=== PATIENT | female | born 1980 | race Caucasian/White ===

== ENCOUNTER 2024-02-29 17:56 | Emergency (ER) | payer MEDICAID, SELFPAY ==
[2024-02-29] VITALS (16 sets, daily range): BP systolic 92–128; BP diastolic 56–85; PULSE 90–118; RESP 19–29; TEMP 36.7; O2SAT 95
[2024-02-29] MEDS: Haloperidol 5 MG/ML VIAL 2 MG IM (18:00)
[2024-02-29] MEDS: diphenhydrAMINE 50 MG/ML VIAL IM (18:00)
--- NOTE | 2024-02-29 18:15 | ED.GENADUL_ITS ---
Discharge Plan Disposition Patient Disposition: Home Condition: Stable Discharge Details Clinical Impression: Drug use disorder ED Provider: Johnson Shook Home Meds and New Rx's Prescriptions: No Action No Known Home Meds Discharge Instructions Additional Instructions: PLEASE STOP USING DRUGS TO EXCESS HPI General Date/Time Provider Initiated Documentation: 02/29/24 17:58 . Limitations to Documentation: altered mental status . Information obtained by: patient and police . HPI Narrative: 43-year-old female with unknown past medical history is brought in by police with concern for altered mental status. The police state that they received multiple 911 calls regarding this patient wandering in the street and trying to get into cars. They report when they approached the patient, they found her to not be making any sense and they were concerned for her wellbeing. There were no statements of self-harm or concern for self-harm other than being in the street., The patient did report to the police that she has recently done methamphetamine. Patient is not able to provide additional history to me. At this time she states that she just wants ice water and heroin. Related Data Home Medications Medication Instructions Recorded Confirmed Unknown [No Known Home Meds] 02/29/24 02/29/24 Allergies Allergy/AdvReac Type Severity Reaction Status Date / Time Penicillins Allergy Mild Skin Rash Verified 02/29/24 18:30 Exam Narrative Exam Narrative: Review of Systems: All systems reviewed & are unremarkable except as noted in HPI and below Disheveled, agitated, is not wearing shoes NCAT PERRL, normal conjunctiva Tachycardic Unlabored respiratory effort Nondistended abdomen Extremities w/o deformity, no cyanosis, no edema Superficial abrasion noted on the right knee, there are multiple bruises and scratches noted bilateral lower extremities on feet and calves no focal neurologic deficits Appropriate mood and affect Medical Decision Making Emergent evaluation of altered mental status. Initial differential includes polysubstance abuse, less likely decompensated mental illness, no evidence of significant trauma. Patient brought in by police due to their concern for her walking in the street. Patient is fairly agitated slightly paranoid. She states she is concerned that the police shoot her. 1819 After medication, the patient is more calm and able to answer questions. She states that she was fine and then she was not fine. She states that she has been for becoming not finding she smoked crack. 1919 Lab work reviewed. Slightly elevated white blood cell count, no anemia. There is shift noted. Suspect this is stress and not infectious etiology. Potassium slightly low. There is mild elevation in BUN and creatinine. She is being resuscitated with IV fluids. Her CPK is only slightly elevated at 258, I do not suspect rhabdo. Her thyroid study is within normal limits. Her alcohol level is 0. She is currently being monitored and vital signs are stable. Okay to remove the restraints at this time 2049 Patient has been observed in the emergency department, her vitals have been stable. Her mental status has continued to improve and normalized. At this time I do not think that there is any additional emergent condition that needs further evaluation. I suspect her behavior and symptoms are secondary to crack use. She has metabolized. Will contact her boyfriend to see if we can get her a ride home. Medical Records Medical records reviewed: Yes I reviewed the patient's medical records. Lab Data Lab results reviewed: Yes I reviewed the patient's lab results. Quality:SDOH Health Related Social Needs: No Data to Display PFSH All Active Problems (Updated 02/29/24 @ 21:06 by Johnson Shook MD) Drug use disorder (Acute) Social History Smoking/Tobacco Use Status: Never Smoking risk assessment performed?: Yes Alcohol Intake: current Drug use: Daily Substance use type: marijuana, crack/cocaine, amphetamines, opiates, painkillers, IV drugs and methamphetamine In current or past relationships, have you been: made to feel afraid Do you feel safe at home: No Do you feel safe in your relationship?: No Additional Social history: afraid at home
[2024-02-29 18:33] LABS: Abs Immature Grans 0.14 10^3/uL (0.0-0.06); Absolute Basophil Count 0.04 10^3/uL (0.0-0.2); Absolute Eosinophil Count 0.02 10^3/uL (0.0-0.7); Absolute Lymphocyte Count 1.12 10^3/uL (1.2-3.4); Basophils % 0.2 %; Eosinophils % 0.1 %; HCT 39.3 % (36.0-46.0); HGB 12.4 g/dL (11.2-15.7); Immature Grans % 0.8 %; Lymphocytes % 6.1 %; MCH 26.6 pg (27.0-33.0); MCHC 31.6 % (32.0-36.0); MCV 84 fL (80-95); MPV 8.9 fL (8.0-11.0); Neutrophils % 85.8 %; Platelet Count 367 10^3/uL (130-400); RBC 4.67 10^6/uL (3.93-5.22); RDW 16.2 % (11.7-14.6); RDW-SD 49.5 fL
[2024-02-29 18:34] LABS: Absolute Monocyte Count 1.29 10^3/uL (0.1-0.8); Absolute Neutrophil Count 15.79 10^3/uL (1.2-6.7)
[2024-02-29] MEDS: LORazepam 2 MG/ML VIAL IM (18:37)
[2024-02-29] MEDS: Normal Saline 1,000 ML 1000 ML IV ×2 (18:40→20:00)
[2024-02-29 18:49] LABS: ALT 26 U/L (14-59); AST 34 U/L (15-37); Albumin 3.7 g/dL (3.4-5.0); Alkaline Phosphatase 112 U/L (46-116); Anion Gap 11.6 mmol/L (3-11); BUN 19 mg/dL (7-18); Bilirubin, Total 0.31 mg/dL (0.2-1.0); CO2 25.4 mmol/L (21.0-32.0); CREATININE 1.1 mg/dL (0.55-1.02); Calcium 9.1 mg/dL (8.5-10.1); Chloride 108 mmol/L (98-107); Creatine Kinase 258 U/L (26-192); Estimated GFR 63.15 (mL/min/1.73m2); Glucose 145 mg/dL (74-106); Magnesium 2.1 mg/dL (1.8-2.4); Potassium 3.4 mmol/L (3.5-5.1); Sodium 145 mmol/L (136-145); Total Protein 7.8 g/dL (6.4-8.2)
[2024-02-29 18:59] LABS: TSH 1.02 uIU/Ml (0.36-3.74)
[2024-02-29 19:09] LABS: ETHANOL BLOOD < 3.0 mg/dL (<10)
--- NOTE | 2024-02-29 19:09 | PDOC.CMSAFE ---
Date of service: 02/29/24 Time of Service: 19:14 Care Management Safety Plan Status Status: Interim Reason for Wait Reason for Wait: Medical Clearance Safety Plan Safety Plan: Jennyfer was brought in by [facility] after found wondering in public. She has not made any SI/HI statements, but presents as delusional and not making sense, per [facility]. She reported to police that she recently used methamphetamine. She is not yet medically cleared. CM will respond to ED to assess patient after patient has been medically cleared and assessed by screener. If screener deems patient meets criteria for psychiatric stabilization CM will facilitate interdepartmental huddle with [facility] screener for safety planning considerations and meet with patient to review [facility] policy and safety plan, establish individual wishes for treatment and maintain patient rights. In the interim; please note safety plan below to guide patient care while awaiting further assessment in the ED.? SAFETY PLAN: 1. Will remain on suicide precautions and in paper clothes.? 2. Will remain in room under direct supervision of one-on-one staff at all times provided by MARIA C, ELECTRICAL CONTROL ASSEMBLER paint line supervisor. 3. May have paper cups, plates, finger foods as well as a cardboard spoon with which to eat meals. 4. Follow [facility] Management of the Admitted Behavioral Health Patient policy. 5. Comfort bath system vs shower, at RN discretion. 6. No personal belongings 7. No visitors. 8. Phone: limited to [facility] cordless phone, at RN discretion. 9. Due to VOLUNTARY status, if patient wishes to leave [facility], staff will contact [facility] Crisis Screener ([phone]) as soon as possible. In the event of elopement, notify [facility] Police ([phone]). ? If deemed appropriate for inpatient psychiatric care, safety plan will be established with patient, and care team, to adhere to patient goals, identify restrictions based on behavioral status, address nutrition, and determine allowed personal belongings, tools for hygiene and personal care. As well plan will determine level of activity including ambulation, level of supervision, visitors, and determine privileges based on level of acuity, behaviors and level of engagement by patient.
[2024-02-29] MEDS: Normal Saline Flush 10 ML SYR IVP (20:16)
== END 2024-02-29 21:24 | disposition home or self-care (01) ==
LOC: ER 22:51
PROVIDERS: Emergency Provider Emergency Medicine
DX: F19.10 Other psychoactive substance abuse, uncomplicated (principal); R41.82 Altered mental status, unspecified
CPT/HCPCS: 36415; 80053; 82550; 96360; 96361; 96372; 99285; 80320; 83735; 84443; 85025; 99283; J1200; J1630; J2060

== ENCOUNTER 2024-02-29 23:54 | Emergency (ER) | payer MEDICAID, SELFPAY ==
--- NOTE | 2024-02-29 23:56 | ED.GENADUL_ITS ---
Discharge Plan Disposition Condition: Stable Discharge Details Chief Complaint: PsychEval Clinical Impression: Substance abuse, Paranoia Primary Care Provider: Unknown,Unknown ED Provider: Felix Starkey Home Meds and New Rx's Prescriptions: No Action No Known Home Meds HPI General Mode of arrival: ambulatory . Date/Time Provider Initiated Documentation: 02/29/24 23:56 . Limitations to Documentation: no limitations . Information obtained by: patient . HPI Narrative: Patient has checked back into the ED with complaint of not feeling safe to go home. She had arrived earlier this day with [facility] and altered mental status. She was medicated. Ultimately determined that she had been using crack cocaine today. She was discharged but once in the waiting room while waiting for a ride home began making statements that she did not feel safe going home. A friend did arrive and was upset that she was being discharged. He reports having her at [facility] at some point recently. He feels he needs a mental health evaluation. On direct questioning of the patient back in the ED she reports feeling like somebody is going to hurt her at home. She does not actually name an individual or person. She just states that she has this feeling. Denies SI or HI. Denies physical complaints. Admits to drug use. Related Data Home Medications Medication Instructions Recorded Confirmed Unknown [No Known Home Meds] 02/29/24 02/29/24 Allergies Allergy/AdvReac Type Severity Reaction Status Date / Time Penicillins Allergy Mild Skin Rash Verified 02/29/24 18:30 General BLANCHE: 2 Review of Systems Narrative: Per HPI Exam Narrative Exam Narrative: Const: WDWN female in NAD. VS per triage. HEENT: NC/AT. Normal facial exam. Neck: Supple. Trachea midline. Lungs: Normal respiratory effort. Lungs are clear. Cor: RRR without murmur. Good radial pulses. GI: Soft/ND. Neuro: Difficulty staying awake, but oriented. Normal speech, gait. Cranial nerves II - XII grossly intact. No gross motor or sensory deficit. Skin: Abrasions, track wright, bruises noted. Psych: No SI or HI, feels unsafe at home because she feels someone is trying to get her. Medical Decision Making I reviewed the patient's previous ED visit from today. Laboratory studies with elevated white count, slightly low potassium, slightly elevated BUN and creatinine. Agree with assessment that the elevated white count likely related to stress reaction. She received IV fluids here. She is able to eat and drink normally so suspect her mild hypokalemia will correct itself. Her alcohol level was 0. No urine drug screen obtained so this is ordered tonight. Urine test ordered. Cleared for mental health evaluation. Patient spoke with [facility]. They received the same information I did in regards to no SI or HI but paranoia regarding feeling that people are out to get her leading to her feeling unsafe at home. She is voluntary requesting mental health and drug addiction treatment. [facility] recommends holding overnight, reevaluation in the morning, but they are sending out referrals for inpatient admission. Lab Data Lab results reviewed: Yes I reviewed the patient's lab results. PFSH All Active Problems (Updated 03/01/24 @ 00:30 by Felix Starkey MD) Paranoia (Acute) Substance abuse (Acute) Drug use disorder (Acute) Social History Smoking/Tobacco Use Status: Never Smoking risk assessment performed?: Yes Alcohol Intake: current Drug use: Daily Substance use type: marijuana, crack/cocaine, amphetamines, opiates, painkillers, IV drugs and methamphetamine Details: last use this evening 02/29/24 Housing: house In current or past relationships, have you been: made to feel afraid Do you feel safe at home: No Do you feel safe in your relationship?: No Additional Social history: afraid at home
[2024-03-01] VITALS: BP 103/78; PULSE 89; RESP 16; TEMP 36.6; O2SAT 95
[2024-03-01 00:33] LABS: *AMPHETAMINES SCREEN URINE Positive (Negative); *BARBITURATES SCREEN URINE Negative (Negative); *BENZODIAZEPINES SCREEN URINE Negative (Negative); Cannabinoids THC Positive (Negative); Cocaine Screen,Urine Positive (Negative); METHADONE URINE SCREEN Negative (Negative); OPIATES URINE SCREEN Negative (Negative)
[2024-03-01 00:36] LABS: Tricyclic Antidepressants Negative (Negative)
--- NOTE | 2024-03-01 00:40 | PDOC.MHCN_ITS ---
Date of service: 03/01/24 Time of Service: 00:27 Mental Health Emergency Note Release [facility] release signed:: No Reason for Visit Client is seeking inpatient treatment In the last 2 weeks has the pt presented for ES prior to today?: Yes, presented at [facility] ED Client Information Client is: New Well Housed: Yes Non Suicidal Self Injury Current: No History: No Safety Risk/Harm to Self or Others Current Ideation to Harm Self or Others: No Risk: Does risk to harm exist?: No Risk: Low Risk Duty to warn indicated: No Asssessment/Mental Status Appearance: Disheveled Attitude: Passive and Guarded Behavior: Poor impulse control and Gait disturbances Speech: Slow and Slurred Affect: Flat Mood: Stressed and Anxious Thought process: Poverty of content Hallucinations: No evidence Delusions: yes, Persectory/Paranoid Attention: Poor concentration Perception: Not impaired Orientation: Fully orientated Memory: Intact Insight: Poor Judgement: Poor Neurovegetative Symptoms Sleep: Decrease Appetitie: No change Interests: No change Energy: No change Libido: Not applicable Substance Use: Do you use nicotine?: No Have you used substances in the last 7 days?: yes, Client reports using cocaine today and meth yesterday. Additional Issues: Assaultive/Threatening Behavior: No Medical Concerns: No Client engaged in active self harm w/weapon: No Threatening to run away: No Child reported abuse/neglect: No Voluntarily presenting for services: Yes Domestic violence is a concern: No Extreme Psychosis or extreme behavior is present: Yes Impression Jennyfer presents to this story writer laying in the hospital bed, in street clothes, with slurred speech, closed eyes, and minimal responses. Jennyfer reports that she does not feel safe at home because she feels like someone is there to harm her. Jennyfer reports she is unsure who this person is or if there is someone who would harm her. Jennyfer reports she has never felt like this before and is not sure what brought this on. Jennyfer denies SI, HI, NSSI. Jennyfer reports no current mental health diagnosis or medications on board.Jennyfer's current presentation is displaying an altered mental status, poor insight and judgment, and inability to make a sound and safe decision. This story writer cannot identify if this is her true mental status, due to sleep deprevation, or due to her recent substance usage. Jennyfer will remain at [facility] voluntarily and will be reassessed in the morning. Plan/Disposition Recommended Disposition: Hospitalization (referrals will be sent to all hospitals.) facilities contacted. Plan: Jennyfer will remain at [facility] until voluntary placement is found Person reported agreement to plan: Yes Reports/communication Outcome discussed with: ED/Personnel
--- NOTE | 2024-03-01 09:03 | W.EDPROG ---
Date of service: 03/01/24 Time of Service: 09:03 Medical Decision Making I received signout on this 43-year-old patient in the emergency department feeling unsafe at home voluntarily. No active behavioral issues last shift. Will have [facility] reassess the patient. 9:36 AM I spoke with Myranda from [facility] who had assessed this patient. Myranda felt that the patient would require inpatient hospitalization. Patient will remain voluntary in the emergency department. Patient is on no home medications. I ordered the patient a regular diet on a safety tray. 4:45 PM No active behavioral issues on my shift. Patient signed out to the [facility] evening provider pending placement. Quality:SDOH Health Related Social Needs: No Data to Display Discharge Plan Disposition Condition: Stable Discharge Details Chief Complaint: PsychEval Clinical Impression: Substance abuse, Paranoia Primary Care Provider: Unknown,Unknown ED Provider: Tonio Cervantes Home Meds and New Rx's Prescriptions: No Action No Known Home Meds
--- NOTE | 2024-03-01 18:47 | W.EDPROG ---
Date of service: 03/01/24 Time of Service: 18:48 Medical Decision Making There is an from off going provider. Patient was evaluated yesterday with altered mental status after crack cocaine use. She was discharged home but sat in the lobby and stated that she did not feel safe going home. She does not endorse any SI or HI. She has been evaluated by mental health services and is pending voluntary psychiatric placement. Medical Records Medical records reviewed: Yes I reviewed the patient's medical records. Quality:[facility] Health Related Social Needs: No Data to Display Sign Out Sign Out Data: Sign Out Comment: 43-year-old female history of substance abuse seen initially yesterday subsequently discharged return paranoid with reported delusions pending voluntary placement. No active behavioral issues last shift. Last updated by Tonio Cervantes MD at 03/01/24 16:47 Discharge Plan Disposition Condition: Stable Discharge Details Chief Complaint: PsychEval Clinical Impression: Substance abuse, Paranoia Primary Care Provider: Unknown,Unknown ED Provider: Johnson Shook Home Meds and New Rx's Prescriptions: No Action omeprazole 20 mg capsule,delayed release(DR/EC) 20 mg PO HS
--- NOTE | 2024-03-01 18:52 | CMSP_ITS ---
Date of service: 03/01/24 Time of Service: 18:52 Care Management Safety Plan Status Status: Voluntary Reason for Wait Reason for Wait: Inpatient Admission Safety Plan Safety Plan: VOLUNTARY FOR INPATIENT PSYCHIATRIC STABILIZATION.? Patient is appropriate in all interactions since arriving at [facility]; Pt has demonstrated appropriate coping and communication skills, has articulated his or her needs and concerns and is fully engaged during staff interactions. Safety plan has been established with patient, and care team, to adhere to patient goals, identify restrictions based on behavioral status, address nutrition, and determine allowed personal belongings, tools for hygiene and personal care. Determine level of activity including ambulation, level of supervision, visitors, and determine privileges based on behaviors and level of engagement by pt. VOLUNTARY SAFETY PLAN: 1. Will remain on suicide precautions, in paper clothes 2. Will remain in Zone B under direct supervision of one-on-one staff at all times provided by [employer]; MARIA C, BIOMATERIALS ENGINEER line crew supervisor. 3. May have paper cups, plates, finger foods as well as a cardboard spoon with which to eat meals. 4. Follow [facility] Management of the Admitted Behavioral Health Patient policy. 5. Shower available in Zone B without restriction. 6. Personal belongings-soft items permitted at RN discretion. 7. Visitors-none at this time. 8. Activities: soft cart items approved per RN discretion. 9.? Bathroom available in Zone B without restriction. 10. Phone: limited to [facility] cordless phone at RN discretion. Due to VOLUNTARY status, if patient wishes to leave [facility], staff will contact [facility] Crisis Screener ([phone]) and Vp Of Customer Experience Strategy ([phone]) as soon as possible. In the event of elopement, notify [facility] Police ([phone]). Patient is currently voluntarily at [facility] and seeking inpatient admission when a bed becomes available. [facility] Frontline Gre Instructor will continue seeking jose cement. Please contact the Vp Of Customer Experience Strategy ([phone]) and [facility] Gre Instructor ([phone]) for any needed changes in the Safety Plan. Safety plan has been provided to interdepartmental care team.
--- NOTE | 2024-03-01 18:52 | PDOC.CMSAFE ---
Date of service: 03/01/24 Time of Service: 18:52 Care Management Safety Plan Status Status: Voluntary Reason for Wait Reason for Wait: Inpatient Admission Safety Plan Safety Plan: VOLUNTARY FOR INPATIENT PSYCHIATRIC STABILIZATION.? Patient is appropriate in all interactions since arriving at [facility]; Pt has demonstrated appropriate coping and communication skills, has articulated his or her needs and concerns and is fully engaged during staff interactions. Safety plan has been established with patient, and care team, to adhere to patient goals, identify restrictions based on behavioral status, address nutrition, and determine allowed personal belongings, tools for hygiene and personal care. Determine level of activity including ambulation, level of supervision, visitors, and determine privileges based on behaviors and level of engagement by pt. VOLUNTARY SAFETY PLAN: 1. Will remain on suicide precautions, in paper clothes 2. Will remain in Zone B under direct supervision of one-on-one staff at all times provided by [employer]; MARIA C, PATTERN DATA OPERATOR professor of history. 3. May have paper cups, plates, finger foods as well as a cardboard spoon with which to eat meals. 4. Follow [facility] Management of the Admitted Behavioral Health Patient policy. 5. Shower available in Zone B without restriction. 6. Personal belongings-soft items permitted at RN discretion. 7. Visitors-none at this time. 8. Activities: soft cart items approved per RN discretion. 9.? Bathroom available in Zone B without restriction. 10. Phone: limited to [facility] cordless phone at RN discretion. Due to VOLUNTARY status, if patient wishes to leave [facility], staff will contact [facility] Crisis Screener ([phone]) and Editor House Organ ([phone]) as soon as possible. In the event of elopement, notify [facility] Police ([phone]). Patient is currently voluntarily at [facility] and seeking inpatient admission when a bed becomes available. [facility] Frontline Preventive Maintenance Engineer will continue seeking placement. Please contact the Editor House Organ ([phone]) and [facility] Preventive Maintenance Engineer ([phone]) for any needed changes in the Safety Plan. Safety plan has been provided to interdepartmental care team.
--- NOTE | 2024-03-01 18:53 | CMPROGNOTE_ITS ---
Date of service: 03/01/24 Time of Service: 18:53 Care Management Progress Note Progress Note Text Progress Note Text: Jennyfer met with [facility] today and expressed both SI and HI, passive, with no plan or intent. She stated that she feels that people in her house are slipping her things and trying to kill her. Myranda, [facility], plans to gather corroborating information from [facility], if possible. Jennyfer stated that she is willing to go to inpatient psychiatric treatment; she meets criteria for voluntary status. Jennyfer was medically cleared by the provider today, and will move to zone B once a bed is available. [facility] is sending referrals to all accepting facilities. Safety plan in place. CM will continue to follow.
[2024-03-01] MEDS: QUEtiapine 50 MG TAB PO (21:40)
[2024-03-01] MEDS: Omeprazole 20 MG CAPCR (21:41)
--- NOTE | 2024-03-02 00:01 | NUR.NOTE ---
Pt info sent to [facility] [place] deographics, HCG, provider notes, and med list. As requested by [facility].
[2024-03-02] MEDS: Acetaminophen 325 MG TAB 650 MG PO (12:16)
[2024-03-02 13:41] VITALS: BP 122/78; PULSE 97; TEMP 36.7; O2SAT 98
--- NOTE | 2024-03-02 17:54 | ED.PROG_ITS ---
Date of service: 03/02/24 Time of Service: 17:54 Medical Decision Making Care was signed out by Dr. Starkey this morning. Please see his documentation regarding earlier ED presentation and course. Patient was noted to be medically cleared at time of signout. Patient was reassessed today: She continues to feel depressed and anxious. Her paranoia has improved. She notes she received Seroquel yesterday and that this has helped. She is requesting another dose of Seroquel now. Seroquel 50 mg p.o. ordered. Patient does note some swelling of her hands after having been handcuffed. Forearms, wrist and hands examined and no signs of fracture or acute inflammation. Plan for inpatient psychiatric treatment and awaiting placement. Patient is here voluntarily. Quality:[facility] Health Related Social Needs: No Data to Display Sign Out Sign Out Data: Sign Out Comment: 43-year-old female history of substance abuse seen initially yesterday subsequently discharged return paranoid with reported delusions pending voluntary placement. No active behavioral issues last shift. Last updated by Tonio Cervantes MD at 03/01/24 16:47 Sign Out Comment: PENDING VOLUNTARY IP PSYCH PLACEMENT NO SI, HI Last updated by Johnson Shook MD at 03/01/24 22:29 Sign Out Comment: Continues to remain voluntary placement for paranoia and substance abuse. No SI/HI. No issues/changes overnight. Last updated by Felix Starkey MD at 03/02/24 07:03 Discharge Plan Disposition Condition: Stable Discharge Details Chief Complaint: PsychEval Clinical Impression: Substance abuse, Paranoia Primary Care Provider: Unknown,Unknown ED Provider: Felix Hardy Home Meds and New Rx's Prescriptions: No Action omeprazole 20 mg capsule,delayed release(DR/EC) 20 mg PO HS
[2024-03-02] MEDS: QUEtiapine 50 MG TAB PO (18:02)
--- NOTE | 2024-03-02 19:02 | ED.PROG_ITS ---
Date of service: 03/02/24 Time of Service: 19:02 Medical Decision Making Patient seeking voluntary placement for paranoia, no issues reported on prior shift and currently calm and cooperative without acute complaints, will continue to monitor until safe disposition found Quality:SDOH Health Related Social Needs: No Data to Display Sign Out Sign Out Data: Sign Out Comment: 43-year-old female history of substance abuse seen initially yesterday subsequently discharged return paranoid with reported delusions pending voluntary placement. No active behavioral issues last shift. Last updated by Tonio Cervantes MD at 03/01/24 16:47 Sign Out Comment: PENDING VOLUNTARY IP PSYCH PLACEMENT NO SI, HI Last updated by Johnson Shook MD at 03/01/24 22:29 Sign Out Comment: Continues to remain voluntary placement for paranoia and substance abuse. No SI/HI. No issues/changes overnight. Last updated by Felix Starkey MD at 03/02/24 07:03 Sign Out Comment: Plan for inpatient psychiatric treatment and awaiting [facility] t. Patient is here voluntarily. Last updated by Felix Hardy MD at 03/02/24 17:57 Sign Out Comment: voluntary for paranoia, no issues during shift Last updated by Mickey Mackay MD at 03/02/24 19:00 Discharge Plan Disposition Condition: Stable Discharge Details Chief Complaint: PsychEval Clinical Impression: Substance abuse, Paranoia Primary Care Provider: Unknown,Unknown ED Provider: Mickey Mackay Home Meds and New Rx's Prescriptions: No Action omeprazole 20 mg capsule,delayed release(DR/EC) 20 mg PO HS
[2024-03-02] MEDS: Omeprazole 20 MG CAPCR PO (19:53)
--- NOTE | 2024-03-02 19:55 | CMPROGNOTE_ITS ---
Date of service: 03/02/24 Time of Service: 19:55 Care Management Progress Note Progress Note Text Progress Note Text: Jennyfer continues to endorse both SI (12/03) and HI (12/03) today to [facility] clinician. She has been cooperative and is voluntarily seeking inpatient psychiatric hospitalization. Jennyfer stated that she has insurance through [employer] ([place] which is not accepted at . CM and [facility] discussed options today regarding her plan of care due to this potential barrier. [facility] clinician will contact the insurance company and request out of network coverage. CM sent a referral to [facility] to determine if she is eligible for KB due to access to care. CM requested that [facility] contact [facility] medication care manager to inquire about a level one bed, if this continues to be a barrier to care. If Jennyfer improves well enough to be safety planned home into the care of her mother and/or brother, they are discussing bringing her to [place], and will seek outpatient services, if indicated. Jennyfer's s/o, Kaiser has been requesting visitation. Due to his previous presentation to the ED, and potential for Jennyfer to become dysregulated during a visit, visitation continues to be suspended at this time. This will be reviewed daily with staff. Referrals have been sent by [facility] to all accepting facilities. Safety plan in place. CM will continue to follow.
--- NOTE | 2024-03-02 19:55 | CMSP_ITS ---
Date of service: 03/02/24 Time of Service: 19:55 Care Management Safety Plan Status Status: Voluntary Reason for Wait Reason for Wait: Inpatient Admission Safety Plan Safety Plan: VOLUNTARY FOR INPATIENT PSYCHIATRIC STABILIZATION.? Patient is appropriate in all interactions since arriving at [facility]; Pt has demonstrated appropriate coping and communication skills, has articulated his or her needs and concerns and is fully engaged during staff interactions. Safety plan has been established with patient, and care team, to adhere to patient goals, identify restrictions based on behavioral status, address nutrition, and determine allowed personal belongings, tools for hygiene and personal care. Determine level of activity including ambulation, level of supervision, visitors, and determine privileges based on behaviors and level of engagement by pt. VOLUNTARY SAFETY PLAN: 1. Will remain on suicide precautions, in paper clothes 2. Will remain in Zone B under direct supervision of one-on-one staff at all times provided by [employer]; MARIA C, PLAYGROUND DIRECTOR steam fitter supervisor. 3. May have paper cups, plates, finger foods as well as a cardboard spoon with which to eat meals. 4. Follow [facility] Management of the Admitted Behavioral Health Patient policy. 5. Shower available in Zone B without restriction. 6. Personal belongings-soft items permitted at RN discretion. 7. Visitors-none at this time. 8. Activities: soft cart items approved per RN discretion. 9.? Bathroom available in Zone B without restriction. 10. Phone: limited to [facility] cordless phone at RN discretion. Due to VOLUNTARY status, if patient wishes to leave [facility], staff will contact [facility] Crisis Screener ([phone]) and Product Engineer ([phone]) as soon as possible. In the event of elopement, notify [facility] Police ([phone]). Patient is currently voluntarily at [facility] and seeking inpatient admission when a bed becomes available. [facility] Frontline Bulk Loader will continue seeking placement. Please contact the Product Engineer ([phone]) and [facility] Bulk Loader ([phone]) for any needed changes in the Safety Plan. Safety plan has been provided to interdepartmental care team.
--- NOTE | 2024-03-02 19:55 | PDOC.CMSAFE ---
Date of service: 03/02/24 Time of Service: 19:55 Care Management Safety Plan Status Status: Voluntary Reason for Wait Reason for Wait: Inpatient Admission Safety Plan Safety Plan: VOLUNTARY FOR INPATIENT PSYCHIATRIC STABILIZATION.? Patient is appropriate in all interactions since arriving at [facility]; Pt has demonstrated appropriate coping and communication skills, has articulated his or her needs and concerns and is fully engaged during staff interactions. Safety plan has been established with patient, and care team, to adhere to patient goals, identify restrictions based on behavioral status, address nutrition, and determine allowed personal belongings, tools for hygiene and personal care. Determine level of activity including ambulation, level of supervision, visitors, and determine privileges based on behaviors and level of engagement by pt. VOLUNTARY SAFETY PLAN: 1. Will remain on suicide precautions, in paper clothes 2. Will remain in Zone B under direct supervision of one-on-one staff at all times provided by [employer]; MARIA C, ADVERTISING PHOTOGRAPHER social worker school. 3. May have paper cups, plates, finger foods as well as a cardboard spoon with which to eat meals. 4. Follow [facility] Management of the Admitted Behavioral Health Patient policy. 5. Shower available in Zone B without restriction. 6. Personal belongings-soft items permitted at RN discretion. 7. Visitors-none at this time. 8. Activities: soft cart items approved per RN discretion. 9.? Bathroom available in Zone B without restriction. 10. Phone: limited to [facility] cordless phone at RN discretion. Due to VOLUNTARY status, if patient wishes to leave [facility], staff will contact [facility] Crisis Screener ([phone]) and Patent Law Specialist ([phone]) as soon as possible. In the event of elopement, notify [facility] Police ([phone]). Patient is currently voluntarily at [facility] and seeking inpatient admission when a bed becomes available. [facility] Frontline Marketing Database Coordinator will continue seeking placement. Please contact the Patent Law Specialist ([phone]) and [facility] Marketing Database Coordinator ([phone]) for any needed changes in the Safety Plan. Safety plan has been provided to interdepartmental care team.
[2024-03-02] MEDS: diphenhydrAMINE 25 MG CAP PO (23:28)
[2024-03-02] MEDS: LORazepam 1 MG TAB 2 MG PO (23:28)
--- NOTE | 2024-03-03 07:29 | ED.PROG_ITS ---
Date of service: 03/03/24 Time of Service: 07:29 Medical Decision Making Patient remains in the ED awaiting voluntary inpatient bed for paranoia and substance abuse. No issues overnight. Sign Out Sign Out Data: Sign Out Comment: 43-year-old female history of substance abuse seen initially yesterday subsequently discharged return paranoid with reported delusions pending voluntary placement. No active behavioral issues last shift. Last updated by Tonio Cervantes MD at 03/01/24 16:47 Sign Out Comment: PENDING VOLUNTARY IP PSYCH PLACEMENT NO SI, HI Last updated by Johnson Shook MD at 03/01/24 22:29 Sign Out Comment: Continues to remain voluntary placement for paranoia and substance abuse. No SI/HI. No issues/changes overnight. Last updated by Felix Starkey MD at 03/02/24 07:03 Sign Out Comment: Plan for inpatient psychiatric treatment and awaiting placement. Patient is here voluntarily. Last updated by Felix Hardy MD at 03/02/24 17:57 Sign Out Comment: voluntary for paranoia, no issues during shift Last updated by Mickey Mackay MD at 03/02/24 19:00 Discharge Plan Disposition Condition: Stable Discharge Details Chief Complaint: PsychEval Clinical Impression: Substance abuse, Paranoia Primary Care Provider: Unknown,Unknown ED Provider: Felix Starkey [facility] and New Rx's Prescriptions: No Action omeprazole 20 mg capsule,delayed release(DR/EC) 20 mg PO HS
--- NOTE | 2024-03-03 09:50 | NUR.NOTE ---
PT is awake and went to [facility] Nursing Note:
[2024-03-03] MEDS: LORazepam 1 MG TAB PO ×2 (10:48→16:20)
--- NOTE | 2024-03-03 10:51 | CMSP_ITS ---
Date of service: 03/03/24 Time of Service: 10:51 Care Management Safety Plan Status Status: Voluntary Reason for Wait Reason for Wait: Inpatient Admission Safety Plan Safety Plan: VOLUNTARY FOR INPATIENT PSYCHIATRIC STABILIZATION.? Patient is appropriate in all interactions since arriving at [facility]; Pt has demonstrated appropriate coping and communication skills, has articulated his or her needs and concerns and is fully engaged during staff interactions. Safety plan has been established with patient, and care team, to adhere to patient goals, identify restrictions based on behavioral status, address nutrition, and determine allowed personal belongings, tools for hygiene and personal care. Determine level of activity including ambulation, level of supervision, visitors, and determine privileges based on behaviors and level of engagement by pt. Jennyfer continues to endorse SI/HI and requires inpatient psych treatment. Jennyfer recently moved to [place] and currently has State Funded Insurance through [place], which is a barrier to inpatient psych treatment. CHW from [facility] met with Jennyfer and was able to get her switched over to [place] Medicaid, which should be active in 24hours. CM notified Ayleen from [facility] and reviewed with [facility] B RN Igor. CM will continue to follow. VOLUNTARY SAFETY PLAN: 1. Will remain on suicide precautions, in paper clothes 2. Will remain in Zone B under direct supervision of one-on-one staff at all times provided by [employer]; MARIA C, ADVANCED MANUFACTURING CONSULTANT call circuit worker. 3. May have paper cups, plates, finger foods as well as a cardboard spoon with which to eat meals. 4. Follow [facility] Management of the Admitted Behavioral Health Patient policy. 5. Shower available in Zone B without restriction. 6. Personal belongings-soft items permitted at RN discretion. 7. Visitors-none at this time. 8. Activities: soft cart items approved per RN discretion. 9.? Bathroom available in Zone B without restriction. 10. Phone: limited to [facility] cordless phone at RN discretion. Due to VOLUNTARY status, if patient wishes to leave [facility], staff will contact [facility] Crisis Screener ([phone]) and Radiotelegraph Operator ([phone]) as soon as possible. In the event of elopement, notify [facility] Police ([phone]). Patient is currently voluntarily at [facility] and seeking inpatient admission when a bed becomes available. [facility] Frontline Tableau Analyst will continue seeking placement. Please contact the Radiotelegraph Operator ([phone]) and [facility] Tableau Analyst ([phone]) for any needed changes in the Safety Plan. Safety plan has been provided to interdepartmental care team.
--- NOTE | 2024-03-03 10:51 | PDOC.CMSAFE ---
Date of service: 03/03/24 Time of Service: 10:51 Care Management Safety Plan Status Status: Voluntary Reason for Wait Reason for Wait: Inpatient Admission Safety Plan Safety Plan: VOLUNTARY FOR INPATIENT PSYCHIATRIC STABILIZATION.? Patient is appropriate in all interactions since arriving at [facility]; Pt has demonstrated appropriate coping and communication skills, has articulated his or her needs and concerns and is fully engaged during staff interactions. Safety plan has been established with patient, and care team, to adhere to patient goals, identify restrictions based on behavioral status, address nutrition, and determine allowed personal belongings, tools for hygiene and personal care. Determine level of activity including ambulation, level of supervision, visitors, and determine privileges based on behaviors and level of engagement by pt. Jennyfer continues to endorse SI/HI and requires inpatient psych treatment. Jennyfer recently moved to [place] and currently has State Funded Insurance through [place], which is a barrier to inpatient psych treatment. CHW from [facility] met with Jennyfer and was able to get her switched over to [place] Medicaid, which should be active in 24hours. CM notified Ayleen from [facility] and reviewed with [facility] B RN Igor. CM will continue to follow. VOLUNTARY SAFETY PLAN: 1. Will remain on suicide precautions, in paper clothes 2. Will remain in Zone B under direct supervision of one-on-one staff at all times provided by [employer]; MARIA C, DATA GOVERNANCE CONSULTANT grief counselor. 3. May have paper cups, plates, finger foods as well as a cardboard spoon with which to eat meals. 4. Follow [facility] Management of the Admitted Behavioral Health Patient policy. 5. Shower available in Zone B without restriction. 6. Personal belongings-soft items permitted at RN discretion. 7. Visitors-none at this time. 8. Activities: soft cart items approved per RN discretion. 9.? Bathroom available in Zone B without restriction. 10. Phone: limited to [facility] cordless phone at RN discretion. Due to VOLUNTARY status, if patient wishes to leave [facility], staff will contact [facility] Crisis Screener ([phone]) and Clinical Cytogenetics Director ([phone]) as soon as possible. In the event of elopement, notify [facility] Police ([phone]). Patient is currently voluntarily at [facility] and seeking inpatient admission when a bed becomes available. [facility] Frontline Edi Manager will continue seeking placement. Please contact the Clinical Cytogenetics Director ([phone]) and [facility] Edi Manager ([phone]) for any needed changes in the Safety Plan. Safety plan has been provided to interdepartmental care team.
--- NOTE | 2024-03-03 10:52 | PDOC.CMPRO ---
Date of service: 03/03/24 Time of Service: 10:52 Care Management Progress Note Progress Note Text Progress Note Text: Jennyfer is being closely monitored and screened by [facility] anPatient has coverage through [address] [place] [address], which State Funded Medical insurance through [place]. Jennyfer is unable to safety plan home with family due to endorsement of SI/HI. Inpatient psych treatment is needed CM spoke with HIRO
[2024-03-03 12:07] VITALS: BP 115/80; PULSE 83; RESP 20; TEMP 36.8; O2SAT 100
--- NOTE | 2024-03-03 17:30 | ED.PROG_ITS ---
Date of service: 03/03/24 Time of Service: 17:30 Medical Decision Making Patient resting comfortably no acute distress. Has asked for multiple doses of anxiolysis today. Calm cooperative. Expressing some HI as well as SI to [facility] counselors. Awaiting placement Quality:SDOH Health Related Social Needs: No Data to Display Sign Out Sign Out Data: Sign Out Comment: 43-year-old female history of substance abuse seen initially yesterday subsequently discharged return paranoid with reported delusions pending voluntary placement. No active behavioral issues last shift. Last updated by Tonio Cervantes MD at 03/01/24 16:47 Sign Out Comment: PENDING VOLUNTARY IP PSYCH PLACEMENT NO SI, HI Last updated by Johnson Shook MD at 03/01/24 22:29 Sign Out Comment: Continues to remain voluntary placement for paranoia and substance abuse. No SI/HI. No issues/changes overnight. Last updated by Felix Starkey MD at 03/02/24 07:03 Sign Out Comment: Plan for inpatient psychiatric treatment and awaiting [facility]. Patient is here voluntarily. Last updated by Felix Hardy MD at 03/02/24 17:57 Sign Out Comment: voluntary for paranoia, no issues during shift Last updated by Mickey Mackay MD at 03/02/24 19:00 Sign Out Comment: Remains voluntary for inpatient psych admission for substance abuse and paranoia Last updated by Felix Starkey MD at 03/03/24 07:33 Discharge Plan Disposition Condition: Stable Discharge Details Chief Complaint: PsychEval Clinical Impression: Substance abuse, Paranoia Primary Care Provider: Unknown,Unknown ED Provider: Hermilo Harvey Home Meds and New Rx's Prescriptions: No Action omeprazole 20 mg capsule,delayed release(DR/EC) 20 mg PO HS
--- NOTE | 2024-03-03 18:05 | NUR.NOTE ---
Report given to [place] at [facility] Note:
[2024-03-03] MEDS: Omeprazole 20 MG CAPCR PO (19:42)
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
--- NOTE | 2024-03-03 22:54 | W.EDPROG ---
Date of service: 03/03/24 Time of Service: 22:54 Medical Decision Making This patient was signed out to me. Please see previous notes for H&P and initial eval. In brief, 43yo F presenting with paranoia, voluntary, medically cleared pending placement. Overnight no acute events. Will be signed out to oncoming physician, plan remains as above. Quality:[facility] Health Related Social Needs: No Data to Display Sign Out Sign Out Data: Sign Out Comment: 43-year-old female history of substance abuse seen initially yesterday subsequently discharged return paranoid with reported delusions pending voluntary placement. No active behavioral issues last shift. Last updated by Tonio Cervantes MD at 03/01/24 16:47 Sign Out Comment: PENDING VOLUNTARY IP PSYCH PLACEMENT NO SI, HI Last updated by Johnson Shook MD at 03/01/24 22:29 Sign Out Comment: Continues to remain voluntary placement for paranoia and substance abuse. No SI/HI. No issues/changes overnight. Last updated by Felix Starkey MD at 03/02/24 07:03 Sign Out Comment: Plan for inpatient psychiatric treatment and awaiting placement. Patient is here voluntarily. Last updated by Felix Hardy MD at 03/02/24 17:57 Sign Out Comment: voluntary for paranoia, no issues during shift Last updated by Mickey Mackay MD at 03/02/24 19:00 Sign Out Comment: Remains voluntary for inpatient psych admission for substance abuse and paranoia Last updated by Felix Starkey MD at 03/03/24 07:33 Sign Out Comment: SI, HI, voluntary, awaiting placement Last updated by Hermilo Harvey MD at 03/03/24 17:45 Sign Out Comment: SI, HI, voluntary, Ativan as needed added. Awaiting placement. No issues during shift. Last updated by Lizandro Zhu DO at 03/04/24 00:00 Discharge Plan Disposition Condition: Stable Discharge Details Chief Complaint: PsychEval Clinical Impression: Substance abuse, Paranoia Primary Care Provider: Unknown,Unknown ED Provider: Kathleen Sol Home Meds and New Rx's Prescriptions: No Action omeprazole 20 mg capsule,delayed release(DR/EC) 20 mg PO HS
[2024-03-04] MEDS: LORazepam 1 MG TAB PO ×3 (01:03→12:17)
[2024-03-04 08:31] VITALS: BP 126/40; PULSE 115; RESP 18; TEMP 35.6; O2SAT 98
--- NOTE | 2024-03-04 15:12 | ED.PROG_ITS ---
Date of service: 03/04/24 Time of Service: 15:12 Medical Decision Making Patient is resting comfortably no acute distress. Hemodynamically stable. Calm cooperative interactive. Patient tolerating p.o. not requiring any IV fluids or parenteral medication. Patient has received some doses of anxiolytics in the form of low-dose benzodiazepine over the last 48 hours by mouth. Patient has been medically cleared. Awaiting availability for inpatient psychiatric care Quality:[facility] Health Related Social Needs: No Data to Display Sign Out Sign Out Data: Sign Out Comment: 43-year-old female history of substance abuse seen initially yesterday subsequently discharged return paranoid with reported delusions pending voluntary placement. No active behavioral issues last shift. Last updated by Tonio Cervantes MD at 03/01/24 16:47 Sign Out Comment: PENDING VOLUNTARY IP PSYCH PLACEMENT NO SI, HI Last updated by Johnson Shook MD at 03/01/24 22:29 Sign Out Comment: Continues to remain voluntary placement for paranoia and substance abuse. No SI/HI. No issues/changes overnight. Last updated by Felix Starkey MD at 03/02/24 07:03 Sign Out Comment: Plan for inpatient psychiatric treatment and awaiting placement. Patient is here voluntarily. Last updated by Felix Hardy MD at 03/02/24 17:57 Sign Out Comment: voluntary for paranoia, no issues during shift Last updated by Mikcey Mackay MD at 03/02/24 19:00 Sign Out Comment: Remains voluntary for inpatient psych admission for substance abuse and paranoia Last updated by Felix tSarkey MD at 03/03/24 07:33 Sign Out Comment: SI, HI, voluntary, awaiting placement Last updated by Hermilo Harvey MD at 03/03/24 17:45 Sign Out Comment: SI, HI, voluntary, Ativan as needed added. Awaiting placement. No issues during shift. Last updated by Lizandro Zhu DO at 03/04/24 00:00 Sign Out Comment: Voluntary, medically cleared, SI/HI, pending placement. Last updated by Kathleen oSl MD at 03/04/24 07:11 Discharge Plan Disposition Condition: Stable Discharge Details Chief Complaint: PsychEval Clinical Impression: Substance abuse, Paranoia Primary Care Provider: Unknown,Unknown ED Provider: Hermilo Harvey Home Meds and New Rx's Prescriptions: No Action omeprazole 20 mg capsule,delayed release(DR/EC) 20 mg PO HS
[2024-03-04] MEDS: hydrOXYzine HCL 10 MG TAB PO (15:47)
--- NOTE | 2024-03-04 17:13 | CMSP_ITS ---
Date of service: 03/04/24 Time of Service: 17:18 Care Management Safety Plan Status Status: Voluntary Reason for Wait Reason for Wait: Inpatient Admission Safety Plan Safety Plan: VOLUNTARY FOR INPATIENT PSYCHIATRIC STABILIZATION.? Patient is appropriate in all interactions since arriving at [facility]; Pt has demonstrated appropriate coping and communication skills, has articulated his or her needs and concerns and is fully engaged during staff interactions. Safety plan has been established with patient, and care team, to adhere to patient goals, identify restrictions based on behavioral status, address nutrition, and determine allowed personal belongings, tools for hygiene and personal care. Determine level of activity including ambulation, level of supervision, visitors, and determine privileges based on behaviors and level of engagement by pt. VOLUNTARY SAFETY PLAN: 1. Will remain on suicide precautions, in paper clothes 2. Will remain in Zone B under direct supervision of one-on-one staff at all times provided by [employer]; MARIA C, CHART COMPUTER malt house supervisor. 3. May have paper cups, plates, finger foods as well as a cardboard spoon with which to eat meals. 4. Follow [facility] Management of the Admitted Behavioral Health Patient policy. 5. Shower available in Zone B without restriction. 6. Personal belongings-soft items permitted at RN discretion. 7. Visitors-none at this time. 8. Activities: soft cart items approved per RN discretion. 9.? Bathroom available in Zone B without restriction. 10. Phone: limited to [facility] cordless phone at RN discretion. Due to VOLUNTARY status, if patient wishes to leave [facility], staff will contact [facility] Crisis Screener ([phone]) and Collarette Separator ([phone]) as soon as possible. In the event of elopement, notify [facility] Police ([phone]). Patient is currently voluntarily at [facility] and seeking inpatient admission when a bed becomes available. [facility] Frontline Carbon Sequestration Plant Operator will continue seeking placement. Please contact the Collarette Separator ([phone]) and [facility] Carbon Sequestration Plant Operator ([phone]) for any needed changes in the Safety Plan. Safety plan has been provided to interdepartmental care team.
--- NOTE | 2024-03-04 17:19 | PDOC.CMPRO ---
Date of service: 03/04/24 Time of Service: 17:19 Care Management Progress Note Progress Note Text Progress Note Text: Jennyfer remains voluntary, seeking inpatient psychiatric stabilization. Per [facility], Jennyfer does not meet criteria to be held involuntarily at this time. If she requests to leave, [facility] should be contacted to create a safety plan. Jennyfer has requested visitation with her boyfriend, [facility]. Due to concerns shared with staff regarding his previous presentation in the ED, visitation will not be permitted at this time. CM was informed that Jennyfer was able to obtain KB with the support of [employer], but it will not be listed as 'active' until tomorrow. [facility] stated that they will wait for tomorrow for admission; CM contacted Maranda, admissions at , and requested that they reconsider, as she does have KB as of today, and this is a delay of care. requested updated clinicals stating that Jennyfer is not on IV fluids anymore, which were sent. informed CM that the referral continues to be reviewed at 1700 this evening. Safety plan in place; CM will continue to follow.
--- NOTE | 2024-03-04 18:37 | NUR.NOTE ---
gave nurse to nurse to Annia HOLDEN at [facility]. she said that we could set up transport and send pt brynn.Nursing Note:
[2024-03-04 18:39] VITALS: PULSE 108
[2024-03-04] MEDS: LORazepam 1 MG TAB 2 MG PO (21:21)
[2024-03-04] MEDS: Omeprazole 20 MG CAPCR PO (21:21)
--- NOTE | 2024-03-05 00:17 | W.EDPROG ---
Date of service: 03/05/24 Time of Service: 00:17 Medical Decision Making Please see previous notes for H&P and initial eval. In brief, 43yo F presenting with paranoia, voluntary, medically cleared pending placement. Accepted to [facility], plan for transfer in the morning. Overnight no acute events as 0345; [employer] downtime approaching. Will be signed out to oncoming physician, plan remains as above. Any further events will be in paper chart. Quality:SDTX Health Related Social Needs: No Data to Display Sign Out Sign Out Data: Sign Out Comment: 43-year-old female history of substance abuse seen initially yesterday subsequently discharged return paranoid with reported delusions pending voluntary placement. No active behavioral issues last shift. Last updated by Tonio Cervantes MD at 03/01/24 16:47 Sign Out Comment: PENDING VOLUNTARY IP PSYCH PLACEMENT NO SI, HI Last updated by Johnson Shook MD at 03/01/24 22:29 Sign Out Comment: Continues to remain voluntary placement for paranoia and substance abuse. No SI/HI. No issues/changes overnight. Last updated by Felix Starkey MD at 03/02/24 07:03 Sign Out Comment: Plan for inpatient psychiatric treatment and awaiting placement. Patient is here voluntarily. Last updated by Felix Hardy MD at 03/02/24 17:57 Sign Out Comment: voluntary for paranoia, no issues during shift Last updated by Mickey Mackay MD at 03/02/24 19:00 Sign Out Comment: Remains voluntary for inpatient psych admission for substance abuse and paranoia Last updated by Felix Starkey MD at 03/03/24 07:33 Sign Out Comment: SI, HI, voluntary, awaiting placement Last updated by Hermilo Harvey MD at 03/03/24 17:45 Sign Out Comment: SI, HI, voluntary, Ativan as needed added. Awaiting placement. No issues during shift. Last updated by Lizandro Zhu DO at 03/04/24 00:00 Sign Out Comment: Voluntary, medically cleared, SI/HI, pending placement. Last updated by Kathleen Sol MD at 03/04/24 07:11 Discharge Plan Disposition Patient Disposition: Psychiatric Hospital/Unit Specific Psychiatric Facility: [facility] Condition: Stable Discharge Details Clinical Impression: Paranoia Primary Care Provider: Unknown,Unknown ED Provider: Kathleen Sol Home Meds and New Rx's Prescriptions: No Action omeprazole 20 mg capsule,delayed release(DR/EC) 20 mg PO HS
[2024-03-05] MEDS: LORazepam 1 MG TAB PO ×2 (01:32→08:37)
--- NOTE | 2024-03-05 07:28 | ED.PROG_ITS ---
Date of service: 03/05/24 Time of Service: 07:29 Medical Decision Making I received signout on this medically cleared 43-year-old patient pending hospitalization at the [facility] to where she has been accepted. No active behavioral issues last shift. Will update documentation as clinically warranted and signed patient out to the evening provider. 9:20 a.m. I called the [facility] and spoke to Scott Aguilar, clinical operator command support systems. She advised me that the patient had been accepted by provider Harsha Lyons. Will send patient via Garment Manufacturing Supervisor. 12:43 PM Patient was transferred to the [facility]. Quality:SDOH Health Related Social Needs: No Data to Display Sign Out Sign Out Data: Sign Out Comment: 43-year-old female history of substance abuse seen initially yesterday subsequently discharged return paranoid with reported delusions pending voluntary placement. No active behavioral issues last shift. Last updated by Tonio Cervantes MD at 03/01/24 16:47 Sign Out Comment: Voluntary, medically cleared, SI/HI, pending placement. Possibly [facility] today (accepted, ? transport given weather) Last updated by Kathleen Sol MD at 03/05/24 03:39 Sign Out Comment: PENDING VOLUNTARY IP PSYCH PLACEMENT NO SI, HI Last updated by Johnson Shook MD at 03/01/24 22:29 Sign Out Comment: Continues to remain voluntary placement for paranoia and substance abuse. No SI/HI. No issues/changes overnight. Last updated by Felix Starkey MD at 03/02/24 07:03 Sign Out Comment: Plan for inpatient psychiatric treatment and awaiting placement. Patient is here voluntarily. Last updated by Felix Hardy MD at 03/02/24 17:57 Sign Out Comment: voluntary for paranoia, no issues during shift Last updated by Mickey Mackay MD at 03/02/24 19:00 Sign Out Comment: Remains voluntary for inpatient psych admission for substance abuse and paranoia Last updated by Felix Starkey MD at 03/03/24 07:33 Sign Out Comment: SI, HI, voluntary, awaiting placement Last updated by Hermilo Harvey MD at 03/03/24 17:45 Sign Out Comment: SI, HI, voluntary, Ativan as needed added. Awaiting placement. No issues during shift. Last updated by Lizandro Zhu DO at 03/04/24 00:00 Sign Out Comment: Voluntary, medically cleared, SI/HI, pending placement. Last updated by Kathleen Sol MD at 03/04/24 07:11 Discharge Plan Disposition Patient Disposition: Psychiatric Hospital/Unit Specific Psychiatric Facility: [facility] Condition: Stable Discharge Details Clinical Impression: Paranoia Primary Care Provider: Unknown,Unknown ED Provider: Tonio Cervantes [facility] and New Rx's Prescriptions: No Action omeprazole 20 mg capsule,delayed release(DR/EC) 20 mg PO HS Discharge Data Discharge Date/Time-TO BE ENTERED AT DEPARTURE: 03/05/24 10:24
[2024-03-05 08:37] VITALS: BP 100/75; PULSE 110; RESP 18; TEMP 36.1; O2SAT 100
== END 2024-03-05 10:24 ==
PROVIDERS: Emergency Medicine; Emergency Provider Emergency Medicine
DX: F22 Delusional disorders (principal); F14.20 Cocaine dependence, uncomplicated
CPT/HCPCS: 00123; 80307; 99285

== ENCOUNTER 2024-12-28 16:32 | Emergency (ER) | payer MEDICAID, SELFPAY ==
[2024-12-28 16:35] VITALS: BP 101/69; PULSE 111; RESP 14; TEMP 36.5; O2SAT 94
--- NOTE | 2024-12-28 17:00 | DI.RAD_ITS ---
Exam(s) XR HIP RT COMPLETE AP PELVIS EXAM: XR HIP RT COMPLETE AP PELVIS CLINICAL HISTORY: right hip pain. TECHNIQUE: 2D digital imaging was performed. Two views COMPARISON: No exams were available for comparison FINDINGS: BONES: No acute fracture is present. No bony destructive lesion is seen. Enthesophytes at the iliac wings. JOINTS: No dislocation present. The hip joint spaces are maintained. There is superior acetabular spurring, greater on the left. The SI joints and pubic symphysis appear normal. SOFT TISSUE: Normal. IMPRESSION: Mild degenerative changes. No acute abnormality. DATA REPOSITORY: RADIATION DOSE DELIVERED:
[2024-12-28] MEDS: Cyclobenzaprine 10 MG TAB PO (17:31)
[2024-12-28] MEDS: Acetaminophen 325 MG TAB 650 MG PO (17:31)
[2024-12-28] MEDS: Cyclobenzaprine 10 MG TAB, 3 TABS/BTL PO (18:36)
--- NOTE | 2024-12-28 20:20 | ED.GENADUL_ITS ---
Discharge Plan Disposition Patient Disposition: Home Condition: Stable Discharge Details Clinical Impression: Acute hip pain Primary Care Provider: Unknown,Unknown ED Provider: Susana Brown Home Meds and New Rx's Prescriptions: New cyclobenzaprine 10 mg tablet 10 mg PO TID PRNQty: 15 0RF Continued omeprazole 20 mg capsule,delayed release(DR/EC) 20 mg PO HS quetiapine [Seroquel] 100 mg tablet 100 mg PO BID Rx Instructions: 100 mg qam, 400 mg qpm quetiapine 50 mg tablet 50 mg PO DAILY PRN atomoxetine [Strattera] 80 mg capsule 80 mg PO DAILY gabapentin 300 mg capsule 300 mg PO TID trazodone 100 mg tablet 100 mg PO QHS PRN lorazepam 0.5 mg tablet 0.5 mg PO BID PRN Discharge Instructions Instructions: Hip Pain ED Additional Instructions: motrin/tylenol every 8 hours as needed for pain use flexeril as a muscle relaxant, this may make you feel drowsy light stretching and regular movememtn recheck in 3 days with persistent or worsening pain HPI General Date/Time Provider Initiated Documentation: 12/28/24 17:02 . HPI Narrative: The patient is a 44-year-old female with right hip pain. She reports abrupt turning this morning causing immediate pain radiating from her right hip to her back. No trauma or prior surgeries on her hip. She participated in yoga yesterday and questions if it contributed to her symptoms. Pain worsens with movement and position changes. No abdominal pain. Took Motrin today without relief. Related Data Home Medications ?Medication ?Instructions ?Recorded ?Confirmed omeprazole 20 mg capsule,delayed 20 mg PO HS 03/01/24 12/28/24 release atomoxetine 80 mg capsule 80 mg PO DAILY 12/28/24 12/28/24 (Strattera) cyclobenzaprine 10 mg tablet 10 mg PO TID PRN #15 tabs 12/28/24 gabapentin 300 mg capsule 300 mg PO TID 12/28/24 12/28/24 lorazepam 0.5 mg tablet 0.5 mg PO BID PRN 12/28/24 12/28/24 quetiapine 100 mg tablet (Seroquel) 100 mg PO BID 12/28/24 12/28/24 quetiapine 50 mg tablet 50 mg PO DAILY PRN 12/28/24 12/28/24 trazodone 100 mg tablet 100 mg PO QHS PRN 12/28/24 12/28/24 Previous Rx's ?Medication ?Instructions ?Recorded cyclobenzaprine 10 mg tablet 10 mg PO TID PRN #15 tabs 12/28/24 Allergies Allergy/AdvReac Type Severity Reaction Status Date / Time Penicillins Allergy Mild Skin Rash Verified 12/28/24 16:38 General Stated Complaint: Orthopedic BLANCHE: 4 Exam Narrative Exam Narrative: General Appearance: Alert and oriented. Vital signs: Within normal limits. HEENT: Within normal limits. Respiratory: Within normal limits. Cardiovascular: No abdominal tenderness, bruit, or pulsatile mass. Gastrointestinal: No abdominal tenderness, bruit, or pulsatile mass. Back, Musculoskeletal: Tenderness over right pelvic and hip region, especially with adduction and external rotation. No lumbar spine tenderness or leg radiation. Extremities: Tenderness over right pelvic and hip region, especially with adduction and external rotation. Skin: Warm and dry, no rash. Neurological: Neurovascularly intact. Other observations: No CVA tenderness. Course Vital Signs Vital signs: Vital Signs Temperature 36.5 C 12/28/24 16:35 Pulse 111 H 12/28/24 16:35 Respiratory Rate 14 12/28/24 16:35 Blood Pressure 101/69 12/28/24 16:35 Pulse Oximetry 94 12/28/24 16:35 Temperature 36.5 C 12/28/24 16:35 Temperature Source Oral 12/28/24 16:35 Pulse 111 H 12/28/24 16:35 Respiratory Rate 14 12/28/24 16:35 Blood Pressure 101/69 12/28/24 16:35 Blood Pressure Position Sitting 12/28/24 16:35 Pulse Oximetry 94 12/28/24 16:35 Oxygen Delivery Method Room Air 12/28/24 16:35 Oxygen Flow Rate 0 12/28/24 16:35 Pain Level 5 12/28/24 17:31 Medical Decision Making X-ray of right hip and pelvis shows no acute abnormality. Initial Assessment: 44-year-old female with right hip pain after abrupt turn, possibly exacerbated by yoga. Pain exacerbated with movement, position change, and tenderness to palpation over right pelvic and hip region. Neurovascularly intact, no lumbar spine tenderness or radiation down leg, no abdominal tenderness, no CVA tenderness. ED Course: - X-ray of right hip and pelvis ordered, no acute abnormality. - Flexeril helping with pain. - Reviewed return precautions. Final Assessment: Musculoskeletal pain likely due to abrupt turn and possible yoga exacerbation. X-ray shows no acute abnormality. Flexeril helping with pain. Recommended Motrin for several days and Flexeril as needed. Clinical Impression: - Musculoskeletal pain Disposition: - Discharge - Follow-Up: Recheck in 3-4 days recommended. MDM Components Evaluation: - Number of Differential Diagnoses or Management Options: Musculoskeletal pain - Amount and Complexity of Data Reviewed: X-ray of right hip and pelvis - Risk of Complication and Morbidity or Mortality: Low risk based on current assessment and treatment plan. Quality:SDOH Health Related Social Needs: Health related social needs material hardship(utilitie s) (Z59.12) Health related social needs details Declines to answer [facility] All Active Problems (Updated 12/28/24 @ 18:20 by ANGÉLICA Dumont) Acute hip pain (Acute) Social History Smoking/Tobacco Use Status: Never Smoking risk assessment performed?: Yes Alcohol Intake: current Drug use: Daily Substance use type: marijuana, crack/cocaine, amphetamines, opiates, painkillers, IV drugs and methamphetamine Details: last use this evening 02/29/24 Housing: house In current or past relationships, have you been: made to feel afraid Do you feel safe at home: No Do you feel safe in your relationship?: No Additional Social history: afraid at home
== END 2024-12-28 18:41 | disposition home or self-care (01) ==
PROVIDERS: Emergency Provider Physician Assistant
DX: M25.551 Pain in right hip (principal)
CPT/HCPCS: 99283; 73502

== ENCOUNTER 2025-01-02 07:10 | Emergency (ER) | payer MEDICAID, SELFPAY ==
[2025-01-02 07:15] VITALS: BP 117/81; PULSE 86; RESP 18; TEMP 36; O2SAT 96
--- NOTE | 2025-01-02 07:21 | ED.GENADUL_ITS ---
Discharge Plan Disposition Patient Disposition: Home Discharge Details Clinical Impression: Acute pain of right thigh Primary Care Provider: Unknown,Unknown ED Provider: Tonio Cervantes [place] Meds and New Rx's Prescriptions: Continued omeprazole 20 mg capsule,delayed release(DR/EC) 20 mg PO HS quetiapine [Seroquel] 100 mg tablet 100 mg PO BID Rx Instructions: 100 mg qam, 400 mg qpm quetiapine 50 mg tablet 50 mg PO DAILY PRN atomoxetine [Strattera] 80 mg capsule 80 mg PO DAILY gabapentin 300 mg capsule 300 mg PO TID trazodone 100 mg tablet 100 mg PO QHS PRN lorazepam 0.5 mg tablet 0.5 mg PO BID PRN cyclobenzaprine 10 mg tablet 10 mg PO TID PRNQty: 15 0RF Discharge Instructions Instructions: Leg Pain (ED) Additional Instructions: You are seen in the emergency department for your thigh pain. Your x-ray showed no sign of any fractures and ultrasound showed no sign of any blood clots in your lungs. As we discussed if you develop redness fevers or cannot move your right lower extremity please return to the emergency department. Otherwise p lease follow-up with primary care provider as needed. For your pain please take medications as follows: 1. Take acetaminophen (Tylenol), 1,000 mg (two 500 mg tabs) every 6 hours [2. Take ibuprofen (Advil), 400 mg every 6 hours.] Discharge Data Discharge Date/Time-TO BE ENTERED AT DEPARTURE: 01/02/25 10:19 HPI General Date/Time Provider Initiated Documentation: 01/02/25 07:11 . HPI Narrative: MDM This is a very well-appearing normothermic and not tachycardic 44-year-old female with right leg pain concerning for multiple etiologies. Patient no history of malignancy however will obtain radiograph to assess for pathological fracture. No rash to suggest zoster. No erythema to suggest cellulitis. No fluctuance to suggest abscess. No pain out of proportion to suggest necrotizing soft tissue infection. Right leg warm and well-perfused exam not suspicious for critical limb ischemia so I do not feel the patient requires a CT angiogram with runoff. Patient is neurologically intact so my suspicion is low for CVA so I do not feel the patient would be a candidate for lytics. No abdominal tenderness nor abdominal pain or nausea nor vomiting so my suspicion for referred pain from appendicitis is exceedingly low so I do not feel the patient requires a CT scan of her abdomen. No back pain or loss of bowel or bladder control to suggest cauda equina syndrome. No fevers nor history of IV drug use to suggest increased risk for spinal epidural abscess. No recent spinal instrumentation nor anticoagulation use to suggest increased risk for spinal epidural hematoma. Bedside ultrasound negative for DVT. Will order D-dimer in the event that radio logy formal ultrasound is not available to risk stratify for DVT. 10:15 AM Duplex study negative for DVT. X-ray negative for any fractures. The cause of the pain remains uncertain, but it may be due to a strain. She is advised to return if the pain worsens, or if she experiences redness, streaking signs of infection, or fevers. She understood her return indications and was discharged with an empiric trial of expectant outpatient management. HPI The patient presents for evaluation of right thigh pain. She reports experiencing severe pain in her right thigh, which has progressively worsened over the past few days. The pain is described as a pressure sensation that radiates upwards. It intensifies at night, to the point where she is unable to turn or walk without experiencing a burning sensation. She reports no recent falls, rashes, abdominal pain, nausea, vomiting, or fevers. She also reports no history of blood clots in her legs or lungs. Her mobility is not compromised as she can move her right foot without difficulty. She reports no unusual activities prior to the onset of the pain and no recent surgeries on her back. She also reports no loss of bowel or bladder control and no intravenous drug use. She recalls a similar episode of chest pain in the past, which was initially suspected to be a blood clot but was later diagnosed as pneumonia. She has a family history of blood clots on her father's side. She has previously sought medical attention for back pain, during which an x-ray was performed, and a muscle tear was suspected. Exam General: Well-appearing in no acute distress speaking in complete sentences. Head: Normocephalic, atraumatic. Eye: Extraocular eye movements intact. No conjunctival injection. No scleral icterus. Ear, nose, mouth, throat: Grossly normal inspection. Normal voice, handling secretions normally. Neck: Trachea midline. Cardiovascular: Well-perfused distal extremities. Respiratory: Nonlabored respiration. Clear lungs bilaterally. Gastrointestinal: Nondistended abdomen. Musculoskeletal: No edema. Moving all 4 extremities spontaneously. Right lower extremity: Right foot warm well-perfused 2+ PT and DP pulses with 5 out of 5 strength in dorsi and plantarflexion. Pelvis stable. Patient does have tenderness on the lateral side of her right thigh. Minimal erythema. No fluctuance. No knee tenderness or laxity. No hip tenderness. Skin: Normal for age and race, grossly normal temperature and turgor. No acute rash. Neurologic: Alert and appropriate, no apparent acute deficits. Psychiatric: Mood and manner are appropriate. Grooming and personal hygiene are appropriate. Related Data Home Medications ?Medication ?Instructions ?Recorded ?Confirmed omeprazole 20 mg capsule,delayed 20 mg PO HS 03/01/24 01/02/25 release atomoxetine 80 mg capsule 80 mg PO DAILY 12/28/24 01/02/25 (Strattera) cyclobenzaprine 10 mg tablet 10 mg PO TID PRN #15 tabs 12/28/24 01/02/25 gabapentin 300 mg capsule 300 mg PO TID 12/28/24 01/02/25 lorazepam 0.5 mg tablet 0.5 mg PO BID PRN 12/28/24 01/02/25 quetiapine 100 mg tablet (Seroquel) 100 mg PO BID 12/28/24 01/02/25 quetiapine 50 mg tablet 50 mg PO DAILY PRN 12/28/24 01/02/25 trazodone 100 mg tablet 100 mg PO QHS PRN 12/28/24 01/02/25 Previous Rx's ?Medication ?Instructions ?Recorded cyclobenzaprine 10 mg tablet 10 mg PO TID PRN #15 tabs 12/28/24 Allergies Allergy/AdvReac Type Severity Reaction Status Date / Time Penicillins Allergy Mild Skin Rash Verified 01/02/25 07:20 General Stated Complaint: Orthopedic BLANCHE: 3 Course Vital Signs Vital signs: Vital Signs Temperature 36.0 C L 01/02/25 07:15 Pulse 86 01/02/25 07:15 Respiratory Rate 18 01/02/25 07:15 Blood Pressure 117/81 01/02/25 07:15 Pulse Oximetry 96 01/02/25 07:15 Temperature 36.0 C L 01/02/25 07:15 Temperature Source Tympanic 01/02/25 07:15 Pulse 86 01/02/25 07:15 Respiratory Rate 18 01/02/25 07:15 Blood Pressure 117/81 01/02/25 07:15 Blood Pressure Position Sitting 01/02/25 07:15 Pulse Oximetry 96 01/02/25 07:15 Oxygen Delivery Method Room Air 01/02/25 07:15 Oxygen Flow Rate 0 01/02/25 07:15 Medical Decision Making Quality:SDOH Health Related Social Needs: Health related social needs material hardship(utilitie s) (Z59.12) Health related social needs details Declines to answer PFSH All Active Problems (Updated 01/02/25 @ 07:51 by Tonio Cervantes MD) Acute pain of right thigh (Acute) Acute hip pain (Acute) Social History Smoking/Tobacco Use Status: Never Smoking risk assessment performed?: Yes Alcohol Intake: current Drug use: Daily Substance use type: marijuana, crack/cocaine, amphetamines, opiates, painkillers, IV drugs and methamphetamine Details: last use this evening 02/29/24 Housing: house In current or past relationships, have you been: made to feel afraid Do you feel safe at home: No Do you feel safe in your relationship?: No Additional Social history: afraid at home POCUS Exam (ED) Limited Vascular Exam DATE OF EXAM: 01/02/25 TIME OF EXAM: 07:46 PROVIDER THAT PERFORMED THE STUDY: Tonio Cervantes IS THIS A REPEAT EXAM DURING THIS ENCOUNTER: No Vascular Exam: Right lower extremity REASON FOR EXAM: Concern for DVT right lower extremity Exam Complete DIFFERENTIAL DIAGNOSES: Negative right lower extremity [id number] DVT study
--- NOTE | 2025-01-02 07:30 | DI.US_ITS ---
Exam(s) US LOWER EXTREMITY VENOUS RT EXAM: US LOWER EXTREMITY VENOUS RT CLINICAL HISTORY: Right leg pain TECHNIQUE: Grayscale, color, and doppler imaging of the deep venous system of the right lower extrem ity was performed. COMPARISON: US POCUS EXAM from 01/02/2025 FINDINGS: There is no evidence of intraluminal thrombus and there is normal compression and augmentation demons trated within the common femoral vein, femoral vein, and popliteal vein. In the ipsilateral calf the interrogated veins also exhibit normal compression/ augmentation properti es. The ipsilateral saphenofemoral junction is patent. IMPRESSION: 1. No evidence of DVT in the right lower extremity. DATA REPOSITORY:
[2025-01-02] MEDS: Acetaminophen 500 MG TAB 1000 MG PO (07:43)
[2025-01-02] MEDS: Cyclobenzaprine 10 MG TAB PO (07:48)
[2025-01-02 08:04] LABS: Abs Immature Grans 0.05 10^3/uL (0.0-0.06); Absolute Basophil Count 0.03 10^3/uL (0.0-0.2); Absolute Eosinophil Count 0.15 10^3/uL (0.0-0.7); Absolute Lymphocyte Count 1.83 10^3/uL (1.2-3.4); Absolute Monocyte Count 0.54 10^3/uL (0.1-0.8); Absolute Neutrophil Count 5.67 10^3/uL (1.2-6.7); Basophils % 0.4 %; Eosinophils % 1.8 %; HGB 13.4 g/dL (11.2-15.7); Immature Grans % 0.6 %; Lymphocytes % 22.1 %; MCHC 31.9 % (32.0-36.0); MCV 88 fL (80-95); MPV 8.4 fL (8.0-11.0); Monocytes % 6.5 %; Neutrophils % 68.6 %; Platelet Count 260 10^3/uL (130-400); RBC 4.78 10^6/uL (3.93-5.22); RDW 15.4 % (11.7-14.6); WBC 8.27 10^3/uL (4.4-10.8)
[2025-01-02 08:13] LABS: Anion Gap 6.8 mmol/L (3-11); BUN 16 mg/dL (7-18); CO2 28.2 mmol/L (21.0-32.0); CREATININE 0.7 mg/dL (0.55-1.02); Calcium 8.8 mg/dL (8.5-10.1); Chloride 101 mmol/L (98-107); Estimated GFR 107.95 (mL/min/1.73m2); Glucose 89 mg/dL (74-106); Potassium 3.8 mmol/L (3.5-5.1); Sodium 136 mmol/L (136-145)
[2025-01-02 08:21] LABS: HCG Qual (Serum) Negative
[2025-01-02 08:29] LABS: D-Dimer 640 ng/mlFEU (<500)
--- NOTE | 2025-01-02 09:40 | DI.RAD_ITS ---
Exam(s) XR FEMUR RT EXAM: XR FEMUR RT CLINICAL HISTORY: Right thigh pain. TECHNIQUE: 2D digital imaging was performed. COMPARISON: No exams were available for comparison FINDINGS: Two views. There is no evidence of hip nor femur fracture. No hip joint space narrowing. No obvious degenerati ve changes nor effusion at the knee level. Bone density normal. No osseous lesions evident. IMPRESSION: No significant osseous findings in the right femur. DATA REPOSITORY: RADIATION DOSE DELIVERED:
[2025-01-02] MEDS: Ketorolac 15 MG/ML VIAL IM (09:50)
[2025-01-02 09:56] VITALS: BP 106/66; PULSE 88; O2SAT 98
--- NOTE | 2025-01-02 10:02 | DI.VRAD_ITS ---
PROCEDURE INFORMATION: Exam: XR Right Femur Exam date and time: 01/02/2025 9:34 AM Age: 44 years old Clinical indication: Pain; Thigh; Right TECHNIQUE: Imaging protocol: Radiologic exam of the right femur. Views: 2 views. COMPARISON: US LOWER EXTREMITY VENOUS RT 01/02/2025 9:20 AM FINDINGS: Bones/joints: There are mild degenerative changes in the right hip joint. No knee joint effusion. Soft tissues: Quadriceps enthesophytes. IMPRESSION: No acute fracture or dislocation. Dictated and Authenticated by: Matthew Kerr MD. Orderin Helen Elizalde MD
--- NOTE | 2025-01-02 10:03 | DI.VRAD_ITS ---
PROCEDURE INFORMATION: Exam: US Duplex Right Lower Extremity Veins, Limited Exam date and time: 01/02/2025 9:20 AM Age: 44 years old Clinical indication: Other: Pain TECHNIQUE: Imaging protocol: Real-time duplex ultrasound of the right extremity with 2-D euceda scale, color Doppler flow and spectral waveform analysis including responses to compression and other maneuvers (when performed) with image documentation. Limited exam was focused on the right lower extremity veins. COMPARISON: No relevant prior studies available. FINDINGS: Right deep veins: Unremarkable. The common femoral, femoral, proximal profunda femoral and popliteal veins are patent without thrombus. Normal Doppler waveforms. Normal compressibility and/or augmentation response. Superficial veins: Greater saphenous vein at the saphenofemoral junction is patent without thrombus. Soft tissues: Unremarkable. IMPRESSION: No evidence of DVT. Dictated and Authenticated by: Matthew Kerr MD. Orderin Helen Elizalde MD
== END 2025-01-02 10:19 | disposition home or self-care (01) ==
PROVIDERS: Emergency Provider Emergency Medicine
DX: M79.651 Pain in right thigh (principal)
CPT/HCPCS: 99283; 99284; 96372; 36415; 73552; 80048; 93971; 84703; 85025; 85379; J1885

== ENCOUNTER 2025-01-07 14:38 | Outpatient (CLI) | payer MEDICAID, SELFPAY ==
--- NOTE | 2025-01-07 12:25 | DI.RAD_ITS ---
Exam(s) XR KNEE RT 3V AP,LAT,DEYA EXAM: XR KNEE RT 3V AP,LAT,DEYA CLINICAL HISTORY: PAIN RT KNEE M25.561. TECHNIQUE: 2D digital imaging was performed of the right knee. Three views obtained. AP, lateral an d PA tunnel views were obtained. COMPARISON: CR,XR XR FEMUR RT from 01/02/2025 FINDINGS: BONES: No acute fracture is present. No bony destructive lesion is seen. JOINTS: The knee is normally aligned. No joint effusion is seen. SOFT TISSUE: Normal. IMPRESSION: Unremarkable radiographs of the right knee. DATA REPOSITORY: RADIATION DOSE DELIVERED:
== END 2025-01-07 14:58 ==
LOC: DI 14:38
PROVIDERS: Visit Provider Physician Assistant Medical
DX: M25.561 Pain in right knee (principal)
CPT/HCPCS: 73562

== ENCOUNTER 2025-01-12 10:35 | Emergency (ER) | payer MEDICAID, SELFPAY ==
[2025-01-12 10:38] VITALS: BP 127/84; PULSE 107; RESP 16; TEMP 36.9; O2SAT 98
--- NOTE | 2025-01-12 11:00 | DI.CT_ITS ---
Exam(s) CT LOWER EXTREMITY RT W EXAM: CT LOWER EXTREMITY RT W CLINICAL HISTORY: Pain from R. groin to inner knee after fall. TECHNIQUE: Imaging Protocol: Axial computed tomography images with coronal and sagittal reformatted images were created and reviewed. CONTRAST MATERIAL: Intravenous: Omnipaque 350 Contrast volume:100 ml Contrast route:IV - COMPARISON: CR XR KNEE RT 3V AP,LAT,DEYA from 01/07/2025 FINDINGS: Bones: There is no evidence of fracture or dislocation. No cellulitic or osteomyelitic changes are identified. No lytic or sclerotic lesions are identified. Joints: There is no significant joint space narrowing. No significant periarticular spurring. No k nee joint effusion. Soft Tissues: Small amount of fluid in the prepatellar bursa. Mild edema in the anterior soft tissu es of the knee. No intramuscular hematoma, abscess or other fluid collection is seen. The vessels a ppear normal. IMPRESSION: Mild prepatellar bursitis. No visible muscle hematoma. RADIATION DOSE DELIVERED: Total DLP DATA REPOSITORY: All CT scans at this facility are submitted to the National Radiology Data Registry (NRDR) Dose Index Registry (DIR) with the [employer] (ACR). RADIATION OPTIMIZATION: All CT scans at this facility use at least one of these dose optimization te chniques: automated exposure control; mA and/or kV adjustment per patient size (includes targeted exa ms where dose is matched to clinical indication); or iterative reconstruction.
--- NOTE | 2025-01-12 11:14 | ED.GENADUL_ITS ---
Discharge Plan Disposition Patient Disposition: Home Condition: Stable Discharge Details Clinical Impression: Bursitis, prepatellar, right Primary Care Provider: Unknown,Unknown ED Provider: Guadalupe Ramírez Home Meds and New Rx's Prescriptions: New ketorolac 10 mg tablet 10 mg PO Q6H PRN4 Days Qty: 16 0RF Rx Instructions: maximum total duration of 5 days from all oral, intranasal, or parenteral formulations No Action omeprazole 20 mg capsule,delayed release(DR/EC) 20 mg PO HS quetiapine [Seroquel] 100 mg tablet 100 mg PO BID Rx Instructions: 100 mg qam, 400 mg qpm quetiapine 50 mg tablet 50 mg PO DAILY PRN atomoxetine [Strattera] 80 mg capsule 80 mg PO DAILY gabapentin 300 mg capsule 300 mg PO TID trazodone 100 mg tablet 100 mg PO QHS PRN cyclobenzaprine 10 mg tablet 10 mg PO TID PRNQty: 15 0RF Discharge Instructions Instructions: Bursitis (DC) Additional Instructions: You were seen in the emergency department today for evaluation of ongoing knee and leg pain. In our department you do full physical examination performed and you did have a CT scan of your leg that did show some inflammation in front of your knee, which may be contributing to your symptoms. You had no other evidenc e of injury on your CT scan, and received medications to reduce inflammation and pain. I provided you with a prescription for Toradol, which can be taken as often as every 6 hours as needed for pain. Do not combine this medication with any other NSAIDs such as ibuprofen, Aleve, or aspirin. It is safe to take this medication with Tylenol. Please use ice and elevation, and attempt to rest as much as possible. Thank you for allowing us to be part of your care. Discharge Data Discharge Date/Time-TO BE ENTERED AT DEPARTURE: 01/12/25 13:21 HPI General Mode of arrival: ambulatory . Date/Time Provider Initiated Documentation: 01/12/25 10:40 . Limitations to Documentation: no limitations . Information obtained by: patient and old records reviewed . HPI Narrative: This is a 44-year-old female patient with a past medical history significant for substance use disorder in remission, and a recent history of right thigh and knee pain after a fall, has been evaluated at this emergency department and at the urgent care with negative x-rays and a negative duplex ultrasound. She is representing to care with ongoing pain that brings her to tears. She states that she has been trying to manage her pain at home with Tylenol and ibuprofen, last dose early this morning, as well as ice and heat. 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 She states that she feels the pain radiating down from the internal right groin area down into the medial right knee. She has not had subsequent injury, has not noted skin changes, and does not have symptoms that extend below the knee. The symptoms feel like burning, she states that she has not had weakness, numbness, or tingling that has changed. No fever or chills, nausea or vomiting, changes in bowel or bladder habits. Related Data Home Medications ?Medication ?Instructions ?Recorded ?Confirmed omeprazole 20 mg capsule,delayed 20 mg PO HS 03/01/24 01/12/25 release atomoxetine 80 mg capsule 80 mg PO DAILY 12/28/24 01/12/25 (Strattera) cyclobenzaprine 10 mg tablet 10 mg PO TID PRN #15 tabs 12/28/24 01/12/25 gabapentin 300 mg capsule 300 mg PO TID 12/28/24 01/12/25 quetiapine 100 mg tablet (Seroquel) 100 mg PO BID 12/28/24 01/12/25 quetiapine 50 mg tablet 50 mg PO DAILY PRN 12/28/24 01/12/25 trazodone 100 mg tablet 100 mg PO QHS PRN 12/28/24 01/12/25 ketorolac 10 mg tablet 10 mg PO Q6H PRN 4 days #16 tabs 01/12/25 Previous Rx's ?Medication ?Instructions ?Recorded cyclobenzaprine 10 mg tablet 10 mg PO TID PRN #15 tabs 12/28/24 ketorolac 10 mg tablet 10 mg PO Q6H PRN 4 days #16 tabs 01/12/25 Allergies Allergy/AdvReac Type Severity Reaction Status Date / Time Penicillins Allergy Mild Skin Rash Verified 01/12/25 10:40 General Stated Complaint: Orthopedic BLANCHE: 4 Exam Narrative Exam Narrative: Gen: Awake and alert, in no apparent distress HEENT: Non-icteric sclera Neck: Supple Lungs: No apparent respiratory distress, normal respiratory effort. CV: Appears well perfused, strong distal pulses Abdomen: Non-distended MSK: Moves 4 extremities without apparent limitation in ROM. Pelvis stable to AP compression, tenderness to palpation of the right groin without palpable lymphadenopathy or overlying skin changes. Patient also has tenderness to palpation along the inner thigh down to the level of the knee. Full range of motion of the knee without effusion, no fluctuance, induration, redness, warmth, or overlying skin injury appreciated. She has strong distal pulses without color or temperature change of the associated foot. No calf swelling or tenderness, no peripheral edema Skin: Visualized skin without rashes, cyanosis. Neuro: Normal Gait, no obvious focal deficits or facial asymmetry. Speaks in full, clear sentences. Psych: Appropriate for situation. Course Vital Signs Vital signs: Vital Signs Temperature 36.9 C 01/12/25 10:38 Pulse 107 H 01/12/25 10:38 Respiratory Rate 16 01/12/25 10:38 Blood Pressure 127/84 01/12/25 10:38 Pulse Oximetry 98 01/12/25 10:38 Temperature 36.9 C 01/12/25 10:38 Pulse 107 H 01/12/25 10:38 Respiratory Rate 16 01/12/25 10:38 Blood Pressure 127/84 01/12/25 10:38 Pulse Oximetry 98 01/12/25 10:38 Pain Level 10 01/12/25 10:38 Medical Decision Making This is a 44-year-old female patient presenting for evaluation of ongoing right leg pain. The patient has had an appropriate workup and had no evidence for fracture, dislocation, or DVT. My differential includes but is not limited to muscular strain, ligamentous sprain, I certainly considered hematoma and Meza Van lesion, though the patient is without associated bruising or ecchymosis. She is ambulatory, and I have a low concern for missed or occult fracture. I do not see any overlying skin changes to suggest cellulitis, herpes zoster, though certainly she could have a deep space infection that is not visible to this provider's eye. She is reassuringly hemodynamically appropriate and without fever. I see no evidence for arterial occlusion or neurovascular derangement. She does not have concerning neurodeficits to suggest spinal cord or spinal nerve root compression, cauda equina, etc. I will provide the patient with a dose of Toradol as this was highly effective in controlling her pain at her last visit. Given that this is her third presentation to care, it is reasonable to pursue advanced imaging and so a contrasted CT of the right lower extremity will be obtained. She had laboratory studies performed at one of her initial visits that were reassuring and I do no t see indication to repeat those at this time. - CT of her leg reveals evidence of prepatellar bursitis, no other abnormalities identified. Pain significantly improved with Toradol the patient was a mbulatory and able to tolerate range of motion activities. I counseled her on ongoing conservative management and did provide her with a short course of Toradol for pain management given its success in the ED environment. At this time, the patient has had a full medical evaluation and is safe for discharge to home. They are hemodynamically stable, ambulatory, and tolerating PO. They are understanding of the follow-up plan and return precautions. They left our facility without incident. Guadalupe Ramírez MD Quality:[facility] Health Related Social Needs: Health related social needs inadequate housing (Z59.1) Health related social needs details Pt homeless, at [place] but housing is stable [facility]. PFS All Active Problems (Updated 01/12/25 @ 13:15 by Guadalupe Ramírez MD) Bursitis, prepatellar, right (Acute) Acute pain of right thigh (Acute) Acute hip pain (Acute) Social History Smoking/Tobacco Use Status: Never Smoking risk assessment performed?: Yes Alcohol Intake: current Drug use: Daily Substance use type: marijuana, crack/cocaine, amphetamines, opiates, painkillers, IV drugs and methamphetamine Details: last use this evening 12/05/24 Housing: house In current or past relationships, have you been: made to feel afraid Do you feel safe at home: No Do you feel safe in your relationship?: No Additional Social history: afraid at home
[2025-01-12] MEDS: Ketorolac 15 MG/ML VIAL IVP (11:35)
[2025-01-12] MEDS: Omnipaque 350 MG/ML 100 ML BTL IJ (12:39)
[2025-01-12] MEDS: Normal Saline - Diluent 50 ML VIAL IJ (12:40)
[2025-01-12 13:16] VITALS: BP 127/82; PULSE 93; RESP 18; O2SAT 99
== END 2025-01-12 13:21 | disposition home or self-care (01) ==
PROVIDERS: Emergency Provider Emergency Medicine
DX: M70.41 Prepatellar bursitis, right knee (principal)
CPT/HCPCS: 99285; 73701; 99284; J1885; J3490

== ENCOUNTER 2025-01-19 09:14 | Emergency (ER) | payer MEDICAID, SELFPAY ==
[2025-01-19 09:21] VITALS: BP 133/84; PULSE 101; RESP 20; TEMP 36.7; O2SAT 96
[2025-01-19] MEDS: Ondansetron O.D.T. 4 MG TABEF PO (10:19)
[2025-01-19] MEDS: QUEtiapine 100 MG TAB PO ×2 (10:45→20:04)
[2025-01-19] MEDS: diazePAM 5 MG TAB PO (11:06)
[2025-01-19 11:07] LABS: Absolute Basophil Count 0.05 10^3/uL (0.0-0.2); Absolute Lymphocyte Count 2.02 10^3/uL (1.2-3.4); Absolute Monocyte Count 0.59 10^3/uL (0.1-0.8); Absolute Neutrophil Count 5.67 10^3/uL (1.2-6.7); Basophils % 0.6 %; Eosinophils % 1.2 %; HCT 43.1 % (36.0-46.0); HGB 14.1 g/dL (11.2-15.7); Immature Grans % 1.2 %; Lymphocytes % 23.7 %; MCH 28.8 pg (27.0-33.0); MCHC 32.7 % (32.0-36.0); MCV 88 fL (80-95); MPV 8.5 fL (8.0-11.0); Monocytes % 6.9 %; Neutrophils % 66.4 %; Platelet Count 325 10^3/uL (130-400); RDW 15.3 % (11.7-14.6); RDW-SD 48.7 fL; WBC 8.53 10^3/uL (4.4-10.8)
--- NOTE | 2025-01-19 11:12 | NUR.NOTE ---
Nursing Note: Pt took her Strattera today before coming in. This medication is non formulary and orders received to medicate with patients own medications. She did not bring this medication with her, states it's at her hotel and has no one that can bring it. She also states that she takes it for her ADHD and she does not notice any difference with this medication and does not need it while she's here. ANGÉLICA Meza updated and order will be DC'd
[2025-01-19 11:36] LABS: *AMPHETAMINES SCREEN URINE Negative (Negative); *BARBITURATES SCREEN URINE Negative (Negative); *BENZODIAZEPINES SCREEN URINE Negative (Negative); Cannabinoids THC Negative (Negative); Cocaine Screen,Urine Negative (Negative); METHADONE URINE SCREEN Negative (Negative); OPIATES URINE SCREEN Negative (Negative)
[2025-01-19 11:40] LABS: ALT 31 U/L (14-59); AST 23 U/L (15-37); Albumin 4.5 g/dL (3.4-5.0); Alkaline Phosphatase 100 U/L (46-116); Anion Gap 10.2 mmol/L (3-11); BUN 12 mg/dL (7-18); Bilirubin, Total 0.3 mg/dL (0.2-1.0); CO2 25.8 mmol/L (21.0-32.0); CREATININE 0.7 mg/dL (0.55-1.02); Calcium 9.9 mg/dL (8.5-10.1); Chloride 102 mmol/L (98-107); Estimated GFR 107.95 (mL/min/1.73m2); Glucose 98 mg/dL (74-106); Potassium 3.9 mmol/L (3.5-5.1); Sodium 138 mmol/L (136-145); Total Protein 8.6 g/dL (6.4-8.2)
[2025-01-19 11:41] LABS: Tricyclic Antidepressants Negative (Negative)
--- NOTE | 2025-01-19 13:15 | CMSP_ITS ---
Date of service: 01/19/25 Time of Service: 13:15 Care Management Safety Plan Status Status: Voluntary Reason for Wait Reason for Wait: Assessment/Screening (telepsych being ordered for med adjustments. Please see Care management progress note) Safety Plan Safety Plan: VOLUNTARY FOR INPATIENT PSYCHIATRIC STABILIZATION.? Patient is appropriate in all interactions since arriving at [facility]; Pt has demonstrated appropriate coping and communication skills, has articulated his or her needs and concerns and is fully engaged during staff interactions. Safety plan has been established with patient, and care team, to adhere to patient goals, identify restrictions based on behavioral status, address nutrition, and determine allowed personal belongings, tools for hygiene and personal care. Determine level of activity including ambulation, level of supervision, visitors, and determine privileges based on behaviors and level of engagement by pt. VOLUNTARY SAFETY PLAN: 1. Will remain on suicide precautions, in paper clothes 2. Will remain in Zone B under direct supervision of one-on-one staff at all times provided by [employer]; MARIA C, [employer] breakdown worker. 3. May have paper cups, plates, finger foods as well as a cardboard spoon with which to eat meals. 4. Follow [facility] Management of the Admitted Behavioral Health Patient policy. 5. Shower available in Zone B without restriction. 6. Personal belongings-soft items permitted at RN discretion. 7. Visitors-none at this time. 8. Activities: soft cart items, hospital tablets (Netflix/Carol+/music) approved per RN discretion. 9.? Bathroom available in Zone B without restriction. 10. Phone: limited to [facility] cordless phone at RN discretion. Due to VOLUNTARY status, if patient wishes to leave [facility], staff will contact [facility] Crisis Screener ([phone]) and [employer] ([phone]) as soon as possible. In the event of elopement, notify [place] [employer] ([phone]). Patient is currently voluntarily at [facility] and seeking inpatient admission when a bed becomes available. [facility] Frontline Holistic Pulser will continue seeking placement. Please contact the [employer] Spike Assembler ([phone]) and [facility] Holistic Pulser ([phone]) for any needed changes in the Safety Plan. Safety plan has been provided to interdepartmental care team.
--- NOTE | 2025-01-19 13:31 | CMPROGNOTE_ITS ---
Date of service: 01/19/25 Time of Service: 13:31 Care Management Progress Note Progress Note Text Progress Note Text: Jennyfer brought herself to the ED today because she ran out of meds and was having some vague HI and SI with no plan. She has been out of her meds for 5days. She stated that she doesn't feel her meds were working very well, anyway. Jennyfer was recently discharged from [facility] to the Care Bed. She is now homeless, living in the [facility]. CM huddled this morning with [facility] worker, [facility] B RN, and with the provider. A telepsych referral will be ordered and referrals will be sent to inpatient facilities. The tentative plan is that Jennyfer will stay in [facility], and see if being back on her meds and/or any adjustments were made, make a difference in how she is feeling. She may discharge on a safety plan if it is deemed appropriate. Otherwise, she will await an inpatient bed on a voluntary basis. [facility] asked CM to make a PCP referral for Jennyfer. Jennyfer was referred to [facility] on 12/28. They have not been able to reach her, but she will still be accepted as a patient if she reaches out. CM discussed this with Jennyfer, gave her the number, and encouraged her to call. MH Services (Omit if N/A) Current MH Services: [facility] Reason for Wait: Assessment/Screening (telepsych. see body of note) Social Determinants of Health Screening Will the Patient Participate in the Screening?: Unable to obtain
--- NOTE | 2025-01-19 13:41 | PDOC.MHCN_ITS ---
Date of service: 01/19/25 Time of Service: 13:42 PHQ-9 Over the last 2 weeks, how often have you been bothered by any of the following problems? 1. Little interest or pleasure in doing things: more than half the days 2. Feeling down, depressed, or hopeless: nearly every day 3. Trouble falling or staying asleep, or sleeping too much: nearly every day 4. Feeling tired or having little energy: not at all 5. Poor appetite or overeating: nearly every day 6. Feeling bad about yourself - or that you are a failure or have let yourself and your family down: nearly every day 7. Trouble concentrating on things, such as reading the newspaper or watching television: more than half the days 8. Moving or speaking so slowly that other people could have noticed? - Or the opposite - being so fidgety or restless that you have been moving around a lot more than usual: more than half the days 9. Thoughts that you would be better off or of hurting yourself in some way: more than half the days Total score: 20 If you checked off any problems, how difficult have these problems made it for you to do your work, take care of things at home, or get along with other people?: extremely difficult Source: Developed by Drs. Felix Phelps, Graciela Shane, Anson Green and colleagues, with an educational dajuan from [employer]. Suicide Severity Rate CSSRS Have you wished you were or wished you could go to sleep and not wake up?: Yes Have you actually had any thoughts of killing yourself?: No CSSRS3 Have you ever done anything, started to do anything or prepared to do anything to end your life?: No Screening Score Total Score: 2 Screening: Positive Mental Health Emergency Note Release [facility] release signed:: Yes Reason for Visit The client is known to [facility] and receives supports through the [facility] program. She was supposed to have therapy today however, no showed. She was last seen on 01.13 by their caser. The client has been hospitalized before and was released by about 3 weeks ago. [facility] requested an evaluation of the client following some vague SI and HI. They also reported that she has not been on any medications for a week per her report and even prior when she was taking it she did not feel it was helping. In the last 2 weeks has the pt presented for ES prior to today?: Unknown Client Information Client is: Adult Outpatient Well Housed: No,status: Not homeless, Unstable housing Non Suicidal Self Injury Current: No History: No Safety Risk/Harm to Self or Others Current Ideation to Harm Self or Others: Yes to self. Intent: no, has no intent. Plan: no.does not have a plan. History of suicide attempt: No history of suicide attempt reported and to others. Intent: No Plan: no, does not have a plan. History of becoming violent with another person(any age): no history of violence with others. Risk: Does risk to harm exist?: No Risk: Moderate Risk Duty to warn indicated: No Asssessment/Mental Status Appearance: Disheveled Attitude: Cooperative Behavior: Unremarkable Speech: Normal Affect: Cogruent with mood Mood: Stressed, Depressed and Anxious Thought process: Goal directed Hallucinations: No Delusions: No Attention: Unremarkable Perception: Not impaired Orientation: Fully orientated Memory: Intact Insight: Fair Judgement: Fair Neurovegetative Symptoms Sleep: Decrease Appetitie: Decrease Interests: Decrease Energy: Decrease Libido: Not applicable Substance Use: Do you use nicotine?: No Have you used substances in the last 7 days?: No Additional Issues: Assaultive/Threatening Behavior: No Medical Concerns: No Client engaged in active self harm w/weapon: No Threatening to run away: No Child reported abuse/neglect: No Voluntarily presenting for services: Yes Domestic violence is a concern: No Extreme Psychosis or extreme behavior is present: No Impression The client is a 44-year-old, single, female who lives at the [facility] on a housing voucher. She uses She/Her pronouns. All underrepresented categories were honored during this assessment. The client presents lying in bed watching TV. She sits up to engage in the assessment. The client is cooperative and friendly. She makes good eye contact. The client is future oriented. THe client endorsed a shadow like figure that was a hallucination last night in the corner of her room and as a result developed some sleep paralisis. The client reported that she wants to get help so that she can get her life back with housing, employment as well as stability in her mental and physical health. She noted that she called her prescriber and caser who are no in today for her medications however, even when she did take them she did not feel they were working properly. The client is feeling she needs a higher level of care at this time to stabilize. Plan/Disposition Recommended Disposition: Hospitalization facilities contacted. Plan: This clinician requested a telepsych for the client to the provider. This clinician will send out referrals and if the client is feeling safer in the am we could consider a safety plan. Person reported agreement to plan: Yes Reports/communication Outcome discussed with: ED/Personnel
[2025-01-19] MEDS: Gabapentin 300 MG CAP PO (15:04)
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
[2025-01-19] MEDS: traZODone 100 MG TAB PO (20:05)
[2025-01-20] MEDS: Ibuprofen 600 MG TAB PO (06:29)
--- NOTE | 2025-01-20 06:42 | ED.PROG_ITS ---
Date of service: 01/20/25 Time of Service: 06:42 Medical Decision Making Patient had presented with homicidal ideation and agitation. She has been seen by [facility] and had telepsych consult. Medication recommendations per psychiatry. Patient to be reevaluated by [facility] this morning. She remains voluntary with no issues on the overnight shift. Quality:[facility] Health Related Social Needs: Health related social needs inadequate housing (Z59.1) Health related social needs details Pt homeless, at [facility] but housing is stable [facility]. Discharge Plan Discharge Details Chief Complaint: PsychEval Primary Care Provider: Unknown,Unknown ED [facility] Prescriptions: No Action omeprazole 20 mg capsule,delayed release(DR/EC) 20 mg PO HS quetiapine [Seroquel] 100 mg tablet 100 mg PO BID Rx Instructions: 100 mg qam, 400 mg qpm quetiapine 50 mg tablet 50 mg PO DAILY PRN atomoxetine [Strattera] 80 mg capsule 80 mg PO DAILY gabapentin 300 mg capsule 300 mg PO TID trazodone 100 mg tablet 100 mg PO QHS PRN cyclobenzaprine 10 mg tablet 10 mg PO TID PRNQty: 15 0RF clonidine HCl 0.1 mg tablet 0.1 mg PO .q8hr PRN Patient Comments: TAKE ONE (1) TABLET BY MOUTH EVERY 8 HOURS, NEEDED
--- NOTE | 2025-01-20 07:17 | ED.PROG_ITS ---
Date of service: 01/20/25 Time of Service: 07:18 Medical Decision Making Patient seeking voluntary placement currently for decompensated schizoaffective disorder and also HI. No new acute complaints. Will continue to monitor until safe disposition found. Quality:SDOH Health Related Social Needs: Health related social needs inadequate housing (Z59.1) Health related social needs details Pt homeless, at [facility] but housing is stable [facility]. Discharge Plan Discharge Details Chief Complaint: PsychEval Clinical Impression: Schizoaffective disorder Primary Care Provider: Unknown,Unknown ED Provider: Mickey Mackay Cody Meds and New Rx's Prescriptions: No Action omeprazole 20 mg capsule,delayed release(DR/EC) 20 mg PO HS quetiapine [Seroquel] 100 mg tablet 100 mg PO BID Rx Instructions: 100 mg qam, 400 mg qpm quetiapine 50 mg tablet 50 mg PO DAILY PRN atomoxetine [Strattera] 80 mg capsule 80 mg PO DAILY gabapentin 300 mg capsule 300 mg PO TID trazodone 100 mg tablet 100 mg PO QHS PRN cyclobenzaprine 10 mg tablet 10 mg PO TID PRNQty: 15 0RF clonidine HCl 0.1 mg tablet 0.1 mg PO .q8hr PRN Patient Comments: TAKE ONE (1) TABLET BY MOUTH EVERY 8 HOURS, NEEDED
[2025-01-20] MEDS: QUEtiapine 100 MG TAB PO ×2 (08:06→14:05)
[2025-01-20] MEDS: Acetaminophen 500 MG TAB 1000 MG PO ×2 (08:40→16:41)
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
[2025-01-20] MEDS: QUEtiapine 50 MG TAB PO (13:42)
[2025-01-20] MEDS: Omeprazole 20 MG CAPCR PO (14:05)
--- NOTE | 2025-01-20 15:54 | CMSP_ITS ---
Date of service: 01/20/25 Time of Service: 15:54 Care Management Safety Plan Status Status: Voluntary Reason for Wait Reason for Wait: Inpatient Admission Safety Plan Safety Plan: VOLUNTARY FOR INPATIENT PSYCHIATRIC STABILIZATION.? Patient is appropriate in all interactions since arriving at [facility]; Pt has demonstrated appropriate coping and communication skills, has articulated his or her needs and concerns and is fully engaged during staff interactions. Safety plan has been established with patient, and care team, to adhere to patient goals, identify restrictions based on behavioral status, address nutrition, and determine allowed personal belongings, tools for hygiene and personal care. Determine level of activity including ambulation, level of superv ision, visitors, and determine privileges based on behaviors and level of engagement by pt. VOLUNTARY SAFETY PLAN: 1. Will remain on suicide precautions, in paper clothes 2. Will remain in Zone B under direct supervision of one-on-one staff at all times provided by [employer]; MARIA C, FOREIGN EXCHANGE CLERK cardiac monitor technician. 3. May have paper cups, plates, finger foods as well as a cardboard spoon with which to eat meals. 4. Follow [facility] Management of the Admitted Behavioral Health Patient policy. 5. Shower available in Zone B without restriction. 6. Personal belongings-soft items permitted at RN discretion. 7. Visitors- supportive visitors, at RN discretion. 8. Activities: soft cart items, hospital tablets (Netflix/[place]+/music) approved per RN discretion. 9.? Bathroom available in Zone B without restriction. 10. Phone: limited to [facility] cordless phone at RN discretion. Due to VOLUNTARY status, if patient wishes to leave [facility], staff will contact [facility] Crisis Screener ([phone]) and Command And Control ([phone]) as soon as possible. In the event of elopement, notify [facility] Police ([phone]). Patient is currently voluntarily at [facility] and seeking inpatient admission when a bed becomes available. [facility] Frontline Vice President Quality Assurance will continue seeking placement. Please contact the Command And Control ([phone]) and [facility] Vice President Quality Assurance ([phone]) for any needed changes in the Safety Plan. Safety plan has been provided to interdepartmental care team.
--- NOTE | 2025-01-20 15:54 | PDOC.CMSAFE ---
Date of service: 01/20/25 Time of Service: 15:54 Care Management Safety Plan Status Status: Voluntary Reason for Wait Reason for Wait: Inpatient Admission Safety Plan Safety Plan: VOLUNTARY FOR INPATIENT PSYCHIATRIC STABILIZATION.? Patient is appropriate in all interactions since arriving at [facility]; Pt has demonstrated appropriate coping and communication skills, has articulated his or her needs and concerns and is fully engaged during staff interactions. Safety plan has been established with patient, and care team, to adhere to patient goals, identify restrictions based on behavioral status, address nutrition, and determine allowed personal belongings, tools for hygiene and personal care. Determine level of activity including ambulation, level of supervision, visitors, and determine privileges based on behaviors and level of engagement by pt. VOLUNTARY SAFETY PLAN: 1. Will remain on suicide precautions, in paper clothes 2. Will remain in Zone B under direct supervision of one-on-one staff at all times provided by [employer]; MARIA C, STEEL FIXER special services director. 3. May have paper cups, plates, finger foods as well as a cardboard spoon with which to eat meals. 4. Follow [facility] Management of the Admitted Behavioral Health Patient policy. 5. Shower available in Zone B without restriction. 6. Personal belongings-soft items permitted at RN discretion. 7. Visitors- supportive visitors, at RN discretion. 8. Activities: soft cart items, hospital tablets (Netflix/[place]+/music) approved per RN discretion. 9.? Bathroom available in Zone B without restriction. 10. Phone: limited to [facility] cordless phone at RN discretion. Due to VOLUNTARY status, if patient wishes to leave [facility], staff will contact [facility] Crisis Screener ([phone]) and Manager Performance ([phone]) as soon as possible. In the event of elopement, notify [facility] Police ([phone]). Patient is currently voluntarily at [facility] and seeking inpatient admission when a bed becomes available. [facility] Frontline Nailhead Setter will continue seeking placement. Please contact the Manager Performance ([phone]) and [facility] Nailhead Setter ([phone]) for any needed changes in the Safety Plan. Safety plan has been provided to interdepartmental care team.
--- NOTE | 2025-01-20 15:57 | CMPROGNOTE_ITS ---
Date of service: 01/20/25 Time of Service: 15:57 Care Management Progress Note Progress Note Text Progress Note Text: CM huddled with [facility] and [facility] staff regarding Jennyfer's plan of care. Per RN, Jennyfer has been appropriate and cooperative today, although she has been reporting anxiety. RN stated that she was given her scheduled medication, which was helpful. Per [facility], Jennyfer is denying SI/HI currently, but stated that she would feel HI if she was to leave here at this time. Jennyfer is advocating for inpatient psychiatric treatment for medication management, as she recently stopped taking her medications. Per [facility], she has a patient case coordinator and is connected to the recovery center as well. Jennyfer is currently voluntary, seeking inpatient psychiatric treatment. Referrals were sent by [facility]; safety plan in place. CM will continue to follow. Social Determinants of Health Screening Will the Patient Participate in the Screening?: Unable to obtain
--- NOTE | 2025-01-20 15:57 | PDOC.CMPRO ---
Date of service: 01/20/25 Time of Service: 15:57 Care Management Progress Note Progress Note Text Progress Note Text: CM huddled with [facility] and [facility] staff regarding Jennyfer's plan of care. Per RN, Jennyfer has been appropriate and cooperative today, although she has been reporting anxiety. RN stated that she was given her scheduled medication, which was helpful. Per [facility], Jennyfer is denying SI/HI currently, but stated that she would feel HI if she was to leave here at this time. Jennyfer is advocating for inpatient psychiatric treatment for medication management, as she recently stopped taking her medications. Per [facility], she has a supportive employment case manager and is connected to the recovery center as well. Jennyfer is currently voluntary, seeking inpatient psychiatric treatment. Referrals were sent by [facility]; safety plan in place. CM will continue to follow. Social Determinants of Health Screening Will the Patient Participate in the Screening?: Unable to obtain
[2025-01-20] MEDS: Ketorolac 10 MG TAB PO (16:41)
[2025-01-20 17:15] VITALS: BP 117/82; PULSE 91; RESP 19; TEMP 37.3; O2SAT 97
--- NOTE | 2025-01-20 17:17 | NUR.NOTE ---
Nurse to nurse done with Hayde from [facility]. Asked them to inquire if [facility] would be able to transport. Hayde stated she would research that.
--- NOTE | 2025-01-20 18:46 | NUR.NOTE ---
Patient requesting something for anxiety for the ride to [facility]. Inquiring with the MD.
[2025-01-20] MEDS: hydrALAZINE 25 MG TAB PO (19:22)
== END 2025-01-20 19:49 ==
PROVIDERS: Physician Assistant; Emergency Provider Emergency Medicine
DX: R45.850 Homicidal ideations (principal); F25.8 Other schizoaffective disorders; T50.996A Underdosing of other drugs, medicaments and biological substances, initial encounter; M25.561 Pain in right knee; Z91.148 Patient's other noncompliance with medication regimen for other reason; Z59.00 Homelessness unspecified
CPT/HCPCS: 00123; 36415; 80053; 80307; 81025; 96127; 99285; 85025

== ENCOUNTER 2025-02-07 20:07 | Emergency (ER) | payer MEDICAID, SELFPAY ==
[2025-02-07 20:07] VITALS: BP 157/94; PULSE 133; RESP 18; TEMP 37.1; O2SAT 98
--- NOTE | 2025-02-07 20:15 | RT.EKG_ITS ---
APPROVED REPORT Exam: Resting ECG Reason for Exam: tachycardia Patient Location: E HR:118 bpm ECG Measurements Heart Rate 118 AXIS MI 162 P 50 QRSd 78 QRS 3 QT 329 T 43 QTc 460 Conclusion Sinus tachycardia, rate 118 No interval abnormalities No STEMI No priors available for comparison
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
[2025-02-07] MEDS: OLANZapine 10 MG TAB (20:30)
--- NOTE | 2025-02-07 20:50 | NUR.NOTE ---
Addendum entered by America Yeh 02/07/25 21:14: Patient is paranoid about people around and the doors opening and closing. Original Note: Nurse asked me to hold off doing EKG. Patient is very restless and anxious wandering the department. She is not comfortable sitting inside room 5 where she was assigned to me.
[2025-02-07] MEDS: LORazepam 1 MG TAB 2 MG PO (21:00)
[2025-02-07 21:27] LABS: Abs Immature Grans 0.04 10^3/uL (0.0-0.06); Absolute Basophil Count 0.02 10^3/uL (0.0-0.2); Absolute Lymphocyte Count 1.29 10^3/uL (1.2-3.4); Absolute Neutrophil Count 7.52 10^3/uL (1.2-6.7); Basophils % 0.2 %; HCT 36.6 % (36.0-46.0); HGB 11.8 g/dL (11.2-15.7); Immature Grans % 0.4 %; Lymphocytes % 13.3 %; MCH 28.4 pg (27.0-33.0); MCHC 32.2 % (32.0-36.0); MCV 88 fL (80-95); MPV 8.7 fL (8.0-11.0); Monocytes % 7.2 %; Neutrophils % 77.9 %; Platelet Count 293 10^3/uL (130-400); RBC 4.16 10^6/uL (3.93-5.22); RDW 14.7 % (11.7-14.6); RDW-SD 47.5 fL; WBC 9.67 10^3/uL (4.4-10.8)
[2025-02-07 21:42] LABS: ALT 21 U/L (14-59); AST 19 U/L (15-37); Albumin 4.1 g/dL (3.4-5.0); Alkaline Phosphatase 95 U/L (46-116); Anion Gap 10.1 mmol/L (3-11); BUN 14 mg/dL (7-18); Bilirubin, Total 0.3 mg/dL (0.2-1.0); CO2 25.9 mmol/L (21.0-32.0); CREATININE 1.1 mg/dL (0.55-1.02); Calcium 9.1 mg/dL (8.5-10.1); Chloride 103 mmol/L (98-107); Estimated GFR 62.76 (mL/min/1.73m2); Glucose 122 mg/dL (74-106); Magnesium 1.8 mg/dL (1.8-2.4); Potassium 3.7 mmol/L (3.5-5.1); Sodium 139 mmol/L (136-145); Total Protein 7.9 g/dL (6.4-8.2)
[2025-02-07 21:50] LABS: ETHANOL BLOOD < 3.0 mg/dL (<10)
--- NOTE | 2025-02-07 22:57 | PDOC.MHCN_ITS ---
Date of service: 02/07/25 Time of Service: 22:45 Mental Health Emergency Note Release [facility] release signed:: Yes Reason for Visit Jennyfer is a known client to [facility], this publications writer is unsure if she has had prior encounters with Jennyfer. Jennyfer was recently at the [facility] Carebed in [facility]. Jennyfer presented to the hospital today via ambulance after using substances and was presenting with paranoia and hallucinations. In the last 2 weeks has the pt presented for ES prior to today?: Unknown Client Information Client is: Adult Outpatient Well Housed: Yes Non Suicidal Self Injury Current: No History: No Safety Risk/Harm to Self or Others Current Ideation to Harm Self or Others: Yes to self. (Client reports she is endorsing SI several times a day and previously attempted to overdose. Client could not disclose current plan or intent.) Intent: no, has no intent. Plan: no.does not have a plan. History of suicide attempt: yes,history of suicide attempt reported. Details of previous suicide attempt: Client attempted to end her life via overdose. Risk: Does risk to harm exist?: yes. Access to means: No. Risk: Low Risk Duty to warn indicated: No Asssessment/Mental Status Appearance: Disheveled Attitude: Guarded Behavior: Gait disturbances Speech: Slow, Incoherent and Slurred Affect: Cogruent with mood Mood: Stressed and Anxious Thought process: Flight of ideas Hallucinations: yes, Visual and Auditory Delusions: yes, Persectory/Paranoid Attention: Wandering, Inattention and Poor concentration Orientation: Disoriented in (Not able to answer ) Time, Place, Person and Situation Insight: Poor Judgement: Poor Neurovegetative Symptoms Sleep: No change Appetitie: No change Interests: No change Energy: No change Libido: Not applicable Substance Use: Do you use nicotine?: Yes Have you used substances in the last 7 days?: yes, Per report of the doctor, Jennyfer smoked marijuana and crack earlier today Additional Issues: Assaultive/Threatening Behavior: No Medical Concerns: No Client engaged in active self harm w/weapon: No Threatening to run away: No Child reported abuse/neglect: No Voluntarily presenting for services: Yes Domestic violence is a concern: No Extreme Psychosis or extreme behavior is present: Yes Impression Jennyfer is a [age] year old female. Jennyfer's current living arrangement or employment is unknown to this publications writer as Jennyfer was not able to disclose. Jennyfer presents to this publications writer sitting in her hospital bed in blue paper scrubs. Jennyfer reports she came to [facility] via ambulance due to everyone thinking she is crazy. Jennyfer reports she endorses SI multiple times a day and has previously attempted to end her life via overdose. Jennyfer was unable to answer if she endorsed HI or NSSI at this time. Jennyfer was not able to answer any screening tools asked and was not able to hold a conversation. Jennyfer got up in the middle of the assessment to reposition herself and the tablet and stated I want you to see them but she was in the hospital room herself. Jennyfer presented to [facility] and was hallucinating and responding to internal stimuli per doctor and nurse report. Jennyfer reports she thinks inpatient treatment would be helpful. Jennyfer is willing to stay at [facility] overnight and be reassessed until placement is secured. Plan/Disposition Recommended Disposition: Hospitalization (Referrals were sent 02/07 ) facilities contacted. Plan: Jennyfer will remain at [facility] until treatment is secured. Jennyfer will be reassessed daily by [facility] while she waits. Person reported agreement to plan: Yes Reports/communication Outcome discussed with: ED/Personnel
[2025-02-07 23:00] VITALS: BP 117/83; PULSE 116; RESP 16; TEMP 36.8; O2SAT 95
[2025-02-07] MEDS: QUEtiapine 50 MG TAB PO (23:19)
--- NOTE | 2025-02-08 00:36 | W.EDPROG ---
Date of service: 02/07/25 Time of Service: 22:30 Medical Decision Making This patient was signed out to me. Please see previous notes for H&P and initial eval. In brief, 44yo F with hx pyschosis presenting with psychosis in the setting of not taking her medications; medically cleared, home meds ordered. Signed out awaiting [facility] evaluation. [facility] recommends voluntary inpatient placement. No further events overnight. Will be signed out to oncoming physican, plan remains as above. Quality:SDOH Health Related Social Needs: Health related social needs inadequate housing Health related social needs details Pt homeless, at [place] but housing is stable [facility]. Discharge Plan Discharge Details Chief Complaint: PsychEval Clinical Impression: Paranoid delusion, Schizoaffective disorder, Cocaine use disorder Primary Care Provider: Unknown,Unknown ED Provider: Kathleen Sol Home Meds and New Rx's Prescriptions: No Action omeprazole 20 mg capsule,delayed release(DR/EC) 20 mg PO HS quetiapine [Seroquel] 100 mg tablet 200 mg PO .am Rx Instructions: 100 mg qam, 400 mg qpm quetiapine 50 mg tablet 50 mg PO DAILY PRN gabapentin 300 mg capsule 300 mg PO TID trazodone 100 mg tablet 100 mg PO QHS PRN cyclobenzaprine 10 mg tablet 10 mg PO TID PRNQty: 15 0RF clonidine HCl 0.1 mg tablet 0.1 mg PO .q8hr PRN Patient Comments: TAKE ONE (1) TABLET BY MOUTH EVERY 8 HOURS, NEEDED
--- NOTE | 2025-02-08 07:02 | ED.PROG1_ITS ---
Date of service: 02/08/25 Time of Service: 07:02 Psychiatric Border Handoff Update Brief Story: 44yo F with schizoaffective, not taking her medications, presenting with paranoia/hallucinations/SI. [facility] reccs in-patient. Pt voluntary, likely meets EE criteria should she wish to leave. Status: voluntary Able to leave: would need physician/BOLA and crisis evaluation prior to leaving Behavioral Concerns: None Potential Disposition: Pending placement Medical Concerns: None Mediation Reconciliation performed: Yes Code Status ordered: Yes Diet ordered: Yes Future to do Items: Follow-up recommendations from [facility] Discharge Plan Discharge Details Chief Complaint: PsychEval Clinical Impression: Paranoid delusion, Schizoaffective disorder, Cocaine use disorder Primary Care Provider: Unknown,Unknown ED Provider: Tonio Cervantes [facility] and New Rx's Prescriptions: No Action omeprazole 20 mg capsule,delayed release(DR/EC) 20 mg PO HS quetiapine [Seroquel] 100 mg tablet 200 mg PO .am Rx Instructions: 100 mg qam, 400 mg qpm quetiapine 50 mg tablet 50 mg PO DAILY PRN gabapentin 300 mg capsule 300 mg PO TID trazodone 100 mg tablet 100 mg PO QHS PRN cyclobenzaprine 10 mg tablet 10 mg PO TID PRNQty: 15 0RF clonidine HCl 0.1 mg tablet 0.1 mg PO .q8hr PRN Patient Comments: TAKE ONE (1) TABLET BY MOUTH EVERY 8 HOURS, NEEDED
[2025-02-08] MEDS: Omeprazole 20 MG CAPCR PO (07:34)
[2025-02-08 08:10] VITALS: BP 108/76; PULSE 99; RESP 16; TEMP 36.5; O2SAT 98
[2025-02-08] MEDS: QUEtiapine 100 MG TAB PO (08:25)
[2025-02-08 08:47] LABS: Bilirubin Negative (Negative); Blood Trace-lysed (Negative); Clarity Sl Cloudy (Clear); Glucose Negative (Negative); Ketones Negative (Negative); Leukocyte Esterase Negative (Negative); Nitrite Negative (Negative); Specific Gravity 1.025 (1.005-1.025); Urobilinogen 0.2 mg/dL (Up to 0.2); pH 6.5 (5-8)
[2025-02-08 08:56] LABS: *AMPHETAMINES SCREEN URINE Negative (Negative); *BARBITURATES SCREEN URINE Negative (Negative); *BENZODIAZEPINES SCREEN URINE Negative (Negative); Bacteria Rare HPF (Negative); C & S Indicated? No; Cannabinoids THC Negative (Negative); Casts Negative LPF (Negative); Cocaine Screen,Urine Negative (Negative); Crystals Negative HPF (Negative); Epithelial Cells Moderate HPF (Negative); METHADONE URINE SCREEN Negative (Negative); Mucus Negative (Negative); OPIATES URINE SCREEN Negative (Negative); RBC 0-2 HPF (0-2); WBC Negative HPF (0-5)
[2025-02-08 09:03] LABS: Tricyclic Antidepressants Positive (Negative)
--- NOTE | 2025-02-08 11:18 | TELEP.MEDREC ---
Date of service: 02/08/25 Time of Service: 11:18 Telepharmacy Home Med Rec Allergies Allergies: Penicillins Allergy (Mild, Verified 02/07/25 20:19) Skin Rash Interview Person Interviewed: Patient Jack pharmacist Quality Quality of Interview/Accuracy of Medication List: Good Sources Sources used to compile medication list: Retail Pharmacy Changes made to Home Medication List: ADDITIONS: Albuterol MDI Bupropion Lorazepam Tramadol DELETIONS: Cyclobenzaprine Trazodone CHANGES: Gabapentin to 400mg TID PRN Clonidine to 0.1mg HS PRN Quetiapine to IR 400mg BID and ER 400mg HS Additional Notes Additional Notes: Pt states Quetiapine is 100mg in AM and 400mg at HS - Jack has her taking Quetiapine 400mg IR BID and Quetiapine 400mg ER at HS. No recent Rx for Cyclobenzaprine. Gabapentin increased to 400mg up to TID PRN. Pt does not remember last time meds were taken at home. Recommended Changes Recommended Changes(reason for recommendation): None Attestation: The home medication list is now updated to the best of my knowledge and is ready to be reconciled by the provider. Please contact the TelePharmacy Medication Reconciliation Pharmacist at for any questions.
--- NOTE | 2025-02-08 11:28 | TELEP.MEDREC ---
Date of service: 02/08/25 Time of Service: 11:30 Telepharmacy Home Med Rec Allergies Allergies: Penicillins Allergy (Mild, Verified 02/07/25 20:19) Skin Rash Recommended Changes Attestation: The home medication list is now updated to the best of my knowledge and is ready to be reconciled by the provider. Please contact the TelePharmacy Medication Reconciliation Pharmacist at for any questions.
[2025-02-08] MEDS: QUEtiapine 50 MG TAB PO (11:44)
--- NOTE | 2025-02-08 11:53 | ED.PROG_ITS ---
Date of service: 02/08/25 Time of Service: 11:54 Medical Decision Making I participated in the SICU help with this patient. She has been cooperative. She remains voluntary. She was reportedly unhoused. She was recently at the [facility] and subsequently went to the care bed afterward referrals will be placed later this morning for voluntary placement. Will update documentation and signed patient out to the oncoming evening provider. 2:45 PM I was asked to prescribe patient's home lorazepam which I ordered. 3:30 PM No active issues on my shift. I signed patient out to Dr. Severino. Quality:SDOH Health Related Social Needs: Health related social needs inadequate housing Health related social needs details Pt homeless, at [facility] but housing is stable [facility]. Discharge Plan Discharge Details Chief Complaint: PsychEval Clinical Impression: Paranoid delusion, Schizoaffective disorder, Cocaine use disorder Admit Date/Time: 02/08/25 07:17 Admit Provider: Tonio Cervantes Attending Provider: Tonio Cervantes Primary Care Provider: Unknown,Unknown ED Provider: Tonio Cervantes
--- NOTE | 2025-02-08 12:12 | CMSP_ITS ---
Date of service: 02/08/25 Time of Service: 12:12 Care Management Safety Plan Status Status: Voluntary Reason for Wait Reason for Wait: Inpatient Admission Safety Plan Safety Plan: VOLUNTARY FOR INPATIENT PSYCHIATRIC STABILIZATION.? Patient is appropriate in all interactions since arriving at [facility]; Pt has demonstrated appropriate coping and communication skills, has articulated his or her needs and concerns and is fully engaged during staff interactions. Safety plan has been established with patient, and care team, to adhere to patient goals, identify restrictions based on behavioral status, address nutrition, and determine allowed personal belongings, tools for hygiene and personal care. Determine level of activity including ambulation, level of supervision, visitors, and determine privileges based on behaviors and level of engagement by pt. VOLUNTARY SAFETY PLAN: 1. Will remain on suicide precautions, in paper clothes. 2. Will remain in Zone B under direct supervision of one-on-one staff at all times provided by [employer]; MARIA C, MOBILE SECURITY ARCHITECT psych coordinator. 3. May have paper cups, plates, finger foods as well as a cardboard spoon with which to eat meals. 4. Follow [facility] Management of the Admitted Behavioral Health Patient policy. 5. Shower available in Zone B without restriction. 6. Personal belongings-soft items permitted at RN discretion. 7. Visitors- supportive visitors, at RN discretion. 8. Activities: soft cart items, hospital tablets (Netflix/[place]+/music) approved per RN discretion. 9.? Bathroom available in Zone B without restriction. 10. Phone: limited to [facility] cordless phone at RN discretion. Due to VOLUNTARY status, if patient wishes to leave [facility], staff will contact [facility] Crisis Screener ([phone]) and Fiberglass Product Tester ([phone]) as soon as possible. In the event of elopement, notify [facility] Police ([phone]). Patient is currently voluntarily at [facility] and seeking inpatient admission when a bed becomes available. [facility] Frontline Bond Writer will continue seeking placement. Please contact the Fiberglass Product Tester ([phone]) and [facility] Bond Writer ([phone]) for any needed changes in the Safety Plan. Safety plan has been provided to interdepartmental care team.
--- NOTE | 2025-02-08 12:12 | PDOC.CMSAFE ---
Date of service: 02/08/25 Time of Service: 12:12 Care Management Safety Plan Status Status: Voluntary Reason for Wait Reason for Wait: Inpatient Admission Safety Plan Safety Plan: VOLUNTARY FOR INPATIENT PSYCHIATRIC STABILIZATION.? Patient is appropriate in all interactions since arriving at [facility]; Pt has demonstrated appropriate coping and communication skills, has articulated his or her needs and concerns and is fully engaged during staff interactions. Safety plan has been established with patient, and care team, to adhere to patient goals, identify restrictions based on behavioral status, address nutrition, and determine allowed personal belongings, tools for hygiene and personal care. Determine level of activity including ambulation, level of supervision, visitors, and determine privileges based on behaviors and level of engagement by pt. VOLUNTARY SAFETY PLAN: 1. Will remain on suicide precautions, in paper clothes. 2. Will remain in Zone B under direct supervision of one-on-one staff at all times provided by [employer]; MARIA C, MANAGER HIGHWAY sanitor. 3. May have paper cups, plates, finger foods as well as a cardboard spoon with which to eat meals. 4. Follow [facility] Management of the Admitted Behavioral Health Patient policy. 5. Shower available in Zone B without restriction. 6. Personal belongings-soft items permitted at RN discretion. 7. Visitors- supportive visitors, at RN discretion. 8. Activities: soft cart items, hospital tablets (Netflix/[place]+/music) approved per RN discretion. 9.? Bathroom available in Zone B without restriction. 10. Phone: limited to [facility] cordless phone at RN discretion. Due to VOLUNTARY status, if patient wishes to leave [facility], staff will contact [facility] Crisis Screener ([phone]) and Heeler ([phone]) as soon as possible. In the event of elopement, notify [facility] Police ([phone]). Patient is currently voluntarily at [facility] and seeking inpatient admission when a bed becomes available. [facility] Frontline Watch Repair Person will continue seeking placement. Please contact the Heeler ([phone]) and [facility] Watch Repair Person ([phone]) for any needed changes in the Safety Plan. Safety plan has been provided to interdepartmental care team.
--- NOTE | 2025-02-08 12:15 | PDOC.CMPRO ---
Date of service: 02/08/25 Time of Service: 12:15 Care Management Progress Note Progress Note Text Progress Note Text: CM huddled with [facility] and [facility] staff regarding Jennyfer's plan of care. Per RN, Jennyfer has been taking medications as prescribed and has been cooperative today. She has been watching TV; remote is being held by staff. Per [facility], Jennyfer is reporting active HI, with a plan and intent, towards her previous friend whom she was living with. She is upset with this individual because when Jennyfer was no longer able to stay with her, she had to rehome her dogs, who she was very close to. Jennyfer reported that she does not want to feel this way, and she is seeking treatment to help. Jennyfer was recently hospitalized at [facility], and then had a short stay at the care bed; unfortunately she reported that the care bed was not a helpful experience for her. Per report, she has two daughters and a friend, Gaye, who are supportive. She may have supportive phone calls and visitors, at RN discretion. Jennyfer is voluntary, seeking inpatient psychiatric stabilization. Referrals are being sent by [facility] today. Safety plan in place; CM will continue to follow. Social Determinants of Health Screening Will the Patient Participate in the Screening?: Declined to provide
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
[2025-02-08 19:07] VITALS: BP 100/64; PULSE 96; RESP 18; TEMP 36.4; O2SAT 95
[2025-02-08] MEDS: QUEtiapine 100 MG TAB 400 MG PO (19:59)
[2025-02-08] MEDS: Acetaminophen 325 MG TAB 650 MG PO (19:59)
[2025-02-08] MEDS: buPROPion-CR 150 MG TABCR PO (19:59)
[2025-02-08] MEDS: traZODone 100 MG TAB PO (20:00)
--- NOTE | 2025-02-09 02:15 | W.EDPROG ---
Date of service: 02/08/25 Time of Service: 23:30 Medical Decision Making This patient was signed out to me. Please see previous notes for H&P and initial eval. In brief, 44yo F with psychosis pending inpatient placement. No acute events overnight. Will be signed out to oncoming physician; plan remains as above. Quality:SDOH Health Related Social Needs: Health related social needs inadequate housing Health related social needs details Pt homeless, at [facility] but housing is stable [facility]. Discharge Plan Discharge Details Chief Complaint: PsychEval Clinical Impression: Paranoid delusion, Schizoaffective disorder, Cocaine use disorder Admit Date/Time: 02/08/25 07:17 Admit Provider: Tonio Cervantes Attending Provider: Tonio Cervantes Primary Care Provider: Unknown,Unknown ED Provider: Kathleen Sol
[2025-02-09 05:47] VITALS: BP 112/76; PULSE 92; RESP 16; TEMP 36.6; O2SAT 95
[2025-02-09] MEDS: Omeprazole 20 MG CAPCR PO (07:00)
--- NOTE | 2025-02-09 07:14 | ED.PSYCHBOAR ---
Date of service: 02/09/25 Time of Service: 07:14 Psychiatric Border Handoff Update Brief Story: Patient currently voluntary for paranoia and threats of self-harm. No new acute complaints. Will continue to monitor until safe disposition found. Status: voluntary Able to leave: would need physician/BOLA and crisis evaluation prior to leaving Mediation Reconciliation performed: Yes Code Status ordered: Yes Diet ordered: Yes Discharge Plan Discharge Details Chief Complaint: PsychEval Clinical Impression: Paranoid delusion, Schizoaffective disorder, Cocaine use disorder Admit Date/Time: 02/08/25 07:17 Admit Provider: Tonio Cervantes Attending Provider: Tonio Cervantes Primary Care Provider: Unknown,Unknown ED Provider: Mickey Mackay
[2025-02-09] MEDS: QUEtiapine 50 MG TAB PO (07:15)
[2025-02-09 07:25] VITALS: BP 110/74; PULSE 91; RESP 16; TEMP 36.9; O2SAT 96
[2025-02-09] MEDS: buPROPion-CR 150 MG TABCR PO (08:21)
[2025-02-09] MEDS: Acetaminophen 325 MG TAB 650 MG PO (08:21)
[2025-02-09] MEDS: LORazepam 0.5 MG TAB PO (09:37)
--- NOTE | 2025-02-09 16:22 | PDOC.CMPRO ---
Date of service: 02/09/25 Time of Service: 16:22 Care Management Progress Note Progress Note Text Progress Note Text: EFREN spoke with Jennyfer's RN to discuss her plan of care. Per RN, she was on the phone earlier with economic services, as she was concerned about her housing voucher expiring. Jennyfer was accepted at [facility] for inpatient psychiatric treatment. She was transported via [employer]. Social Determinants of Health Screening Will the Patient Participate in the Screening?: Declined to provide
--- NOTE | 2025-02-09 20:50 | NUR.NOTE ---
Nursing Note: accessed pt chart per [facility] phone call requesting information on patients disposition.
== END 2025-02-09 11:46 ==
LOC: ER 02-08 07:07 → EDHOLD 02-08 10:45
PROVIDERS: Emergency Medicine; Emergency Provider Emergency Medicine
DX: F22 Delusional disorders (principal); F25.8 Other schizoaffective disorders; F14.10 Cocaine abuse, uncomplicated
CPT/HCPCS: 00123; 80053; 80307; 81025; 93005; 96127; H0046; 80320; 81003; 81015; 83735; 85025; 93010; 99285

== ENCOUNTER 2025-05-04 08:51 | Emergency (ER) | payer MEDICAID, SELFPAY ==
[2025-05-04 08:57] VITALS: BP 125/80; PULSE 84; RESP 18; O2SAT 96
[2025-05-04 09:04] VITALS: BP 125/80; PULSE 84; RESP 18; O2SAT 96
--- NOTE | 2025-05-04 09:21 | W.ED.GENAD ---
Discharge Plan Disposition Patient Disposition: Home Condition: Good Discharge Details Clinical Impression: Dental caries, Pain, dental, Antibiotic-induced yeast infection, Antibiotic-associated diarrhea, Asthma, Medication refill Primary Care Provider: Mariana Peralta ED Provider: Dena Martinez [place] Meds and New Rx's Prescriptions: Continued omeprazole 20 mg capsule,delayed release(DR/EC) 20 mg PO DAILY Rx Instructions: 1 hour prior to meals quetiapine [Seroquel] 100 mg tablet 200 mg PO .am Rx Instructions: 100 mg qam, 400 mg qpm quetiapine 50 mg tablet 25 mg PO DAILY PRN gabapentin 300 mg capsule 300 mg PO TID trazodone 100 mg tablet 200 mg PO QHS cyclobenzaprine 10 mg tablet 10 mg PO TID PRNQty: 15 0RF clonidine HCl 0.1 mg tablet 0.1 mg PO HS PRN PRN Patient Comments: Per [facility] med list - TAKE ONE (1) TABLET BY MOUTH at Bedtime NEEDED albuterol 90 mcg/actuation aerosol 180 mcg inhalation Q4H PRN PRN Patient Comments: Per [facility] list bupropion HCl [Wellbutrin SR] 150 mg tablet sustained-release 12 hr 150 mg PO BID Patient Comments: Per [facility] list gabapentin 400 mg capsule 400 mg PO TID PRN Patient Comments: Per [facility] list lorazepam [Ativan] 0.5 mg tablet 0.5 mg PO DAILY Patient Comments: Per [facility] list quetiapine 400 mg tablet extended release 24 hr 400 mg PO QPM Patient Comments: Per [facility] list tramadol 25 mg tablet 25 mg PO DAILY Patient Comments: Per [facility] med list ziprasidone HCl [Geodon] 80 mg capsule 80 mg PO DAILY Rx Instructions: give with food (meal/snack) Discharge Instructions Instructions: Asthma in adults, Dental Pain ED Additional Instructions: As we discussed, I am concerned that your diarrhea may be associated with the antibiotic she been taking and would like a sample of your stool to go to the lab for further testing. Depending on what is found there, you may require different antibiotics to treat this. you do not have evidence to suggest dehydration at this point but people can become dehydrated from a large amount of diarrhea so I do encourage you to increase your water intake. Regard to your yeast infection, the dose of fluconazole given here today should cover your infection and symptoms to begin to resolve next 24 to 48 hours. This was likely also associated with the antibiotics. Your continued dental pain appears to be associated with a cavity that is under the crown on your back tooth that has now eroded with nerve involvement. Having these nerves exposed can cause significant dental pain and having these covered can temporarily help with the pain, such as the dental wax provided. Please continue to brush your teeth but after you may reapply the dental wax to help with the discomfort. You will need definitive care with dentist, list of local dentists are attached, please call today to schedule follow-up appointment. You have been given another albuterol inhaler and I have asked our care management team to expedite your follow-up with your primary care. You should hear from them today or tomorrow regarding possible sooner appointment. Please continue to use the albuterol inhaler as you were previously instructed and try to monitor symptoms to identify things that may exacerbate your asthma as you had discussed with the air quality. If you develop any new or worsening symptoms please seek care urgently once again. Discharge Data Discharge Date/Time-TO BE ENTERED AT DEPARTURE: 05/04/25 10:38 [facility] General Date/Time Provider Initiated Documentation: 05/04/25 08:55. Limitations to Documentation: no limitations. Information obtained by: patient, RN notes reviewed and old records reviewed. History of Present Illness 44 year old F presents to the emergency department with the chief complaint of Dental pain, medication refill, diarrhea, yeast infection, described as moderate and similar to prior episodes, Related Data Home Medications ?Medication ?Instructions ?Recorded ?Confirmed omeprazole 20 mg capsule,delayed 20 mg PO DAILY 03/01/24 05/04/25 release cyclobenzaprine 10 mg tablet 10 mg PO TID PRN #15 tabs 12/28/24 05/04/25 gabapentin 300 mg capsule 300 mg PO TID 12/28/24 05/04/25 quetiapine 100 mg tablet (Seroquel) 200 mg PO .am 12/28/24 05/04/25 quetiapine 50 mg tablet 25 mg PO DAILY PRN 12/28/24 05/04/25 trazodone 100 mg tablet 200 mg PO QHS 12/28/24 05/04/25 clonidine HCl 0.1 mg tablet 0.1 mg PO HS PRN PRN 01/19/25 05/04/25 albuterol 90 mcg/actuation aerosol 180 mcg inhalation Q4H PRN PRN 02/08/25 05/04/25 inhaler bupropion HCl 150 mg tablet,12 hr 150 mg PO BID 02/08/25 05/04/25 sustained-release (Wellbutrin SR) gabapentin 400 mg capsule 400 mg PO TID PRN 02/08/25 05/04/25 lorazepam 0.5 mg tablet (Ativan) 0.5 mg PO DAILY 02/08/25 05/04/25 quetiapine 400 mg tablet,extended 400 mg PO QPM 02/08/25 05/04/25 release 24 hr tramadol 25 mg tablet 25 mg PO DAILY 02/08/25 05/04/25 ziprasidone HCl 80 mg capsule 80 mg PO DAILY 05/04/25 05/04/25 (Kimmy) Previous Rx's ?Medication ?Instructions ?Recorded cyclobenzaprine 10 mg tablet 10 mg PO TID PRN #15 tabs 12/28/24 Allergies Allergy/AdvReac Type Severity Reaction Status Date / Time Penicillins Allergy Mild Skin Rash Verified 05/04/25 09:00 General Stated Complaint: GenMedical BLANCHE: 3 Review of Systems Constitutional Constitutional: Reports as per HPI, Denies fever(s) and Denies headache(s) ENT Ears, Nose, Mouth, and Throat: Reports dental pain, Denies dizziness, Denies facial pain, Denies headache(s), Denies hoarseness, Denies sinus pressure and Denies sore throat Cardiovascular Cardiovascular: Reports as per HPI, Denies chest pain and Reports dyspnea Respiratory Respiratory: Reports as per HPI, Denies cough, Reports dyspnea and Reports wheezing Gastrointestinal Gastrointestinal: Reports as per HPI Genitourinary Genitourinary: Denies abnormal vaginal bleeding, Denies difficulty voiding, Reports genital pruritis, Denies genital lesions, Denies pelvic pain, Denies flank pain, Denies urinary urgency, Reports vaginal discharge (Thick white vaginal discharge), Denies vaginal odor and Reports vaginal pruritus Musculoskeletal Musculoskeletal: Reports as per HPI and Denies back pain Integumentary/Breasts Skin/Breast: Reports as per HPI and Denies rash Neurologic Neurologic: Reports as per HPI, Denies dizziness and Denies headache(s) Allergic/Immunologic Allergic/Immunologic: Reports wheezing Exam Const General: cooperative, healthy appearing, comfortable, no acute distress and well developed Nutritional Appearance: average body habitus and well nourished Orientation: alert and awake [facility] Head: normal to inspection Mouth: moist mucous membranes Resp Effort & Inspection: normal respiratory effort, able to speak in complete sentences and no respiratory distress Auscultation: clear to auscultation bilaterally, no rales, no rhonchi and no wheezes Cardio Rate: regular rate Rhythm: regular rhythm Heart Sounds: S1 normal and S2 normal Skin General skin exam: no rashes or lesions noted Trauma: no lacerations or abrasions Neuro General: patient alert and patient awake Cognition: normal cognition Speech: speech normal Gait: normal gait Psych Appearance: grossly normal and well kempt Mental Status: mental status grossly normal Speech and Movement: speech and movement normal Course Vital Signs Vital signs: Vital Signs Pulse 84 05/04/25 08:57 Respiratory Rate 18 05/04/25 08:57 Blood Pressure 125/80 05/04/25 08:57 Pulse Oximetry 96 05/04/25 08:57 Pulse 84 05/04/25 09:04 Respiratory Rate 18 05/04/25 09:04 Blood Pressure 125/80 05/04/25 09:04 Pulse Oximetry 96 05/04/25 09:04 Medical Decision Making Patient is pleasant 44-year-old female with past medical history significant for cocaine use, paranoid delusions, schizoaffective disorder, asthma, presenting today with chief complaint of dental pain, asthma exacerbation, diarrhea. Patient reports that she was seen recently and was diagnosed with a dental infection at urgent care. Was started on clindamycin. She reports that despite the clindamycin she continues to have dental pain and now has had watery diarrhea for the past few days that has been very consistent and severe. She denies any abdominal pain. Continues to have normal appetite to stay hydrated. She denies any blood in the stool. Patient reports that the dental pain has remade consistent she has not had any follow-up with a dentist, does not have a dentist locally. She denies any difficulty swallowing or trouble breathing associated with throat swelling. However, she does report that she has had increased asthma symptoms which she attributes to poor air quality recently. Has been using her albuterol more and is currently run out. She does not have a primary care appointment until June. She also describes vaginal yeast infection which she states began a few days after starting the antibiotics. She reports that she was just tested for STIs, no recent sexual partners. LMP 3 weeks ago. On exam, patient appears nontoxic. Resting notably no acute distress. Lungs are clear, no appreciable wheeze at this point. With her large psychiatric history as well as good pulmonary exam at this point, I do not feel that steroids are warranted but we will refill the albuterol. I would like for her to follow-up with primary care sooner than June and will contact them to see if we can expedite her appointment.Regarding her dental pain, patient does have a fractured #31 tooth inferiorly on the buccal side next to the gumline. This is a capped tooth but the area of erosion is inferior to the cath and based on the depth and location I believe that she likely has nerve exposed causing her dental pain. Do not see any erythema or swelling. No fluctuation to suggest an abscess. I feel that this likely more associated with chronic poor dentition, exposed nerve rather than an acute infection do not feel that continued antibiotics is warranted at this point. Rather, we use dental wax to try and cover the defect and see if this can help with her discomfort. I do not see any swelling under the tongue, no posterior oropharynx involvement. No lymphadenopathy. Abdomen is soft and nontender. We will test her for C. difficile, given her recent clindamycin usage this would be the concerning side effect. This is also what is likely causing symptoms of yeast infection. As the patient did just get tested for STDs, has not had any new sexual partners I do not feel that vaginal exam is warranted at this point particularly with the patient's large amount of anxiety and feel that treatment with fluconazole is appropriate. I did discuss intravaginal treatment versus pills and she reports that when she has had these before she had prefer the pills and I felt that they work well for her. Patient attempted to give a stool sample while here and was unable. She would prefer to be discharged home at this time with supplies to be able to collect stool sample and redness and as soon as possible to the lab. She will continue to encourage hydration. She will return the sample is soon as possible. Patient has dental wax and will continue uses to help with pain, list for local dentist for definitive care was given to the patient she will call today to schedule appointment. I have asked her care management team to assist in moving up her primary care appointment to a more reasonable timeline to be able to assist with her chronic conditions. Patient received her fluconazole here. She has albuterol replacement inhaler. We were able to call and ensure that she has an appointment next week with primary care. Patient reports that she feels improved after dental wax was applied. She will continue to use this but I did encourage that she can take this off to brush her teeth and perform routine dental care. Encouraged hydration. She will return with her stool sample for C. difficile testing. Patient received her one-time dose of fluconazole while here. She went home with her refill of her inhaler and has follow-up next week. Return precautions were discussed. Any signs were related to her care management team who will ensure that she is able to get to her follow-up appointment. All her questions and concerns were addressed and she is in agreement this plan. Quality:SDOH Health Related Social Needs: Health related social needs inadequate housing Health related social needs details Pt homeless, at [place] but housing is stable [facility]. PFSH All Active Problems (Updated 05/04/25 @ 10:24 by ANGÉLICA Blackmon) Medication refill (Acute) Asthma (Chronic) Antibiotic-associated diarrhea (Acute) Antibiotic-induced yeast infection (Acute) Pain, dental (Acute) Dental caries (Acute) Cocaine use disorder (Acute) Paranoid delusion (Acute) Social History Smoking/Tobacco Use Status: Never Smoking risk assessment performed?: Yes Alcohol Intake: never Drug use: Daily Substance use type: marijuana, crack/cocaine, amphetamines, opiates, painkillers, IV drugs and methamphetamine Details: last use this evening Housing: house In current or past relationships, have you been: made to feel afraid Do you feel safe at home: No Do you feel safe in your relationship?: No Additional Social history: afraid at home
[2025-05-04] MEDS: Albuterol HFA 8 GM 60 PUFF INH IH (10:08)
[2025-05-04] MEDS: Fluconazole 150 MG TAB PO (10:08)
[2025-05-04 10:37] VITALS: RESP 18
--- NOTE | 2025-05-04 10:55 | NUR.NOTE ---
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 Rashid Martinez is aware. Nursing Note:
== END 2025-05-04 10:38 | disposition home or self-care (01) ==
PROVIDERS: Emergency Provider Physician Assistant; PCP Nurse Practitioner Family
DX: J45.909 Unspecified asthma, uncomplicated (principal); K04.7 Periapical abscess without sinus; T36.95XA Adverse effect of unspecified systemic antibiotic, initial encounter; Z59.10 Inadequate housing, unspecified
CPT/HCPCS: 99283 ×2

== ENCOUNTER 2025-05-29 19:00 | Emergency (ER) | payer MEDICAID, SELFPAY ==
[2025-05-29 19:07] VITALS: BP 105/57; PULSE 114; RESP 16; O2SAT 96
--- NOTE | 2025-05-29 19:27 | W.ED.GENAD ---
Discharge Plan Discharge Details Chief Complaint: PsychEval Primary Care Provider: Mariana Peralta ED Provider: Kahtleen Sol Home Meds and New Rx's Prescriptions: No [facility] omeprazole 20 mg capsule,delayed release(DR/EC) 20 mg PO DAILY Rx Instructions: 1 hour prior to meals quetiapine [Seroquel] 100 mg tablet 200 mg PO .am Rx Instructions: 100 mg qam, 400 mg qpm quetiapine 50 mg tablet 25 mg PO DAILY PRN gabapentin 300 mg capsule 300 mg PO TID trazodone 100 mg tablet 200 mg PO QHS cyclobenzaprine 10 mg tablet 10 mg PO TID PRNQty: 15 0RF clonidine HCl 0.1 mg tablet 0.1 mg PO HS PRN PRN Patient Comments: Per [place] med list - TAKE ONE (1) TABLET BY MOUTH at Bedtime NEEDED albuterol 90 mcg/actuation aerosol 180 mcg inhalation Q4H PRN PRN Patient Comments: Per [place] med list bupropion HCl [Wellbutrin SR] 150 mg tablet sustained-release 12 hr 150 mg PO BID Patient Comments: Per [place] med list gabapentin 400 mg capsule 400 mg PO TID PRN Patient Comments: Per [place] med list lorazepam [Ativan] 0.5 mg tablet 0.5 mg PO DAILY Patient Comments: Per [place] med list quetiapine 400 mg tablet extended release 24 hr 400 mg PO QPM Patient Comments: Per [place] med list tramadol 25 mg tablet 25 mg PO DAILY Patient Comments: Per [place] med list ziprasidone HCl [Geodon] 80 mg capsule 80 mg PO DAILY Rx Instructions: give with food (meal/snack) HPI General Mode of arrival: ambulatory. Date/Time Provider Initiated Documentation: 05/29/25 19:02. Limitations to Documentation: no limitations. Information obtained by: patient, RN notes reviewed and old records reviewed. HPI Narrative: 44-year-old female presents to the ER with a chief complaint of suicidal ideation and homicidal ideation which she reports began today. She does have a history of schizophrenia she states that she was evaluated by [facility] human services prior to arrival. She also endorses taking extra of her trazodone and drinking 2 beers prior to arrival. She states that she is having auditory hallucinations and hearing voices and hearing music. She denies any other illicit drugs she is a non-smoker. Related Data Home Medications ?Medication ?Instructions ?Recorded ?Confirmed omeprazole 20 mg capsule,delayed 20 mg PO DAILY 03/01/24 05/29/25 release cyclobenzaprine 10 mg tablet 10 mg PO TID PRN #15 tabs 12/28/24 05/29/25 gabapentin 300 mg capsule 300 mg PO TID 12/28/24 05/29/25 quetiapine 100 mg tablet (Seroquel) 200 mg PO .am 12/28/24 05/29/25 quetiapine 50 mg tablet 25 mg PO DAILY PRN 12/28/24 05/29/25 trazodone 100 mg tablet 200 mg PO QHS 12/28/24 05/29/25 clonidine HCl 0.1 mg tablet 0.1 mg PO HS PRN PRN 01/19/25 05/29/25 albuterol 90 mcg/actuation aerosol 180 mcg inhalation Q4H PRN PRN 02/08/25 05/29/25 inhaler bupropion HCl 150 mg tablet,12 hr 150 mg PO BID 02/08/25 05/29/25 sustained-release (Wellbutrin SR) gabapentin 400 mg capsule 400 mg PO TID PRN 02/08/25 05/29/25 lorazepam 0.5 mg tablet (Ativan) 0.5 mg PO DAILY 02/08/25 05/29/25 quetiapine 400 mg tablet,extended 400 mg PO QPM 02/08/25 05/29/25 release 24 hr tramadol 25 mg tablet 25 mg PO DAILY 02/08/25 05/29/25 ziprasidone HCl 80 mg capsule 80 mg PO DAILY 05/04/25 05/29/25 (Kimmy) Previous Rx's ?Medication ?Instructions ?Recorded cyclobenzaprine 10 mg tablet 10 mg PO TID PRN #15 tabs 12/28/24 Allergies Allergy/AdvReac Type Severity Reaction Status Date / Time Penicillins Allergy Mild Skin Rash Verified 05/29/25 19:13 General Stated Complaint: PsychEval BLANCHE: 2 Review of Systems All systems reviewed & are unremarkable except as noted in HPI and below Psychiatric Psychiatric: Reports as per HPI, Reports auditory hallucinations, Reports homicidal ideation (I have a plan for homicidal ideation) and Reports suicidal ideation Exam Narrative Exam Narrative: Constitutional: Alert and oriented x3. Appears stated age. Normal body habitus. Head: Normocephalic, no trauma. Eyes: Pupils PERRL, Red reflex noted, EOM's intact. Eyelids symmetrical without lesions, discharge, or swelling. Chest: RRR, Normal S1, S2, distal pulses intact. Resp: Lungs clear to auscultation bilaterally, no wheezes, rales, or rhonchi. Abdomen: Soft, non-distended, Normoactive bowel sounds all 4 quads. Musculoskeletal: Normal gait, Moves all 4 extremities without difficulty. Skin: No suspicious rashes or lesions. Capillary refill less than 2 sec. Neurologic: Cranial nerves II-XII intact. Alert and oriented x 3. Motor: No deficits noted. Sensory: Intact bilaterally all 4 extremities. Hematologic/Lymphatic: No ecchymosis, no lymphadenopathy. Psychiatric: See below Psych Appearance: well kempt Speech and Movement: pressured speech and restless Mood: congruent mood and irritable mood Affect: animated Attitude: cooperative Thought Process: flight of ideas Thought Content: hallucinations, homicidality and suicidality Insight: insight good and fair Judgment: fair Course Vital Signs Vital signs: Vital Signs Pulse 114 H 05/29/25 19:07 Respiratory Rate 16 05/29/25 19:07 Blood Pressure 105/57 L 05/29/25 19:07 Pulse Oximetry 96 05/29/25 19:07 Pulse 114 H 05/29/25 19:07 Respiratory Rate 16 05/29/25 19:07 Blood Pressure 105/57 L 05/29/25 19:07 Blood Pressure Position Sitting 05/29/25 19:07 Pulse Oximetry 96 05/29/25 19:07 Oxygen Delivery Method Room Air 05/29/25 19:07 Oxygen Flow Rate 0 05/29/25 19:07 Pain Level 0 05/29/25 19:07 Medical Decision Making 44-year-old female presents to the ER with a chief complaint of suicidal ideation and homicidal ideation which she reports began today. She does have a history of schizophrenia she states that she was evaluated by [facility] human services prior to arrival. She also endorses taking extra of her trazodone and drinking 2 beers prior to arrival. She states that she is having auditory hallucinations and hearing voices and hearing music. She denies any other illicit drugs she is a non-smoker. UDS, U-preg, Ethyl alcohol level ordered. Call to MICHAEL placed by unit aide tech to confirm if patient was evaluated prior to arrival. I spoke with Ayleen with an EKG chest they did already do an evaluation and will be seeking referrals for voluntary inpatient placement at this time. Positive for cocaine. Patient placed in paper scrubs by ED staff, and in line of sight of nurses station. There is reentered off to oncoming provider Sharron Cadet pending voluntary admission patient has remained calm and cooperative throughout the remainder of her stay here. Medical Records Medical records reviewed: Yes I reviewed the patient's medical records. Lab Data Lab results reviewed: Yes I reviewed the patient's lab results. Labs: Laboratory Tests Range/Units 05/29/25 05/29/25 19:23 19:55 Urine Opiates Screen (Negative) Negative Urine Methadone Screen (Negative) Negative Ur Barbiturates Screen (Negative) Negative Ur Tricyclics Screen (Negative) Negative Ur Amphetamines Screen (Negative) Negative U Benzodiazepines Scrn (Negative) Negative Urine Cocaine Screen (Negative) Positive A Ur THC Screen (Negative) Negative Ethyl Alcohol (<10) mg/dL 171.4 H Quality:SDOH Health Related Social Needs: Health related social needs inadequate housing Health related social needs details Pt homeless, at [place] but housing is stable [facility]. PFSH All Active Problems Medication refill (Acute) Asthma (Chronic) Antibiotic-associated diarrhea (Acute) Antibiotic-induced yeast infection (Acute) Pain, dental (Acute) Dental caries (Acute) Cocaine use disorder (Acute) Paranoid delusion (Acute) Social History Smoking/Tobacco Use Status: Never Smoking risk assessment performed?: Yes Alcohol Intake: never Drug use: Daily Substance use type: marijuana, crack/cocaine, amphetamines, opiates, painkillers, IV drugs and methamphetamine Details: last use this evening Housing: house In current or past relationships, have you been: made to feel afraid Do you feel safe at home: No Do you feel safe in your relationship?: No Additional Social history: afraid at home
[2025-05-29 19:59] LABS: Cannabinoids THC Negative (Negative); METHADONE URINE SCREEN Negative (Negative)
[2025-05-29] MEDS: buPROPion-CR 150 MG TABCR PO (20:30)
[2025-05-29] MEDS: QUEtiapine 300 MG, QUEtiapine 100 MG 400 MG PO (20:30)
[2025-05-29] MEDS: Gabapentin 300 MG CAP PO (20:30)
[2025-05-29 22:45] VITALS: BP 95/62; PULSE 98; RESP 16; TEMP 37.1; O2SAT 94
--- NOTE | 2025-05-29 22:49 | PDOC.MHCN_ITS ---
Date of service: 05/29/25 Time of Service: 18:52 Mental Health Emergency Note Release [facility] release signed:: Yes Reason for Visit Jennyfer is presenting for inpatient mental health treatment. In the last 2 weeks has the pt presented for ES prior to today?: Unknown Client Information Client is: HERSON Well Housed: No,status: Not homeless, Unstable housing Non Suicidal Self Injury Current: No History: No Safety Risk/Harm to Self or Others Current Ideation to Harm Self or Others: Yes to self. (Jennyfer disclosed she would do anything to end her life. ) Intent: no, has no intent. Plan: no.does not have a plan. History of suicide attempt: No history of suicide attempt reported Risk: Does risk to harm exist?: yes. Access to means: No. Risk: Low Risk Duty to warn indicated: No Asssessment/Mental Status Appearance: Unremarkable Attitude: Cooperative Behavior: Unremarkable Speech: Normal Affect: Normal Mood: Stressed, Depressed and Anxious Thought process: Goal directed Hallucinations: No evidence Delusions: No evidence Attention: Unremarkable Perception: Not impaired Orientation: Fully orientated Memory: Intact Insight: Fair Judgement: Fair Neurovegetative Symptoms Sleep: Decrease Appetitie: No change Interests: No change Energy: No change Libido: Not applicable Substance Use: Do you use nicotine?: No Have you used substances in the last 7 days?: No Additional Issues: Assaultive/Threatening Behavior: No Medical Concerns: No Client engaged in active self harm w/weapon: No Threatening to run away: No Child reported abuse/neglect: No Voluntarily presenting for services: Yes Domestic violence is a concern: No Extreme Psychosis or extreme behavior is present: No Impression Jennyfer is a [age] year old single female who resides at the [facility]. Jennyfer was calling into the [facility] Police Department tonight and leaving different phone numbers reporting she was in crisis but was not answering when mobile crisis was outreaching to her. Jennyfer was seen by this medical underwriter and SAMUEL Montemayor. Sim was in person and this medical underwriter was Telehealth. Jennyfer is previously known to this medical underwriter, SAMUEL Montemayor, and [facility]. Jennyfer presents in street clothes reporting she is endorsing suicidal ideation and feels triggered by her daughter who lives in [place]. Jennyfer reports she would do anything she could including drown herself, overdose, etc in attempt to end her life right now. Jennyfer disclosed she is not safe to be at home/[facility]. Jennyfer disclosed endorsing HI but did not disclose further details. Jennyfer reports she was at [facility] 24 days ago and she found it very helpful. Jennyfer has been sober for about one month but recently drank alcohol. Jennyfer reports she is struggling due to stress, suicidal ideation, and not knowing what to do. Jennyfer shared she has been to treatment many times in the past both voluntary and involuntary and is trying to get how now when she is starting to notice her decline. Jennyfer would like to seek voluntary inpatient mental health treatment so she will be brought to [facility] by a friend and will await treatment from the emergency room. SAMUEL Montemayor called [facility] to update them as well. Plan/Disposition Recommended Disposition: Hospitalization (Referrals will be sent to , [facility], [facility]), and ) facilities contacted. Plan: Jennyfer will remain at [facility] until treatment is secured. Person reported agreement to plan: Yes Reports/communication Outcome discussed with: ED/Personnel
[2025-05-30] MEDS: Omeprazole 20 MG CAPCR PO (07:48)
--- NOTE | 2025-05-30 08:21 | ED.PSYCHBOAR ---
Date of service: 05/30/25 Time of Service: 08:21 Psychiatric Border Handoff Update Brief Story: Patient seeking voluntary placement for SI, no new acute complaints. Will continue to monitor until safe disposition found. Status: voluntary Able to leave: would need physician/BOLA and crisis evaluation prior to leaving Mediation Reconciliation performed: Yes Code Status ordered: Yes Diet ordered: Yes Discharge Plan Discharge Details Chief Complaint: PsychEval Clinical Impression: Depression Primary Care Provider: Mariana Peralta ED Provider: Mickey Mackay [place] Meds and New Rx's Prescriptions: No Action omeprazole 20 mg capsule,delayed release(DR/EC) 20 mg PO DAILY Rx Instructions: 1 hour prior to meals quetiapine [Seroquel] 100 mg tablet 200 mg PO .am Rx Instructions: 100 mg qam, 400 mg qpm quetiapine 50 mg tablet 25 mg PO DAILY PRN gabapentin 300 mg capsule 300 mg PO TID trazodone 100 mg tablet 200 mg PO QHS cyclobenzaprine 10 mg tablet 10 mg PO TID PRNQty: 15 0RF clonidine HCl 0.1 mg tablet 0.1 mg PO HS PRN PRN Patient Comments: Per [place] med list - TAKE ONE (1) TABLET BY MOUTH at Bedtime NEEDED albuterol 90 mcg/actuation aerosol 180 mcg inhalation Q4H PRN PRN Patient Comments: Per [facility] med list bupropion HCl [Wellbutrin SR] 150 mg tablet sustained-release 12 hr 150 mg PO BID Patient Comments: Per [facility] med list gabapentin 400 mg capsule 400 mg PO TID PRN Patient Comments: Per [facility] med list lorazepam [Ativan] 0.5 mg tablet 0.5 mg PO DAILY Patient Comments: Per [facility] med list quetiapine 400 mg tablet extended release 24 hr 400 mg PO QPM Patient Comments: Per [facility] med list tramadol 25 mg tablet 25 mg PO DAILY Patient Comments: Per [facility] med list ziprasidone HCl [Geodon] 80 mg capsule 80 mg PO DAILY Rx Instructions: give with food (meal/snack)
[2025-05-30] MEDS: QUEtiapine 100 MG TAB PO (09:14)
[2025-05-30] MEDS: buPROPion-CR 150 MG TABCR PO ×2 (09:14→19:06)
[2025-05-30] MEDS: Gabapentin 300 MG CAP PO ×3 (09:15→19:06)
[2025-05-30 11:54] VITALS: BP 116/81; PULSE 93; TEMP 36.9; O2SAT 95
--- NOTE | 2025-05-30 15:52 | CMSP_ITS ---
Date of service: 05/30/25 Time of Service: 15:52 Care Management Safety Plan Status Status: Voluntary Reason for Wait Reason for Wait: Inpatient Admission Safety Plan Safety Plan: VOLUNTARY FOR INPATIENT PSYCHIATRIC STABILIZATION.? Patient is appropriate in all interactions since arriving at [facility]; Pt has demonstrated appropriate coping and communication skills, has articulated her needs and concerns and is fully engaged during staff interactions. Safety plan has been established with patient, and care team, to adhere to patient goals, identify restrictions based on behavioral status, address nutrition, and determine allowed personal belongings, tools for hygiene and personal care. Determine level of activity including ambulation, level of supervision, visitors, and determine privileges based on behaviors and level of engagement by pt. VOLUNTARY SAFETY PLAN: 1. Will remain on suicide precautions, in paper clothes 2. Will remain in Zone B under direct supervision of one-on-one staff at all times provided by [employer]; MARIA C, LADLER icer machine operator. 3. May have paper cups, plates, finger foods as well as a cardboard spoon with which to eat meals. 4. Follow [facility] Management of the Admitted Behavioral Health Patient policy. 5. Shower available in Zone B without restriction. 6. Personal belongings-soft items permitted at RN discretion. 7. Visitors-none at this time. 8. Activities: soft cart items, hospital tablets (Netflix/Champlain+/music) approved per RN discretion. 9.? Bathroom available in Zone B without restriction. 10. Phone: limited to [facility] cordless phone at RN discretion. Due to VOLUNTARY status, if patient wishes to leave [facility], staff will contact [facility] Crisis Screener ([phone]) and [employer] ([phone]) as soon as possible. In the event of elopement, notify [facility] Police ([phone]). Patient is currently voluntarily at [facility] and seeking inpatient admission when a bed becomes available. [facility] Frontline Ca[employer]ic [employer] Shift Superintendent will continue seeking placement. Please contact the [employer] ([phone]) and [facility] Caustic [employer] Shift Superintendent ([phone]) for any needed changes in the Safety Plan. Safety plan has been provided to interdepartmental care team.
--- NOTE | 2025-05-30 15:52 | PDOC.CMSAFE ---
Date of service: 05/30/25 Time of Service: 15:52 Care Management Safety Plan Status Status: Voluntary Reason for Wait Reason for Wait: Inpatient Admission Safety Plan Safety Plan: VOLUNTARY FOR INPATIENT PSYCHIATRIC STABILIZATION.? Patient is appropriate in all interactions since arriving at [facility]; Pt has demonstrated appropriate coping and communication skills, has articulated her needs and concerns and is fully engaged during staff interactions. Safety plan has been established with patient, and care team, to adhere to patient goals, identify restrictions based on behavioral status, address nutrition, and determine allowed personal belongings, tools for hygiene and personal care. Determine level of activity including ambulation, level of supervision, visitors, and determine privileges based on behaviors and level of engagement by pt. VOLUNTARY SAFETY PLAN: 1. Will remain on suicide precautions, in paper clothes 2. Will remain in Zone B under direct supervision of one-on-one staff at all times provided by [employer]; MARIA C, RADIOLOGIC TECHNOLOGIST CHIEF sewer pipe sorter. 3. May have paper cups, plates, finger foods as well as a cardboard spoon with which to eat meals. 4. Follow [facility] Management of the Admitted Behavioral Health Patient policy. 5. Shower available in Zone B without restriction. 6. Personal belongings-soft items permitted at RN discretion. 7. Visitors-none at this time. 8. Activities: soft cart items, hospital tablets (Netflix/[place]+/music) approved per RN discretion. 9.? Bathroom available in Zone B without restriction. 10. Phone: limited to [facility] cordless phone at RN discretion. Due to VOLUNTARY status, if patient wishes to leave [facility], staff will contact [facility] Crisis Screener ([phone]) and Battery Charger Tester ([phone]) as soon as possible. In the event of elopement, notify [facility] Police ([phone]). Patient is currently voluntarily at [facility] and seeking inpatient admission when a bed becomes available. [facility] Frontline Order Planner will continue seeking placement. Please contact the Battery Charger Tester ([phone]) and [facility] Order Planner ([phone]) for any needed changes in the Safety Plan. Safety plan has been provided to interdepartmental care team.
--- NOTE | 2025-05-30 15:54 | CMPROGNOTE_ITS ---
Date of service: 05/30/25 Time of Service: 15:54 Care Management Progress Note Progress Note Text Progress Note Text: Jennyfer was admitted with SI and HI. She does have a history of schizophrenia and reported having auditory hallucinations. She also stated she took extra trazadone and drank some beer. Jennyfer was screened in the community buy [facility] and has agreed to seek voluntary placement. Reportedly [facility] is reviewing her for a potential admission. Social Determinants of Health Screening Will the Patient Participate in the Screening?: Unable to obtain
[2025-05-30] MEDS: QUEtiapine 300 MG, QUEtiapine 100 MG 400 MG PO (19:06)
--- NOTE | 2025-05-30 20:12 | ED.PSYCHBOAR ---
Date of service: 05/30/25 Time of Service: 20:12 Psychiatric Border Handoff Update Brief Story: 44-year-old female presents to the ER with a chief complaint of suicidal ideation and homicidal ideation. She does have a history of schizophrenia she states that she was evaluated by [facility] human services prior to arrival. She also endorses taking extra of her trazodone and drinking 2 beers prior to arrival. She states that she is having auditory hallucinations and hearing voices and hearing music. She denies any other illicit drugs she is a non-smoker. We are awaiting placement. The patient has not had any new complaints or concerns during the evening shift. She has eaten and is currently sleeping comfortably. Discharge Plan Discharge Details Chief Complaint: PsychEval Clinical Impression: Depression Primary Care Provider: Mariana Peralta ED Provider: Lizandro Brown Home Meds and New Rx's Prescriptions: No Action omeprazole 20 mg capsule,delayed release(DR/EC) 20 mg PO DAILY Rx Instructions: 1 hour prior to meals quetiapine [Seroquel] 100 mg tablet 200 mg PO .am Rx Instructions: 100 mg qam, 400 mg qpm quetiapine 50 mg tablet 25 mg PO DAILY PRN gabapentin 300 mg capsule 300 mg PO TID trazodone 100 mg tablet 200 mg PO QHS cyclobenzaprine 10 mg tablet 10 mg PO TID PRNQty: 15 0RF clonidine HCl 0.1 mg tablet 0.1 mg PO HS PRN PRN Patient Comments: Per [place] med list - TAKE ONE (1) TABLET BY MOUTH at Bedtime NEEDED albuterol 90 mcg/actuation aerosol 180 mcg inhalation Q4H PRN PRN Patient Comments: Per [place] med list bupropion HCl [Wellbutrin SR] 150 mg tablet sustained-release 12 hr 150 mg PO BID Patient Comments: Per [place] med list gabapentin 400 mg capsule 400 mg PO TID PRN Patient Comments: Per [place] med list lorazepam [Ativan] 0.5 mg tablet 0.5 mg PO DAILY Patient Comments: Per [place] med list quetiapine 400 mg tablet extended release 24 hr 400 mg PO QPM Patient Comments: Per [place] med list tramadol 25 mg tablet 25 mg PO DAILY Patient Comments: Per [place] med list ziprasidone HCl [Geodon] 80 mg capsule 80 mg PO DAILY Rx Instructions: give with food (meal/snack)
--- NOTE | 2025-05-30 22:36 | PDOC.MHPN2 ---
Date of service: 05/30/25 Time of Service: 12:19 Mental Health Emergency Note Release [facility] release signed:: Yes Reason for Visit The client is known to [facility] and currently receives services through the [id number] program. The client has been hospitalized numerous times and reports that they have all been voluntary. Yesterday mobile crisis assessment was completed and the client went to [facility] ED to seek voluntary inpatient treatment. This junior underwriter meets with the client face to face at [facility] ED for re-assessment. In the last 2 weeks has the pt presented for ES prior to today?: No Impression Per [facility] Pineda's note from 05/29: Jennyfer is a [age] year old single female who resides at the [facility]. Jennyfer was calling into the [facility] Police Department tonight and leaving different phone numbers reporting she was in crisis but was not answering when mobile crisis was outreaching to her. Jennyfer was seen by this junior underwriter and SAMUEL Montemayor. Sim was in person and this junior underwriter was Telehealth. Jennyfer is previously known to this junior underwriter, SAMUEL Montemayor, and [facility] Human Services. Jennyfer presents in street clothes reporting she is endorsing suicidal ideation and feels triggered by her daughter who lives in [place]. Jennyfer reports she would do anything she could including drown herself, overdose, etc in attempt to end her life right now. Jennyfer disclosed she is not safe to be at home/[facility]. Jennyfer disclosed endorsing HI but did not disclose further details. Jennyfer reports she was at [facility] 24 days ago and she found it very helpful. Jennyfer has been sober for about one month but recently drank alcohol. Today the client is laying down resting dressed in proper paper hospital attire. The client awakes and is cooperative with this junior underwriter. The client reports that she is doing ok and has been sleeping a lot since being at the ED. The client reports that she is continuing to have SI/ HI as well as intent and plan. The client reports that she still feels like inpatient treatment is necessary for stabilization. Plan/Disposition Recommended Disposition: Hospitalization facilities contacted. Plan: The client will remain at [facility] ED pending placement in an inpatient facility. The client will be re-assessed daily until placement is secured or the client is able to be safety planned back to the community. Person reported agreement to plan: Yes Reports/communication Outcome discussed with: ED/Personnel (Huddle completed with [facility] staff. )
--- NOTE | 2025-05-31 06:59 | ED.PSYCHBOAR ---
Date of service: 05/31/25 Time of Service: 07:00 Psychiatric Border Handoff Update Brief Story: In brief, this is a 44-year-old female patient with a history of schizophrenia presenting for suicidal and homicidal ideation as well as auditory hallucinations. Prior to my taking over their care, the patient was medically cleared, and has been resting comfortably. They have met with the social welfare administrator and we are awaiting final dispo. They have not required any additional medications for restraint or sedation. They have been admitted to ED psych observation. The patient was accepted to the [facility] today, doc to doc report given to Ania Randhawa. The patient was transported from this department without incident, remained hemodynamically appropriate while under my care. Guadalupe Ramírez MD Status: voluntary Able to leave: would need physician/BOLA and crisis evaluation prior to leaving Behavioral Concerns: None Potential Disposition: Inpatient Medical Concerns: None Mediation Reconciliation performed: Yes Code Status ordered: Yes Diet ordered: Yes Discharge Plan Disposition Patient Disposition: Psychiatric Hospital/Unit Specific Psychiatric Facility: [facility] Condition: Stable Discharge Details Clinical Impression: Depression, Suicide ideation Primary Care Provider: Mariana Peralta ED Provider: Guadalupe Ramírez Home Meds and New Rx's Prescriptions: No Action omeprazole 20 mg capsule,delayed release(DR/EC) 20 mg PO DAILY Rx Instructions: 1 hour prior to meals quetiapine [Seroquel] 100 mg tablet 200 mg PO .am Rx Instructions: 100 mg qam, 400 mg qpm quetiapine 50 mg tablet 25 mg PO DAILY PRN gabapentin 300 mg capsule 300 mg PO TID trazodone 100 mg tablet 200 mg PO QHS cyclobenzaprine 10 mg tablet 10 mg PO TID PRNQty: 15 0RF clonidine HCl 0.1 mg tablet 0.1 mg PO HS PRN PRN Patient Comments: Per [place] med list - TAKE ONE (1) TABLET BY MOUTH at Bedtime NEEDED albuterol 90 mcg/actuation aerosol 180 mcg inhalation Q4H PRN PRN Patient Comments: Per [place] med list bupropion HCl [Wellbutrin SR] 150 mg tablet sustained-release 12 hr 150 mg PO BID Patient Comments: Per [place] med list gabapentin 400 mg capsule 400 mg PO TID PRN Patient Comments: Per [place] med list lorazepam [Ativan] 0.5 mg tablet 0.5 mg PO DAILY Patient Comments: Per [place] med list quetiapine 400 mg tablet extended release 24 hr 400 mg PO QPM Patient Comments: Per [place] med list tramadol 25 mg tablet 25 mg PO DAILY Patient Comments: Per [place] med list ziprasidone HCl [Geodon] 80 mg capsule 80 mg PO DAILY Rx Instructions: give with food (meal/snack) Discharge Instructions Instructions: Suicide Prevention Additional Instructions: You were seen in the emergency department today for evaluation of suicidal and homicidal thoughts and auditory hallucinations. In our department you had a full physical examination performed and were medically cleared. You met with a member of our crisis team, and have been accepted for inpatient psychiatric care at [facility]. You should continue to follow all of the recommendations from this center as well as your outpatient providers. Thank you for allowing us to be part of your care.
[2025-05-31] MEDS: Omeprazole 20 MG CAPCR PO (07:32)
[2025-05-31 07:36] VITALS: BP 115/79; PULSE 93; RESP 16; TEMP 36.7; O2SAT 99
[2025-05-31] MEDS: buPROPion-CR 150 MG TABCR PO (08:14)
[2025-05-31] MEDS: Gabapentin 300 MG CAP PO (08:15)
[2025-05-31] MEDS: QUEtiapine 100 MG TAB PO (08:15)
[2025-05-31] MEDS: LORazepam 0.5 MG TAB PO (12:00)
--- NOTE | 2025-05-31 22:44 | NUR.NOTE ---
Nursing Note: accessed chart to get time of when patient left department
== END 2025-05-31 14:21 ==
PROVIDERS: Registered Nurse Emergency; Emergency Provider Emergency Medicine; PCP Nurse Practitioner Family
DX: F32.A Depression, unspecified (principal); R45.851 Suicidal ideations; R45.850 Homicidal ideations; R44.0 Auditory hallucinations
CPT/HCPCS: 00123; 80307; 81025; 99285; H0046; 80320

== ENCOUNTER 2025-07-13 09:20 | Emergency (ER) | payer MEDICAID, SELFPAY ==
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
--- NOTE | 2025-07-13 09:30 | RT.EKG_ITS ---
APPROVED REPORT Exam: Resting ECG Reason for Exam: Cheat Pain Patient Location: E HR:98 bpm ECG Measurements Heart Rate 98 AXIS ND 144 P 59 QRSd 69 QRS 40 QT 452 T 56 QTc 576 Conclusion Sinus rhythm...normal P axis, V-rate 60- 99 Prolonged QT interval...QTc >510mS No Occlusion NH
[2025-07-13 09:34] VITALS: BP 95/65; PULSE 114; RESP 16; O2SAT 94
[2025-07-13 10:11] VITALS: PULSE 98; TEMP 36.8
[2025-07-13] MEDS: LORazepam 0.5 MG TAB PO (10:19)
[2025-07-13] MEDS: Albuterol HFA 8 GM 60 PUFF INH IH (10:19)
[2025-07-13] MEDS: cloNIDine 0.1 MG TAB PO (10:19)
[2025-07-13 10:49] VITALS: BP 106/65; PULSE 97; RESP 17; O2SAT 96
--- NOTE | 2025-07-13 16:45 | W.TELEPSYCH ---
Date of service: 07/13/25 Time of Service: 16:45 Summary Note PSYCHIATRY PHONE NOTE Date/Time: 07/13/25, 3:44 PM REHABILITATION CENTER MANAGER Name: Jennyfer Washington : 1980 Location of the Patient: [facility] Ed Consulting [facility] Clinician: Bruce Valdes MD Discussed plan with onsite steam plant operator: Kitty Islas RN Patient is a 44-year-old female with a history of schizoaffective disorder, ADHD, past history of substance abuse and suicidal ideation. She presented to the emergency department with suicidal ideation, off her current medications and some question of possible hearing music. She was screened by [facility] services who recommended psychiatric admission on voluntary status. Attempted to see patient by video and staff were unable to start the meeting. The individual who created the meeting as host had left and no one could enter the current meeting available. I indicated that the consult will need to be delayed until they resolved their technical issues and requested they contact the access center when they are ready. Bruce Valdes MD Psychiatrist, [facility]
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
--- NOTE | 2025-07-13 17:20 | CMSP_ITS ---
Date of service: 07/13/25 Time of Service: 17:20 Care Management Safety Plan Status Status: Voluntary Reason for Wait Reason for Wait: Inpatient Admission Safety Plan Safety Plan: VOLUNTARY FOR INPATIENT PSYCHIATRIC STABILIZATION. Patient is appropriate in all interactions since arriving at [facility]; Pt has demonstrated appropriate coping and communication skills, has articulated his or her needs and concerns and is fully engaged during staff interactions. Safety plan has been established with patient, and care team, to adhere to patient goals, identify restrictions based on behavioral status, address nutrition, and determine allowed personal belongings, tools for hygiene and personal care. Determine level of activity including ambulation, level of superv ision, visitors, and determine privileges based on behaviors and level of engagement by pt. VOLUNTARY SAFETY PLAN: 1. Will remain on suicide precautions, in paper clothes 2. Will remain in Zone B under direct supervision of one-on-one staff at all times provided by [employer]; MARIA C, FORESTRY CONTRACTOR hat renovator. 3. May have paper cups, plates, finger foods as well as a cardboard spoon with which to eat meals. 4. Follow [facility] Management of the Admitted Behavioral Health Patient policy. 5. Shower available in Zone B without restriction. 6. Personal belongings-soft items permitted at RN discretion. 7. Visitors- supportive visitors, at RN discretion. 8. Activities: soft cart items, hospital tablets (Netflix/Jet+/music) approved per RN discretion. 9. Bathroom available in Zone B without restriction. 10. Phone: limited to [facility] cordless phone at RN discretion. Due to VOLUNTARY status, if patient wishes to leave [facility], staff will contact [facility] Crisis Screener ([phone]) and Forensic Dna Analyst ([phone]) as soon as possible. In the event of elopement, notify [facility] Police ([phone]). Patient is currently voluntarily at [facility] and seeking inpatient admission when a bed becomes available. [facility] Frontline Computational Linguist will continue seeking placement. Please contact the Forensic Dna Analyst ([phone]) and [facility] Computational Linguist ([phone]) for any needed changes in the Safety Plan. Safety plan has been provided to interdepartmental care team.
--- NOTE | 2025-07-13 17:20 | PDOC.CMSAFE ---
Date of service: 07/13/25 Time of Service: 17:20 Care Management Safety Plan Status Status: Voluntary Reason for Wait Reason for Wait: Inpatient Admission Safety Plan Safety Plan: VOLUNTARY FOR INPATIENT PSYCHIATRIC STABILIZATION. Patient is appropriate in all interactions since arriving at [facility]; Pt has demonstrated appropriate coping and communication skills, has articulated his or her needs and concerns and is fully engaged during staff interactions. Safety plan has been established with patient, and care team, to adhere to patient goals, identify restrictions based on behavioral status, address nutrition, and determine allowed personal belongings, tools for hygiene and personal care. Determine level of activity including ambulation, level of supervision, visitors, and determine privileges based on behaviors and level of engagement by pt. VOLUNTARY SAFETY PLAN: 1. Will remain on suicide precautions, in paper clothes 2. Will remain in Zone B under direct supervision of one-on-one staff at all times provided by [employer]; MARIA C, TELEPHONE STERILIZER scrap hoist operator. 3. May have paper cups, plates, finger foods as well as a cardboard spoon with which to eat meals. 4. Follow [facility] Management of the Admitted Behavioral Health Patient policy. 5. Shower available in Zone B without restriction. 6. Personal belongings-soft items permitted at RN discretion. 7. Visitors- supportive visitors, at RN discretion. 8. Activities: soft cart items, hospital tablets (Netflix/[place]+/music) approved per RN discretion. 9. Bathroom available in Zone B without restriction. 10. Phone: limited to [facility] cordless phone at RN discretion. Due to VOLUNTARY status, if patient wishes to leave [facility], staff will contact [facility] Crisis Screener ([phone]) and Vehicle Operator ([phone]) as soon as possible. In the event of elopement, notify [facility] Police ([phone]). Patient is currently voluntarily at [facility] and seeking inpatient admission when a bed becomes available. [facility] Frontline Certified Ophthalmic Technologist will continue seeking placement. Please contact the Vehicle Operator ([phone]) and [facility] Certified Ophthalmic Technologist ([phone]) for any needed changes in the Safety Plan. Safety plan has been provided to interdepartmental care team.
--- NOTE | 2025-07-13 17:30 | CMPROGNOTE_ITS ---
Date of service: 07/13/25 Time of Service: 17:30 Care Management Progress Note Progress Note Text Progress Note Text: CM spoke with ED RN and [facility] clinician regarding Jennyfer's plan of care. Per [facility], Jennyfer is a known client to [facility], in their TLP[facility] program. She is reporting SI 4/10 with intent, but no plan. Per report, Jennyfer recently relapsed on crack. Per RN, she has been sleeping most of the day. Jennyfer is voluntary, seeking inpatient psychiatric care. Referrals were sent by [facility]. Safety plan in place; CM will continue to follow. Social Determinants of Health Screening Will the Patient Participate in the Screening?: Unable to obtain
--- NOTE | 2025-07-13 17:30 | PDOC.CMPRO ---
Date of service: 07/13/25 Time of Service: 17:30 Care Management Progress Note Progress Note Text Progress Note Text: CM spoke with ED RN and [facility] clinician regarding Jennyfer's plan of care. Per [facility], Jennyfer is a known client to [facility], in their TLP63 program. She is reporting SI 4/10 with intent, but no plan. Per report, Jennyfer recently relapsed on crack. Per RN, she has been sleeping most of the day. Jennyfer is voluntary, seeking inpatient psychiatric care. Referrals were sent by [facility]. Safety plan in place; CM will continue to follow. Social Determinants of Health Screening Will the Patient Participate in the Screening?: Unable to obtain
[2025-07-13] MEDS: Acetaminophen 500 MG TAB 1000 MG PO (18:30)
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
[2025-07-14] MEDS: LORazepam 0.5 MG TAB PO (10:17)
[2025-07-14] MEDS: OLANZapine ODT 5 MG TAB PO (10:17)
[2025-07-14 10:50] VITALS: BP 92/61; PULSE 92; RESP 20; TEMP 36.1; O2SAT 97
[2025-07-14 11:09] LABS: Cannabinoids THC Positive (Negative)
--- NOTE | 2025-07-14 17:13 | ED.PSYCHBOAR ---
Date of service: 07/14/25 Time of Service: 17:13 Psychiatric Border Handoff Update Brief Story: Stable throughout the shift. No interventions needed. Pending placement. Avoid QT prolonging medications. Status: voluntary Able to leave: would need physician/BOLA and crisis evaluation prior to leaving Behavioral Concerns: None Potential Disposition: Inpatient placement MDM Shift Events: None Mediation Reconciliation performed: Yes Code Status ordered: Yes Diet ordered: Yes Telepsych recommendations (re: meds for agitation, etc): Avoid QT prolonging medications Discharge Plan Discharge Details Chief Complaint: PsychEval Clinical Impression: Prolonged QT interval, Suicidal ideations Primary Care Provider: Mariana Peralta ED Provider: Lizandro Zhu Home Meds and New Rx's Prescriptions: No Action omeprazole 20 mg capsule,delayed release(DR/EC) 20 mg PO DAILY Rx Instructions: 1 hour prior to meals quetiapine [Seroquel] 100 mg tablet 200 mg PO .am Rx Instructions: 100 mg qam, 400 mg qpm quetiapine 50 mg tablet 25 mg PO DAILY PRN gabapentin 300 mg capsule 300 mg PO TID trazodone 100 mg tablet 200 mg PO QHS cyclobenzaprine 10 mg tablet 10 mg PO TID PRNQty: 15 0RF clonidine HCl 0.1 mg tablet 0.1 mg PO HS PRN PRN Patient Comments: Per [place] med list - TAKE ONE (1) TABLET BY MOUTH at Bedtime NEEDED albuterol 90 mcg/actuation aerosol 180 mcg inhalation Q4H PRN PRN Patient Comments: Per [place] med list bupropion HCl [Wellbutrin SR] 150 mg tablet sustained-release 12 hr 150 mg PO BID Patient Comments: Per [place] med list gabapentin 400 mg capsule 400 mg PO TID PRN Patient Comments: Per [place] med list lorazepam [Ativan] 0.5 mg tablet 0.5 mg PO DAILY PRN Patient Comments: Per [place] med list quetiapine 400 mg tablet extended release 24 hr 400 mg PO QPM Patient Comments: Per [place] med list tramadol 25 mg tablet 25 mg PO DAILY Patient Comments: Per [place] med list ziprasidone HCl [Geodon] 80 mg capsule 80 mg PO DAILY Rx Instructions: give with food (meal/snack)
--- NOTE | 2025-07-14 18:21 | MHPN_ITS ---
Date of service: 07/14/25 Time of Service: 10:03 Mental Health Emergency Note Release [facility] release signed:: Yes Reason for Visit Reassessment In the last 2 weeks has the pt presented for ES prior to today?: Yes, presented at [facility] ED Client Information Well Housed: No,status: Homeless Non Suicidal Self Injury Current: No History: No Safety Risk/Harm to Self or Others Current Ideation to Harm Self or Others: Yes to self. (Reports increase in suicidal ideation and intent) Intent: yes, has intent. Plan: no.does not have a plan. History of suicide attempt: No history of suicide attempt reported CALM/Risk Level Does risk to harm exist?: yes. Access to means: No. Risk: High Risk Duty to warn indicated: No Asssessment/Mental Status Appearance: Unremarkable Attitude: Cooperative Behavior: Unremarkable Speech: Normal Affect: Cogruent with mood Mood: Sad and Depressed Thought process: Unremarkable Hallucinations: yes, Visual and Auditory Delusions: No Attention: Unremarkable Perception: Not impaired Orientation: Fully orientated Memory: Intact Insight: Fair Judgement: Fair Neurovegetative Symptoms Sleep: Decrease Appetitie: Decrease Interests: Decrease Energy: Decrease Libido: Not applicable Substance Use: Do you use nicotine?: No Have you used substances in the last 7 days?: No Additional Issues: Assaultive/Threatening Behavior: No Medical Concerns: No Client engaged in active self harm w/weapon: No Threatening to run away: No Child reported abuse/neglect: No Voluntarily presenting for services: Yes Domestic violence is a concern: No Extreme Psychosis or extreme behavior is present: No Impression Cl is 44 y/o woman who is being reassessed while waiting for inpatient hospital placement. She is cooperative with reassessment. She is clear and linear with her answers. Client reports that their depression, SI, and Intent have increased since getting to the hospital. States that this is because she has had time to think about her most recent relapse and the effect that it's having on her life. She states that she will not have housing because she had a place that she was going to move in, but the woman will no longer let her move in after her relapse. The client reports that she is continuing to see shadowy people and hearing music that she believes is not there. She is continuing to wait on voluntary status for inpatient hospital placement. Plan/Disposition Recommended Disposition: Hospitalization facilities contacted. Plan: Referrals have been made to all appropriate inpatient psychiatric hospitals. Person reported agreement to plan: Yes Facilities contacted if Applicable [facility] Not accepted, No bed available [facility] Not accepted, No bed available, [facility] Not accepted, No bed available Reports/communication Outcome discussed with: ED/Personnel
--- NOTE | 2025-07-14 19:30 | CMSP_ITS ---
Date of service: 07/14/25 Time of Service: 19:31 Care Management Safety Plan Status Status: Voluntary Reason for Wait Reason for Wait: Inpatient Admission Safety Plan Safety Plan: VOLUNTARY FOR INPATIENT PSYCHIATRIC STABILIZATION. Patient is appropriate in all interactions since arriving at [facility]; Pt has demonstrated appropriate coping and communication skills, has articulated his or her needs and concerns and is fully engaged during staff interactions. Safety plan has been established with patient, and care team, to adhere to patient goals, identify restrictions based on behavioral status, address nutrition, and determine allowed personal belongings, tools for hygiene and personal care. Determine level of activity including ambulation, level of superv ision, visitors, and determine privileges based on behaviors and level of engagement by pt. VOLUNTARY SAFETY PLAN: 1. Will remain on suicide precautions, in paper clothes 2. Will remain in Zone B under direct supervision of one-on-one staff at all times provided by [employer]; MARIA C, ONION TOPPER weatherization and housing inspector. 3. May have paper cups, plates, finger foods as well as a cardboard spoon with which to eat meals. 4. Follow [facility] Management of the Admitted Behavioral Health Patient policy. 5. Shower available in Zone B without restriction. 6. Personal belongings-soft items permitted at RN discretion. 7. Visitors- supportive visitors, at RN discretion. 8. Activities: soft cart items, hospital tablets (Netflix/Berne+/music) approved per RN discretion. 9. Bathroom available in Zone B without restriction. 10. Phone: limited to [facility] cordless phone at RN discretion. Due to VOLUNTARY status, if patient wishes to leave [facility], staff will contact [facility] Crisis Screener ([phone]) and Global Climate Change Analyst ([phone]) as soon as possible. In the event of elopement, notify [facility] Police ([phone]). Patient is currently voluntarily at [facility] and seeking inpatient admission when a bed becomes available. [facility] Frontline Wood Heel Flap Rubber will continue seeking placement. Please contact the Global Climate Change Analyst ([phone]) and [facility] Wood Heel Flap Rubber ([phone]) for any needed changes in the Safety Plan. Safety plan has been provided to interdepartmental care team.
--- NOTE | 2025-07-14 19:30 | PDOC.CMSAFE ---
Date of service: 07/14/25 Time of Service: 19:31 Care Management Safety Plan Status Status: Voluntary Reason for Wait Reason for Wait: Inpatient Admission Safety Plan Safety Plan: VOLUNTARY FOR INPATIENT PSYCHIATRIC STABILIZATION. Patient is appropriate in all interactions since arriving at [facility]; Pt has demonstrated appropriate coping and communication skills, has articulated his or her needs and concerns and is fully engaged during staff interactions. Safety plan has been established with patient, and care team, to adhere to patient goals, identify restrictions based on behavioral status, address nutrition, and determine allowed personal belongings, tools for hygiene and personal care. Determine level of activity including ambulation, level of supervision, visitors, and determine privileges based on behaviors and level of engagement by pt. VOLUNTARY SAFETY PLAN: 1. Will remain on suicide precautions, in paper clothes 2. Will remain in Zone B under direct supervision of one-on-one staff at all times provided by [employer]; MARIA C, BIOFUELS PRODUCT MANAGER senior android software engineer. 3. May have paper cups, plates, finger foods as well as a cardboard spoon with which to eat meals. 4. Follow [facility] Management of the Admitted Behavioral Health Patient policy. 5. Shower available in Zone B without restriction. 6. Personal belongings-soft items permitted at RN discretion. 7. Visitors- supportive visitors, at RN discretion. 8. Activities: soft cart items, hospital tablets (Netflix/[place]+/music) approved per RN discretion. 9. Bathroom available in Zone B without restriction. 10. Phone: limited to [facility] cordless phone at RN discretion. Due to VOLUNTARY status, if patient wishes to leave [facility], staff will contact [facility] Crisis Screener ([phone]) and Coreroom Foundry Laborer ([phone]) as soon as possible. In the event of elopement, notify [facility] Police ([phone]). Patient is currently voluntarily at [facility] and seeking inpatient admission when a bed becomes available. [facility] Frontline Manager Stars will continue seeking placement. Please contact the Coreroom Foundry Laborer ([phone]) and [facility] Manager Stars ([phone]) for any needed changes in the Safety Plan. Safety plan has been provided to interdepartmental care team.
--- NOTE | 2025-07-14 19:31 | PDOC.CMPRO ---
Date of service: 07/14/25 Time of Service: 19:31 Care Management Progress Note Progress Note Text Progress Note Text: Per report, Jennyfer continues to feel an increase in her SI while awaiting hospitalization, in zone B. Per RN, she has been sleeping a lot and staying in her room. She remains voluntary, seeking inpatient psychiatric treatment. Referrals are pending at facilities. Safety plan in place; CM will continue to follow. Social Determinants of Health Screening Will the Patient Participate in the Screening?: Unable to obtain
[2025-07-14] MEDS: OLANZapine 5 MG TAB PO (20:30)
--- NOTE | 2025-07-15 07:10 | CMSP_ITS ---
Date of service: 07/15/25 Time of Service: 08:34 Care Management Safety Plan Status Status: Voluntary Reason for Wait Reason for Wait: Inpatient Admission Safety Plan Safety Plan: VOLUNTARY FOR INPATIENT PSYCHIATRIC STABILIZATION. Patient is appropriate in all interactions since arriving at [facility]; Pt has demonstrated appropriate coping and communication skills, has articulated his or her needs and concerns and is fully engaged during staff interactions. Safety plan has been established with patient, and care team, to adhere to patient goals, identify restrictions based on behavioral status, address nutrition, and determine allowed personal belongings, tools for hygiene and personal care. Determine level of activity including ambulation, level of supervision, visitors, and determine privileges based on behaviors and level of engagement by pt. VOLUNTARY SAFETY PLAN: 1. Will remain on suicide precautions, in paper clothes 2. Will remain in Zone B under direct supervision of one-on-one staff at all times provided by [employer]; MARIA C, ARCHITECTURAL DESIGN PROFESSOR director channel. 3. May have paper cups, plates, finger foods as well as a cardboard spoon with which to eat meals. 4. Follow [facility] Management of the Admitted Behavioral Health Patient policy. 5. Shower available in Zone B without restriction. 6. Personal belongings-soft items permitted at RN discretion. 7. Visitors- supportive visitors, at RN discretion. 8. Activities: soft cart items, hospital tablets (Netflix/Drury+/music) approved per RN discretion. 9. Bathroom available in Zone B without restriction. 10. Phone: limited to [facility] cordless phone at RN discretion. Due to VOLUNTARY status, if patient wishes to leave [facility], staff will contact [facility] Crisis Screener ([phone]) and Sink Cutter ([phone]) as soon as possible. In the event of elopement, notify [facility] Police ([phone]). Patient is currently voluntarily at [facility] and seeking inpatient admission when a bed becomes available. [facility] Frontline Multi Site Leasing Consultant will continue seeking placement. Please contact the Sink Cutter ([phone]) and [facility] Multi Site Leasing Consultant ([phone]) for any needed changes in the Safety Plan. Safety plan has been provided to interdepartmental care team.
--- NOTE | 2025-07-15 07:10 | PDOC.CMSAFE ---
Date of service: 07/15/25 Time of Service: 08:34 Care Management Safety Plan Status Status: Voluntary Reason for Wait Reason for Wait: Inpatient Admission Safety Plan Safety Plan: VOLUNTARY FOR INPATIENT PSYCHIATRIC STABILIZATION. Patient is appropriate in all interactions since arriving at [facility]; Pt has demonstrated appropriate coping and communication skills, has articulated his or her needs and concerns and is fully engaged during staff interactions. Safety plan has been established with patient, and care team, to adhere to patient goals, identify restrictions based on behavioral status, address nutrition, and determine allowed personal belongings, tools for hygiene and personal care. Determine level of activity including ambulation, level of supervision, visitors, and determine privileges based on behaviors and level of engagement by pt. VOLUNTARY SAFETY PLAN: 1. Will remain on suicide precautions, in paper clothes 2. Will remain in Zone B under direct supervision of one-on-one staff at all times provided by [employer]; MARIA C, OPERATING ROOM TECH order takers supervisor. 3. May have paper cups, plates, finger foods as well as a cardboard spoon with which to eat meals. 4. Follow [facility] Management of the Admitted Behavioral Health Patient policy. 5. Shower available in Zone B without restriction. 6. Personal belongings-soft items permitted at RN discretion. 7. Visitors- supportive visitors, at RN discretion. 8. Activities: soft cart items, hospital tablets (Netflix/[place]osca+/music) approved per RN discretion. 9. Bathroom available in Zone B without restriction. 10. Phone: limited to [facility] cordless phone at RN discretion. Due to VOLUNTARY status, if patient wishes to leave [facility], staff will contact [facility] Crisis Screener ([phone]) and Induction Brazer ([phone]) as soon as possible. In the event of elopement, notify [facility] Police ([phone]). Patient is currently voluntarily at [facility] and seeking inpatient admission when a bed becomes available. [facility] Frontline Assessment Manager will continue seeking placement. Please contact the Induction Brazer ([phone]) and [facility] Assessment Manager ([phone]) for any needed changes in the Safety Plan. Safety plan has been provided to interdepartmental care team.
--- NOTE | 2025-07-15 07:10 | PDOC.CMPRO ---
Date of service: 07/15/25 Time of Service: 11:17 Care Management Progress Note Progress Note Text Progress Note Text: CM huddled with [facility] and [facility] staff regarding Jennyfer’s plan of care. Per RN, Jennyfer has been appropriately engaging, and Vanesa has inquired about her status. According to Jose M from [facility], Jennyfer reports hearing nonexistent music and seeing nonexistent shadow figures; however, she appears clear and appropriate during interactions. Jennyfer also reports worsening SI since being hospitalized. Referrals are pending, and a safety plan is in place. CM will continue to follow. Status Status: Voluntary Social Determinants of Health Screening Will the Patient Participate in the Screening?: Unable to obtain
--- NOTE | 2025-07-15 13:13 | ED.PSYCHBOAR ---
Date of service: 07/15/25 Time of Service: 13:13 Psychiatric Border Handoff Update Brief Story: Care signed out by Dr. Sol, please see her documentation regarding prior ED course. Patient is here with suicidal ideation and auditory hallucinations. She does have notable prolonged QTc. Patient is been started on Zyprexa by telepsychiatry. She is here voluntarily awaiting placement. Status: voluntary Able to leave: would need physician/BOLA and crisis evaluation prior to leaving Discharge Plan Discharge Details Chief Complaint: PsychEval Clinical Impression: Prolonged QT interval, Suicidal ideations Primary Care Provider: Mariana Peralta ED Provider: Kathleen Sol Home Meds and New Rx's Prescriptions: No Action omeprazole 20 mg capsule,delayed release(DR/EC) 20 mg PO DAILY Rx Instructions: 1 hour prior to meals quetiapine [Seroquel] 100 mg tablet 200 mg PO .am Rx Instructions: 100 mg qam, 400 mg qpm quetiapine 50 mg tablet 25 mg PO DAILY PRN gabapentin 300 mg capsule 300 mg PO TID trazodone 100 mg tablet 200 mg PO QHS Patient Comments: Pt states taking 200mg cyclobenzaprine 10 mg tablet 10 mg PO TID PRNQty: 15 0RF clonidine HCl 0.1 mg tablet 0.1 mg PO HS PRN PRN Patient Comments: Per [place] med list - TAKE ONE (1) TABLET BY MOUTH at Bedtime NEEDED albuterol 90 mcg/actuation aerosol 180 mcg inhalation Q4H PRN PRN Patient Comments: Per [place] med list bupropion HCl [Wellbutrin SR] 150 mg tablet sustained-release 12 hr 150 mg PO BID Patient Comments: Per [place] med list gabapentin 400 mg capsule 400 mg PO TID PRN Patient Comments: Per [place] med list lorazepam [Ativan] 0.5 mg tablet 0.5 mg PO DAILY PRN Patient Comments: Per [place] med list quetiapine 400 mg tablet extended release 24 hr 400 mg PO QPM Patient Comments: Per [place] med list tramadol 25 mg tablet 25 mg PO DAILY Patient Comments: Per [place] med list ziprasidone HCl [Geodon] 80 mg capsule 80 mg PO DAILY Rx Instructions: give with food (meal/snack)
--- NOTE | 2025-07-15 13:38 | PDOC.MHPN2 ---
Date of service: 07/15/25 Time of Service: 09:05 Mental Health Emergency Note Release [facility] release signed:: Yes Reason for Visit Reassessment In the last 2 weeks has the pt presented for ES prior to today?: No Client Information Client is: Adult Outpatient Well Housed: No,status: Homeless Non Suicidal Self Injury Current: No History: No Safety Risk/Harm to Self or Others Current Ideation to Harm Self or Others: Yes to self. Intent: yes, has intent. Plan: no.does not have a plan. History of suicide attempt: No history of suicide attempt reported CALM/Risk Level Does risk to harm exist?: yes. Access to means: No. Risk: High Risk Duty to warn indicated: No Asssessment/Mental Status Appearance: Unremarkable Attitude: Cooperative Behavior: Hyperactivity Speech: Normal Affect: Cogruent with mood Mood: Sad and Depressed Thought process: Unremarkable Hallucinations: yes, (Reports seeing shadow people and hearing music that she believes isn't there) Visual and Auditory Delusions: No evidence Attention: Unremarkable Perception: Not impaired Orientation: Fully orientated Memory: Intact Insight: Fair Judgement: Fair Neurovegetative Symptoms Sleep: Increase Appetitie: Decrease Interests: Decrease Energy: Decrease Libido: Not applicable Substance Use: Have you used substances in the last 7 days?: No Additional Issues: Assaultive/Threatening Behavior: No Medical Concerns: No Client engaged in active self harm w/weapon: No Threatening to run away: No Child reported abuse/neglect: No Voluntarily presenting for services: Yes Domestic violence is a concern: No Extreme Psychosis or extreme behavior is present: No Impression Client reports that Nothing has changed. She states that she continues to feel Suicidal Ideation and Intent. She does not have an identified plan, but states I'd figure it out. She reports that she has had +Auditory Hallucinations and +Visual Hallucinations since she stopped taking her medications approximately 2 weeks ago. Plan/Disposition Recommended Disposition: Hospitalization (Client voluntarily waiting for inpatient hospital placement.) facilities contacted. Plan: Client will wait in Zone B of [facility] for appropriate inpatient hospital placement. Person reported agreement to plan: Yes Reports/communication Outcome discussed with: ED/Personnel
[2025-07-15] MEDS: LORazepam 0.5 MG TAB PO ×2 (13:50→17:47)
[2025-07-15] MEDS: Ondansetron O.D.T. 4 MG TABEF PO (17:22)
[2025-07-15 17:44] LABS: Abs Immature Grans 0.04 10^3/uL (0.0-0.06); HCT 38.5 % (36.0-46.0); HGB 12.3 g/dL (11.2-15.7); Immature Grans % 0.4 %; MCH 28.3 pg (27.0-33.0); MCHC 31.9 % (32.0-36.0); MCV 89 fL (80-95); MPV 8.6 fL (8.0-11.0); Platelet Count 354 10^3/uL (130-400); RBC 4.34 10^6/uL (3.93-5.22); RDW 14.9 % (11.7-14.6); RDW-SD 48.9 fL; WBC 9.95 10^3/uL (4.4-10.8)
[2025-07-15 18:06] LABS: Magnesium 1.9 mg/dL (1.6-2.6)
[2025-07-15 18:08] LABS: ALT 12 U/L (10-49); AST 14 U/L (<34); Albumin 4.2 g/dL (3.4-5.0); Alkaline Phosphatase 79 U/L (46-116); Anion Gap 8.3 mmol/L (3-11); BUN 10 mg/dL (9-23); Bilirubin, Total 0.30 mg/dL (0.2-1.2); CO2 26.7 mmol/L (20.0-31.0); Calcium 9.2 mg/dL (8.3-10.6); Chloride 108 mmol/L (98-107); Glucose 101 mg/dL (74-106); Potassium 3.0 mmol/L (3.5-5.1); Sodium 143 mmol/L (136-145); Total Protein 7.1 g/dL (5.7-8.2)
[2025-07-15] MEDS: Potassium Chloride 20 MEQ TABCR 40 MEQ PO (18:46)
[2025-07-15] MEDS: OLANZapine 5 MG TAB PO (20:15)
[2025-07-15] MEDS: Omeprazole 20 MG CAPCR PO (20:16)
[2025-07-15] MEDS: cloNIDine 0.1 MG TAB PO (20:20)
--- NOTE | 2025-07-16 08:33 | CMSP_ITS ---
Date of service: 07/16/25 Time of Service: 08:33 Care Management Safety Plan Status Status: Voluntary Reason for Wait Reason for Wait: Inpatient Admission Safety Plan Safety Plan: VOLUNTARY FOR INPATIENT PSYCHIATRIC STABILIZATION. Patient is appropriate in all interactions since arriving at [facility]; Pt has demonstrated appropriate coping and communication skills, has articulated his or her needs and concerns and is fully engaged during staff interactions. Safety plan has been established with patient, and care team, to adhere to patient goals, identify restrictions based on behavioral status, address nutrition, and determine allowed personal belongings, tools for hygiene and personal care. Determine level of activity including ambulation, level of supervision, visitors, and determine privileges based on behaviors and level of engagement by pt. VOLUNTARY SAFETY PLAN: 1. Will remain on suicide precautions, in paper clothes 2. Will remain in Zone B under direct supervision of one-on-one staff at all times provided by [employer]; MARIA C, BAIL ATTACHER ed transporter. 3. May have paper cups, plates, finger foods as well as a cardboard spoon with which to eat meals. 4. Follow [facility] Management of the Admitted Behavioral Health Patient policy. 5. Shower available in Zone B without restriction. 6. Personal belongings-soft items permitted at RN discretion. 7. Visitors- supportive visitors, at RN discretion. 8. Activities: soft cart items, hospital tablets (Netflix/[place]+/music) approved per RN discretion. 9. Bathroom available in Zone B without restriction. 10. Phone: limited to [facility] cordless phone at RN discretion. Due to VOLUNTARY status, if patient wishes to leave [facility], staff will contact [facility] Crisis Screener ([phone]) and Emissions Inspector ([phone]) as soon as possible. In the event of elopement, notify [facility] Police ([phone]). Patient is currently voluntarily at [facility] and seeking inpatient admission when a bed becomes available. [facility] Frontline Graphic Design Teacher will continue seeking placement. Please contact the Emissions Inspector ([phone]) and [facility] Graphic Design Teacher ([phone]) for any needed changes in the Safety Plan. Safety plan has been provided to interdepartmental care team.
--- NOTE | 2025-07-16 08:33 | PDOC.CMPRO ---
Date of service: 07/16/25 Time of Service: 08:33 Care Management Progress Note Progress Note Text Progress Note Text: CM huddled with [facility] Ayleen and [facility] staff regarding Jennyfer’s plan of care. Per RN, Vanesa has inquired about her status and requesting additional documentation. Per report, Jennyfer is often sleeping. Per [facility] Vanesa does not currently have any appropriate beds. Referrals pending and safety plan is in place. CM will continue to follow. Status Status: Voluntary Social Determinants of Health Screening Will the Patient Participate in the Screening?: Unable to obtain
[2025-07-16] MEDS: traMADol 50 MG TAB 25 MG PO (10:36)
[2025-07-16] MEDS: Omeprazole 20 MG CAPCR PO ×2 (10:36→19:57)
[2025-07-16 10:41] VITALS: BP 98/67; PULSE 97; TEMP 36.4; O2SAT 95
--- NOTE | 2025-07-16 12:56 | ED.PSYCHBOAR ---
Date of service: 07/16/25 Time of Service: 12:56 Psychiatric Border Handoff Update Status: voluntary Able to leave: would need physician/BOLA and crisis evaluation prior to leaving Behavioral Concerns: none Potential Disposition: none MDM Shift Events: none Medical Concerns: Patient notes recent unprotected sex. No abnormal vaginal discharge or pain. Plan to send GC/chlamydia on urine. Potassium was 3.0 yesterday. She was given potassium supplementation. Mediation Reconciliation performed: Yes Code Status ordered: Yes Diet ordered: Yes Discharge Plan Discharge Details Chief Complaint: PsychEval Clinical Impression: Prolonged QT interval, Suicidal ideations Primary Care Provider: Mariana Peralta ED Provider: Felix Hardy [place] Meds and New Rx's Prescriptions: No Action omeprazole 20 mg capsule,delayed release(DR/EC) 20 mg PO DAILY Rx Instructions: 1 hour prior to meals quetiapine [Seroquel] 100 mg tablet 200 mg PO .am Rx Instructions: 100 mg qam, 400 mg qpm quetiapine 50 mg tablet 25 mg PO DAILY PRN gabapentin 300 mg capsule 300 mg PO TID trazodone 100 mg tablet 200 mg PO QHS Patient Comments: Pt states taking 200mg cyclobenzaprine 10 mg tablet 10 mg PO TID PRNQty: 15 0RF clonidine HCl 0.1 mg tablet 0.1 mg PO HS PRN PRN Patient Comments: Per [place] med list - TAKE ONE (1) TABLET BY MOUTH at Bedtime NEEDED albuterol 90 mcg/actuation aerosol 180 mcg inhalation Q4H PRN PRN Patient Comments: Per [place] med list bupropion HCl [Wellbutrin SR] 150 mg tablet sustained-release 12 hr 150 mg PO BID Patient Comments: Per [place] med list gabapentin 400 mg capsule 400 mg PO TID PRN Patient Comments: Per [place] med list lorazepam [Ativan] 0.5 mg tablet 0.5 mg PO DAILY PRN Patient Comments: Per [place] med list quetiapine 400 mg tablet extended release 24 hr 400 mg PO QPM Patient Comments: Per [place] med list tramadol 25 mg tablet 25 mg PO DAILY Patient Comments: Per [place] med list ziprasidone HCl [Geodon] 80 mg capsule 80 mg PO DAILY Rx Instructions: give with food (meal/snack)
[2025-07-16] MEDS: LORazepam 0.5 MG TAB PO (16:31)
--- NOTE | 2025-07-16 16:52 | MHPN_ITS ---
Date of service: 07/16/25 Time of Service: 10:11 Mental Health Emergency Note Release [facility] release signed:: Yes Reason for Visit The client is known to [facility] and currently receives services through the [facility] program. The client has been hospitalized numerous times. The client presented to [facility] ED on 07/14 with SI, intent and plan. The client is currently at [facility] ED seeking voluntary inpatient treatment. This jingle writer meets with the client face to face at [facility] for daily re-assessment. 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 Access to means: No. Risk: Moderate Risk Impression The client is a single 44 year old female that is currently homeless, however staying in the [facility]. The clients employment status is unknown to this jingle writer. The client is laying down in the hospital bed, dressed in proper paper hospital attire. The client appears disheveled and reports continuing to endorse suicidal ideation (SI) with an intent level of 5/10. Furthermore, the client indicates experiencing poor appetite and sleep. Additionally, the client reports not receiving her medications, which include Symbicort and Valtrex, necessary for managing her asthma. Plan/Disposition Recommended Disposition: Hospitalization facilities contacted. Plan: The client will remain at [facility] on voluntary status pending admission to an inpatient facility. The client will be re-assessed daily until placement is secured or the client is able to be safety planned back to the community. Reports/communication Outcome discussed with: ED/Personnel (Huddle completed with [facility] staff)
--- NOTE | 2025-07-16 16:52 | PDOC.MHPN2 ---
Date of service: 07/16/25 Time of Service: 10:11 Mental Health Emergency Note Release [facility] release signed:: Yes Reason for Visit The client is known to [facility] and currently receives services through the [facility] program. The client has been hospitalized numerous times. The client presented to [facility] ED on 07/14 with SI, intent and plan. The client is currently at [facility] ED seeking voluntary inpatient treatment. This telegraphic typewriter operator chief meets with the client face to face at [facility] for daily re-assessment. 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 Access to means: No. Risk: Moderate Risk Impression The client is a single 44 year old female that is currently homeless, however staying in the [facility]. The clients employment status is unknown to this telegraphic typewriter operator chief. The client is laying down in the hospital bed, dressed in proper paper hospital attire. The client appears disheveled and reports continuing to endorse suicidal ideation (SI) with an intent level of 5/10. Furthermore, the client indicates experiencing poor appetite and sleep. Additionally, the client reports not receiving her medications, which include Symbicort and Valtrex, necessary for managing her asthma. Plan/Disposition Recommended Disposition: Hospitalization facilities contacted. Plan: The client will remain at [facility] on voluntary status pending admission to an inpatient facility. The client will be re-assessed daily until placement is secured or the client is able to be safety planned back to the community. Reports/communication Outcome discussed with: ED/Personnel (Huddle completed with [facility] staff)
[2025-07-16 19:18] VITALS: BP 110/77; PULSE 62; TEMP 36.1; O2SAT 91
[2025-07-16] MEDS: OLANZapine 5 MG TAB PO (19:56)
--- NOTE | 2025-07-17 07:09 | ED.PSYCHBOAR ---
Date of service: 07/17/25 Time of Service: 07:09 Psychiatric Border Handoff Update Brief Story: Patient was here and has been doing well, she had prolonged QT and was taken off all QT prolonging medications. Yesterday she informed my colleague that she had had unprotected sex in the past, and gonorrhea and Chlamydia testing was performed. These results are not yet back. She also was noted to be slightly hypokalemic yesterday at 3.0, she was given oral replacement therapy, and repeat blood work today shows normal potassium level. Additionally she asked to be restarted on her Valtrex for prevention of return of her history of herpes. This has been started. [facility]. I have extensively reviewed the treatment plan with the patient. I have addressed all patient concerns at this time. I have also discussed the plan with the admitting physician and they agree with the current assessment and plan and have agreed to assume responsibility for the patient. All parties demonstrate verbal understanding and agreement with our assessment and plan at this time. The documentation in this chart was dictated using Carticipate dictation software. Please excuse any dictation errors. At time of transfer the patient was reassessed and continued to demonstrate No signs of acute respiratory distress requiring intubation, hemodynamic instability requiring pressor support, or rapidly declining mental status. Status: voluntary Able to leave: would need physician/BOLA and crisis evaluation prior to leaving Potential Disposition: [facility] Mediation Reconciliation performed: Yes Code Status ordered: Yes Diet ordered: Yes Future to do Items: Follow-up on gonorrhea and chlamydia probe Discharge Plan Disposition Patient Disposition: Psychiatric Hospital/Unit Specific Psychiatric Facility: [facility] Discharge Details Clinical Impression: Prolonged QT interval, Suicidal ideations Primary Care Provider: Mariana Peralta ED Provider: Lizandro Zhu Home Meds and New Rx's Prescriptions: No Action omeprazole 20 mg capsule,delayed release(DR/EC) 20 mg PO DAILY Rx Instructions: 1 hour prior to meals quetiapine [Seroquel] 100 mg tablet 200 mg PO .am Rx Instructions: 100 mg qam, 400 mg qpm quetiapine 50 mg tablet 25 mg PO DAILY PRN gabapentin 300 mg capsule 300 mg PO TID trazodone 100 mg tablet 200 mg PO QHS Patient Comments: Pt states taking 200mg cyclobenzaprine 10 mg tablet 10 mg PO TID PRNQty: 15 0RF clonidine HCl 0.1 mg tablet 0.1 mg PO HS PRN PRN Patient Comments: Per [place] med list - TAKE ONE (1) TABLET BY MOUTH at Bedtime NEEDED albuterol 90 mcg/actuation aerosol 180 mcg inhalation Q4H PRN PRN Patient Comments: Per [place] med list bupropion HCl [Wellbutrin SR] 150 mg tablet sustained-release 12 hr 150 mg PO BID Patient Comments: Per [place] med list gabapentin 400 mg capsule 400 mg PO TID PRN Patient Comments: Per [place] med list lorazepam [Ativan] 0.5 mg tablet 0.5 mg PO DAILY PRN Patient Comments: Per [place] med list quetiapine 400 mg tablet extended release 24 hr 400 mg PO QPM Patient Comments: Per [place] med list tramadol 25 mg tablet 25 mg PO DAILY Patient Comments: Per [place] med list ziprasidone HCl [Geodon] 80 mg capsule 80 mg PO DAILY Rx Instructions: give with food (meal/snack) Discharge Instructions Additional Instructions: Patient was here and has been doing well, she had prolonged QT and was taken off all QT prolonging medications. Yesterday she informed my colleague that she had had unprotected sex in the past, and gonorrhea and Chlamydia testing was performed. These results are not yet back. She also was noted to be slightly hypokalemic yesterday at 3.0, she was given oral replacement therapy, and repeat blood work today shows normal potassium level. Additionally she asked to be restarted on her Valtrex for prevention of return of her history of herpes. This has been started. I have been contacted by [facility] Dr. Mendoza, he accepts the patient for transfer. I have extensively reviewed the treatment plan with the patient. I have addressed all patient concerns at this time. I have also discussed the plan with the admitting physician and they agree with the current assessment and plan and have agreed to assume responsibility for the patient. All parties demonstrate verbal understanding and agreement with our assessment and plan at this time. The documentation in this chart was dictated using Carticipate dictation software. Please excuse any dictation errors. At time of transfer the patient was reassessed and continued to demonstrate No signs of acute respiratory distress requiring intubation, hemodynamic instability requiring pressor support, or rapidly declining mental status.
--- NOTE | 2025-07-17 08:18 | CMSP_ITS ---
Date of service: 07/17/25 Time of Service: 08:18 Care Management Safety Plan Status Status: Voluntary Reason for Wait Reason for Wait: Inpatient Admission Safety Plan Safety Plan: VOLUNTARY FOR INPATIENT PSYCHIATRIC STABILIZATION. Patient is appropriate in all interactions since arriving at [facility]; Pt has demonstrated appropriate coping and communication skills, has articulated his or her needs and concerns and is fully engaged during staff interactions. Safety plan has been established with patient, and care team, to adhere to patient goals, identify restrictions based on behavioral status, address nutrition, and determine allowed personal belongings, tools for hygiene and personal care. Determine level of activity including ambulation, level of supervision, visitors, and determine privileges based on behaviors and level of engagement by pt. 1300: Jennyfer is being discharged to [facility] and was transported by the [facility]'s Department. An interdisciplinary department huddle was completed individually with the RN seed production field supervisor, Primary RN and [facility] clinician and CM to review plan. VOLUNTARY SAFETY PLAN: 1. Will remain on suicide precautions, in paper clothes 2. Will remain in Zone B under direct supervision of one-on-one staff at all times provided by [employer]; MARIA C, DIGITAL ADVERTISING SPECIALIST deputy attorney general. 3. May have paper cups, plates, finger foods as well as a cardboard spoon with which to eat meals. 4. Follow [facility] Management of the Admitted Behavioral Health Patient policy. 5. Shower available in Zone B without restriction. 6. Personal belongings-soft items permitted at RN discretion. 7. Visitors- supportive visitors, at RN discretion. 8. Activities: soft cart items, hospital tablets (Netflix/[place]+/music) approved per RN discretion. 9. Bathroom available in Zone B without restriction. 10. Phone: limited to [facility] cordless phone at RN discretion. Due to VOLUNTARY status, if patient wishes to leave [facility], staff will contact [facility] Crisis Screener ([phone]) and Fuel Yard Operator ([phone]) as soon as possible. In the event of elopement, notify [facility] Police ([phone]). Patient is currently voluntarily at [facility] and seeking inpatient admission when a bed becomes available. [facility] Frontline Upholstery Mechanic will continue seeking placement. Please contact the Fuel Yard Operator ([phone]) and [facility] Upholstery Mechanic ([phone]) for any needed changes in the Safety Plan. Safety plan has been provided to interdepartmental care team.
--- NOTE | 2025-07-17 08:18 | PDOC.CMSAFE ---
Date of service: 07/17/25 Time of Service: 08:18 Care Management Safety Plan Status Status: Voluntary Reason for Wait Reason for Wait: Inpatient Admission Safety Plan Safety Plan: VOLUNTARY FOR INPATIENT PSYCHIATRIC STABILIZATION. Patient is appropriate in all interactions since arriving at [facility]; Pt has demonstrated appropriate coping and communication skills, has articulated his or her needs and concerns and is fully engaged during staff interactions. Safety plan has been established with patient, and care team, to adhere to patient goals, identify restrictions based on behavioral status, address nutrition, and determine allowed personal belongings, tools for hygiene and personal care. Determine level of activity including ambulation, level of supervision, visitors, and determine privileges based on behaviors and level of engagement by pt. 1300: Jennyfer is being discharged to [facility] and was transported by the [facility]'s Department. An interdisciplinary department huddle was completed individually with the RN mixing supervisor, Primary RN and [facility] clinician and CM to review plan. VOLUNTARY SAFETY PLAN: 1. Will remain on suicide precautions, in paper clothes 2. Will remain in Zone B under direct supervision of one-on-one staff at all times provided by [employer]; MARIA C, ENGINEERING ADMINISTRATOR bearing inspector. 3. May have paper cups, plates, finger foods as well as a cardboard spoon with which to eat meals. 4. Follow [facility] Management of the Admitted Behavioral Health Patient policy. 5. Shower available in Zone B without restriction. 6. Personal belongings-soft items permitted at RN discretion. 7. Visitors- supportive visitors, at RN discretion. 8. Activities: soft cart items, hospital tablets ([employer]+/music) approved per RN discretion. 9. Bathroom available in Zone B without restriction. 10. Phone: limited to [facility] cordless phone at RN discretion. Due to VOLUNTARY status, if patient wishes to leave [facility], staff will contact [facility] Crisis Screener ([phone]) and Chief Contract Officer ([phone]) as soon as possible. In the event of elopement, notify [facility] Police ([phone]). Patient is currently voluntarily at [facility] and seeking inpatient admission when a bed becomes available. [facility] Frontline Supervisor [employer] will continue seeking placement. Please contact the Chief Contract Officer ([phone]) and [facility] Supervisor Matrix ([phone]) for any needed changes in the Safety Plan. Safety plan has been provided to interdepartmental care team.
[2025-07-17] MEDS: Omeprazole 20 MG CAPCR PO (08:51)
[2025-07-17] MEDS: traMADol 50 MG TAB 25 MG PO (08:51)
[2025-07-17 09:43] VITALS: BP 115/67; PULSE 96; TEMP 36.2; O2SAT 93
[2025-07-17] MEDS: valACYclovir 500 MG TAB PO (10:00)
[2025-07-17] MEDS: Acetaminophen 500 MG TAB 1000 MG PO (10:02)
[2025-07-17 10:34] LABS: Anion Gap 8.4 mmol/L (3-11); BUN 8 mg/dL (9-23); CO2 24.6 mmol/L (20.0-31.0); Calcium 9.0 mg/dL (8.3-10.6); Chloride 107 mmol/L (98-107); Glucose 146 mg/dL (74-106); Potassium 3.9 mmol/L (3.5-5.1); Sodium 140 mmol/L (136-145)
[2025-07-17] MEDS: LORazepam 0.5 MG TAB PO (13:01)
[2025-07-19 11:40] LABS: Chlamydia Result Negative (Negative); GC Result Negative (Negative)
== END 2025-07-17 13:34 ==
PROVIDERS: Emergency Medicine; Student in an Organized Health Care Education/Training Program; Emergency Provider Student in an Organized Health Care Education/Training Program; PCP Nurse Practitioner Family
DX: R94.31 Abnormal electrocardiogram [ECG] [EKG] (principal); R45.851 Suicidal ideations; Z59.01 Sheltered homelessness; Z59.10 Inadequate housing, unspecified
CPT/HCPCS: 99285 ×6; 81025; 00123; 80048; 80053; 80307; 87491; 87591; 93005; 96127; H0046; 83735; 85025; 93010